=== PATIENT | male | born 1955 | race Caucasian/White ===

== ENCOUNTER 2019-05-31 09:05 | Emergency (ER) | payer SELFPAY ==
--- NOTE | 2019-05-31 09:12 | XR_ITS ---
WS: [id number] XR chest 1V portable [id number] REASON FOR EXAM: syncope FINDINGS: Decreased vascularity in both lung lopez consistent with centrilobular emphysema. There is arteriosclerotic changes in the arch of the aorta. The heart is small. There is degenerate changes of the thoracic spine. XR/XR chest 1V portable [id number] IMPRESSION: Chronic obstructive pulmonary disease.
[2019-05-31 09:15] VITALS: BP 154/86; PULSE 92; RESP 16; TEMP 36.6; O2SAT 97; BMI 22.0
[2019-05-31 09:44] LABS: Basophils % 0.5 %; Eosinophils # 0.1 10^3/uL (0.0-0.8); Eosinophils % 1.6 %; Hematocrit 40.5 % (42.0-52.0); Hemoglobin 15.2 g/dL (11.7-16.6); Lymphocytes # 0.9 10^3/uL (0.8-4.8); Mean Corpuscular HGB Conc 37.5 g/dL (30.0-36.0); Mean Corpuscular Hemoglobin 34.3 pg (28.0-34.0); Mean Corpuscular Volume 91.4 fL (80-94); Mean Platelet Volume 9.6 fL (7.4-10.4); Monocytes # 1.1 10^3/uL (0.2-0.9); Monocytes % 17.5 %; Neutrophils # 4.2 10^3/uL (1.8-7.7); Neutrophils % 65.8 %; Nucleated Red Blood Cells % 0 %; Platelet Count 234 10^3/cmm (130-400); Red Blood Count 4.43 10^6/uL (4.1-5.3); Red Cell Distribution Width 11.1 % (12.1-15.1); White Blood Count 6.4 10^3/uL (4.0-10.0)
--- NOTE | 2019-05-31 09:49 | W.ED.FALL ---
HPI - Fall General: Chief Complaint: Fall Stated Complaint: SYNCOPE Time Seen by Provider: 05/31/19 09:21 [facility] ED PFSH: Social History Smoking and tobacco status: current every day smoker Course Vital Signs: Vital signs: Vital Signs Temperature 97.8 F 05/31/19 09:15 Pulse Rate 92 05/31/19 09:15 Respiratory Rate 16 05/31/19 09:15 Blood Pressure 154/86 05/31/19 09:15 Pulse Oximetry 97 05/31/19 09:15 MDM - Fall Lab Data: Labs: Lab Results 05/31/19 Range/Units 09:37 WBC 6.4 (4.0-10.0) 10^3/ uL RBC 4.43 (4.1-5.3) 10^6/u L Hgb 15.2 (11.7-16.6) g/dL Hct 40.5 L (42.0-52.0) % MCV 91.4 (80-94) fL MCH 34.3 H (28.0-34.0) pg MCHC 37.5 H (30.0-36.0) g/dL RDW 11.1 L (12.1-15.1) % Plt Count 234 (130-400) 10^3/c mm MPV 9.6 (7.4-10.4) fL Neut % (Auto) 65.8 % Lymph % (Auto) 14.0 % [place] % (Auto) 17.5 % Eos % (Auto) 1.6 % Baso % (Auto) 0.5 % Neut # (Auto) 4.2 (1.8-7.7) 10^3/u L Lymph # (Auto) 0.9 (0.8-4.8) 10^3/u L [place] # (Auto) 1.1 H (0.2-0.9) 10^3/u L Eos # (Auto) 0.1 (0.0-0.8) 10^3/u L Baso # (Auto) 0.0 (0.0-0.1) 10^3/u L Nucleated RBC % (a uto) 0 % Nucleated RBCs # 0.0 /100WBC Coding Level of Care Code ED [employer] Source Operations Specialist for Sunshine Cardenas
[2019-05-31 10:07] LABS: Alanine Aminotransferase 49 U/L (0-41); Albumin Level 4.8 g/dL (3.5-5.2); Alkaline Phosphatase 93 IU/L (40-130); Anion Gap 15.3 (5-19); Aspartate Amino Transferase 46 U/L (0-40); Blood Urea Nitrogen 11 mg/dL (8-23); Calcium 10.1 mg/dL (8.5-10.5); Carbon Dioxide 28 mmol/L (22-29); Chloride 78 mmol/L (98-107); Glomerular Filtration Rate 136.5 mL/min (90-130); Glucose 92 mg/dL (65-115); Magnesium 1.4 mg/dL (1.7-2.3); Potassium 3.3 mmol/L (3.5-5.1); Total Bilirubin 0.8 mg/dL (0.15-1.2); Total Protein 7.8 g/dL (6.6-8.7)
[2019-05-31 10:08] LABS: Troponin(5th) Baseline 12 ng/mL (0-15)
[2019-05-31 10:12] LABS: Sodium 118 mmol/L (136-145)
== END 2019-05-31 11:34 | disposition left against medical advice (07) ==
PROVIDERS: Emergency Provider Nurse Practitioner Family; Family Provider Family Medicine; PCP Family Medicine
DX: S01.81XA Laceration without foreign body of other part of head, initial encounter (principal); R55 Syncope and collapse; R44.3 Hallucinations, unspecified; F17.200 Nicotine dependence, unspecified, uncomplicated; W19.XXXA Unspecified fall, initial encounter; Z53.21 Procedure and treatment not carried out due to patient leaving prior to being seen by health care provider
CPT/HCPCS: 36415; 71045; 80053; 83735; 84484; 85025; 99281; 99283

== ENCOUNTER 2021-10-30 09:08 | Outpatient (CLI) | payer OTHER, SELFPAY ==
--- NOTE | 2021-10-30 09:14 | FL_ITS ---
WS: [id number] FL barium enema [id number] REASON FOR EXAM: STRICTURE OF THE DESCENDING COLON FLUOROSCOPY TIME: 2min [id number] 8 spots # OF SPOT FILMS: 8 FINDINGS: Very redundant and voluminous colon. Significant overlapping of loops and extensive reflux into the s mall bowel made examination of the colon difficult. There was a short segment of the redundant sigmoid colon that demonstrated mild narrowing in a patter n consistent with the hypertrophic mural changes of diverticular disease. The mucosa was intact and t he configuration of this segment was changeable and not fixed. No intraluminal mass was identified. There are no findings of inflammatory change in the colonic mucosa. The refluxed terminal ileum was normal. FL/FL barium enema [id number] IMPRESSION: Short segment of diverticular hypertrophic change in a redundant sigmoid colon. No other significant colonic abnormality was identified.
== END 2021-10-30 09:09 | disposition home or self-care (01) ==
PROVIDERS: PCP Family Medicine; Visit Provider Internal Medicine
DX: K56.609 Unspecified intestinal obstruction, unspecified as to partial versus complete obstruction (principal)
CPT/HCPCS: 74270

== ENCOUNTER 2022-12-05 19:39 | Emergency (ER) | payer MEDICARE, SELFPAY ==
[2022-12-05 19:44] VITALS: BP 119/79; PULSE 108; RESP 18; TEMP 36.6; O2SAT 91; BMI 19.8
--- NOTE | 2022-12-05 20:34 | ECG_ITS ---
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 Measurements Intervals [place] Rate: 88 P: 74 VA: 177 QRS: 81 QRSD: 98 T: 79 QT: 347 QTc: 422 Interpretive Statements SINUS RHYTHM No previous ECG available for comparison Electronically Signed On 12-06-2022 14:42:15 CDT by Trip Courtney M.D. [id number]
--- NOTE | 2022-12-05 20:34 | XRR_ITS ---
PROCEDURE INFORMATION: Exam: XR Chest Exam date and time: 12/05/2022 8:43 PM Age: 67 years old Clinical indication: Other: Syncopal episode; Additional info: Syncope TECHNIQUE: Imaging protocol: Radiologic exam of the chest. Views: 1 view. COMPARISON: CR XR chest 1V portable [id number] 05/31/2019 9:27 AM FINDINGS: Lungs: Unremarkable. No consolidation. Pleural spaces: Unremarkable. No pleural effusion. No pneumothorax. Heart/Mediastinum: Unremarkable. No cardiomegaly. Bones/joints: Unremarkable. XR/XR chest 1V portable [id number] IMPRESSION: No acute findings.
--- NOTE | 2022-12-05 20:34 | CTR_ITS ---
PROCEDURE INFORMATION: Exam: CT Head Without Contrast Exam date and time: 12/05/2022 8:51 PM Age: 67 years old Clinical indication: Syncope and collapse; Patient HX: Syncopal episode with headstrike; Additional info: Fall syncope head trauma TECHNIQUE: Imaging protocol: Computed tomography of the head without contrast. Radiation optimization: All CT scans at this facility use at least one of these dose optimization techniques: automated exposure control; mA and/or kV adjustment per patient size (includes targeted exams where dose is matched to clinical indication); or iterative reconstruction. REPORTING DATA: Count of CT and Cardiac NM exams in prior 12 months: This patient has received 0 known CTs and 0 known cardiac nuclear medicine studies in the 12 months prior to the current study. COMPARISON: No relevant prior studies available. RADIATION DOSE METRICS: Total DLP (mGy-cm): 1032.88 FINDINGS: Brain: Normal. No hemorrhage. Unremarkable white matter. No mass effect. Cerebral ventricles: No ventriculomegaly. Paranasal sinuses: Mild mucosal thickening in the paranasal sinuses. No air-fluid level. Mastoid air cells: Visualized mastoid air cells are well aerated. Bones/joints: Unremarkable. No acute fracture. Soft tissues: Unremarkable. CT/CT head wo con* [id number] IMPRESSION: No acute intracranial abnormality.
--- NOTE | 2022-12-05 20:38 | W.ED.FALL ---
Documented by User: Timoteo Ramos DO 12/05/22 21:29 HPI - Fall General: Chief Complaint: Fall Stated Complaint: falling / not eating Time Seen by Provider: 12/05/22 20:14 History of Present Illness: Presents to the ER with complaints of chronic nausea and vomiting over the last month. Patient states he has not really eaten or drink anything mouth to anything because every time he eats or drinks it causes severe nausea vomiting. Patient also states he is fallen several times once hitting his head on a concrete floor. Patient does not remember falling usually. Son states that he felt even today. Patient denies any pain at this time other generic abdominal pain. Patient denies any fever or chills. On review of labs patient has a history of hyponatremia with sodium being 118 in the past Review of Systems General: Reports: 10 or more systems reviewed and unremarkable except in HPI and below PFSH ED PFSH: Social History Smoking and tobacco status: current every day smoker Physical Exam Const: COMMON NORMALS: no acute distress, average body habitus, patient oriented x3, no limitations, alert and well nourished HENMT: COMMON NORMALS: normocephalic, atraumatic, hearing grossly normal bilaterally, external ears normal, Normal external nose present and moist oral mucous membranes HEAD & SCALP: normocephalic and atraumatic NOSE: Normal external nose present EXTERNAL EAR: Yes external ears normal Eye: COMMON NORMALS: Equal, round and reactive pupils present, EOMs intact bilaterally, conjunctivae normal and no scleral icterus CONJUNCTIVA: Yes conjunctivae normal PUPIL: Yes Equal, round and reactive pupils present Neck/C-Spine: COMMON NORMALS: full ROM, no lymphadenopathy, supple, no meningeal signs, no JVD and Thyroid normal THYROID: Thyroid normal Chest: COMMONS NORMALS: normal inspection of the chest and normal palpation of entire chest wall Resp: COMMON NORMALS: normal respiratory effort, No retractions, No use of accessory muscles and clear to auscultation bilaterally AUSCULTATION: clear to auscultation bilaterally Cardio: COMMON NORMALS: no JVD, regular rate, regular rhythm, S1 normal heart sound present, S2 normal heart sound present, No gallops present (Cardio), No clicks present (Cardio), No murmurs present (Cardio) and No rub (Cardio) RATE: regular rate RHYTHM: regular rhythm HEART SOUNDS: S1 normal heart sound present and S2 normal heart sound present GI: COMMON NORMALS: Normal to inspection, nondistended, normoactive bowel sounds present, Soft to palpation and No hepatosplenomegaly present; negative for non-tender (Diffusely mildly tender) PALPATION: Yes Soft to palpation and Yes No hepatosplenomegaly present : COMMON NORMALS: Yes no CVA tenderness BLADDER/KIDNEY EXAM: Yes no CVA tenderness Back/Pelvis: COMMON NORMALS: no CVA tenderness Neuro: COMMON NORMALS: patient oriented x3 SENSORIUM/ORIENTATION: Yes alert MENINGEAL SIGNS: Yes no meningeal signs Course Vital Signs: Vital signs: Vital Signs Temperature 97.8 F 12/05/22 19:44 Pulse Rate 87 12/06/22 01:19 Respiratory Rate 18 12/06/22 01:19 Blood Pressure 150/83 12/06/22 01:19 Pulse Oximetry 94 12/06/22 01:19 Oxygen Delivery Me thod Nasal Cannula 12/05/22 23:52 Oxygen Flow Rate 4 12/05/22 23:52 MDM - Fall Differential Diagnosis Unlikely syncope, dislocation of shoulder region, fracture of wrist, compression fracture, concussion with loss of consciousness or concussion without loss of consciousness Medical Records I reviewed the patient's medical records. Lab Data I reviewed the patient's lab results. 12/05/22 20:48 12/05/22 20:48 Radiology Impressions Chest X-Ray 12/05/22 20:34 IMPRESSION: No acute findings. Head CT 12/05/22 20:34 IMPRESSION: No acute intracranial abnormality. Abdomen/Pelvis CT 12/05/22 21:40 IMPRESSION: 1. No acute findings. 2. Hepatomegaly with diffuse fatty infiltration. 3. Large left inguinal hernia containing a loop of nonobstructed sigmoid colon. Laboratory Results WBC 4.81 10^3/uL (3.29-11.43) 12/05/22 20:48 RBC 4.86 10^6/uL (3.85-5.65) 12/05/22 20:48 Hgb 16.20 g/dL (11.27-16.99) 12/05/22 20:48 Hct 45.2 % (37-53) 12/05/22 20:48 MCV 93.0 fl (82-101) 12/05/22 20:48 MCH 33.3 pg (27-33) H 12/05/22 20:48 MCHC 35.8 g/dL (30-55) 12/05/22 20:48 RDW 13.4 % (12.1-15.1) 12/05/22 20:48 Plt Count 91 10^3/cmm (157-399) L 12/05/22 20:48 MPV 10.4 fL (7.4-10.4) 12/05/22 20:48 Neut % (Auto) 66.9 % 12/05/22 20:48 Lymph % (Auto) 18.3 % 12/05/22 20:48 [place] % (Auto) 11.9 % 12/05/22 20:48 Eos % (Auto) 0.8 % 12/05/22 20:48 Baso % (Auto) 1.5 % 12/05/22 20:48 Neut # (Auto) 3.22 10^3/uL (1.8-7.7) 12/05/22 20:48 Lymph # (Auto) 0.9 10^3/uL (0.8-4.8) 12/05/22 20:48 [place] # (Auto) 0.6 10^3/uL (0.2-0.9) 12/05/22 20:48 Eos # (Auto) 0.0 10^3/uL (0.0-0.8) 12/05/22 20:48 Baso # (Auto) 0.1 10^3/uL (0.0-0.1) 12/05/22 20:48 Nucleated RBC % (auto) 0 % 12/05/22 20:48 Nucleated RBCs # 0.0 /100WBC 12/05/22 20:48 Sodium 130 mmol/L (136-145) L 12/05/22 20:48 Potassium 4.3 mmol/L (3.5-5.1) 12/05/22 20:48 Chloride 87 mmol/L (98-107) L 12/05/22 20:48 Carbon Dioxide 21 mmol/L (22-29) L 12/05/22 20:48 Anion Gap 26.3 (5-19) H 12/05/22 20:48 BUN 17 mg/dL (8-23) 12/05/22 20:48 Creatinine 0.6 mg/dL (0.7-1.2) L 12/05/22 20:48 GFR Calculation 135.2 mL/min (90-130) H 12/05/22 20:48 Glucose 75 mg/dL (65-115) 12/05/22 20:48 Calculated Osmolality 270 mOsm/kg (285-295) L 12/05/22 20:48 Lactic Acid 3.8 mmol/L (0.5-2.2) H 12/05/22 21:20 Lactic Acid (Sepsis) 3.8 mmol/L (0.5-2.2) H 12/06/22 00:20 Calcium 8.6 mg/dL (8.5-10.5) 12/05/22 20:48 Magnesium 1.6 mg/dL (1.7-2.3) L 12/05/22 20:48 Total Bilirubin 0.9 mg/dL (0.15-1.2) 12/05/22 20:48 AST 172 U/L (0-40) H 12/05/22 20:48 ALT 110 U/L (0-41) H 12/05/22 20:48 Alkaline Phosphatase 136 U/L (40-130) H 12/05/22 20:48 Creatine Kinase 251 U/L (39-308) 12/05/22 21:20 C-Reactive Protein 3.0 mg/L (0.0-4.9) 12/05/22 20:48 Total Protein 7.2 g/dL (6.6-8.7) 12/05/22 20:48 Albumin 4.3 g/dL (3.5-5.2) 12/05/22 20:48 Globulin 2.9 g/dL (1.3-4.6) 12/05/22 20:48 TSH 0.94 uIU/mL (0.27-4.20) 12/05/22 20:48 Urine Color Yellow (Yellow) 12/05/22 22:00 Urine Appearance Clear (CLEAR) 12/05/22 22:00 Urine pH 5 (5-7) 12/05/22 22:00 Ur Specific [place] 1.020 (1.005-1.030) 12/05/22 22:00 Urine Protein 3+ (Negative) H 12/05/22 22:00 Urine Glucose (UA) Norm (Normal) 12/05/22 22:00 Urine Ketones 2+ (Negative) H 12/05/22 22:00 Urine Blood 2+ (Negative) H 12/05/22 22:00 Urine Nitrate Negative (Negative) 12/05/22 22:00 Urine Bilirubin Neg (Negative) 12/05/22 22:00 Urine Urobilinogen 1 mg/dL (Negative) H 12/05/22 22:00 Ur Leukocyte Esterase Negative (Negative) 12/05/22 22:00 Urine RBC 0-4 /hpf (0-2) H 12/05/22 22:00 Urine WBC 0-4 /hpf (0-5) H 12/05/22 22:00 Ur Squamous Epith Cells 0-4 /hpf (0-5) H 12/05/22 22:00 Amorphous Sediment Not Reportable 12/05/22 22:00 Urine Bacteria Trace /hpf (NONE) 12/05/22 22:00 Urine Mucus 1+ /hpf 12/05/22 22:00 Salicylates < 0.3 mg/dL (3-10) L 12/05/22 21:20 Acetaminophen < 5.0 ug/mL (10-30) L 12/05/22 21:20 Ethyl Alcohol 416 mg/dL (0-10) H* 12/05/22 21:20 Serum Ketones Negative (Negative) 12/05/22 21:20 Hepatitis A IgM Ab Non-reactive (Nonreactive) 12/05/22 21:20 Hep Bs Antigen Non-reactive (Nonreactive) 12/05/22 21:20 Hep B Core IgM Ab Non-reactive (Nonreactive) 12/05/22 21:20 Hepatitis C Antibody Non-reactive (Nonreactive) 12/05/22 21:20 EKG Data EKG 1: I personally reviewed and interpreted this EKG as follows: EKG interpretation date: 12/05/22 EKG interpretation time: 21:16 Prior EKG tracings: not available for review Interpretation: EKG shows ventricular rate of 88 bpm, MA interval 177, QRS duration 98, QTc of 393, sinus rhythm, no ST-T wave changes Discharge Plan Discharge Patient Disposition: Home Clinical Impression: Alcohol intoxication, Thrombocytopenia, Inguinal hernia Condition: Stable Discharge Orders: Discharge ED (Routine); Ordered 12/06/22 Ordered By: Percy Freedman Referrals: Wagner Ivan MD [Physician] - 4-7 days Yao Mckeon MD [Primary Care Provider] - Patient Instructions: Inguinal Hernia (ED), Alcohol Intoxication (ED), Thrombocytopenia (ED) Activity Restrictions/Additional Instructions: Return for fever greater than 100, vomiting liquids or medications, significant blood in the stool, worsening abdominal pain, other concerning symptoms. Case management will make an appointment with the surgery clinic for you for follow-up. You should get a call from them at the beginning of the week. If not, you may call the number listed above. Coding Level of Care Code ED Shipper Receiver for Chg Fwd Documented by User: Percy Freedman DO 12/06/22 05:08 HPI - Fall General: Chief Complaint: Fall Stated Complaint: falling / not eating Time Seen by Provider: 12/05/22 20:14 PFSH ED PFSH: Social History Smoking and tobacco status: current every day smoker Course Vital Signs: Vital signs: Vital Signs Temperature 97.8 F 12/05/22 19:44 Pulse Rate 87 12/06/22 01:19 Respiratory Rate 18 12/06/22 01:19 Blood Pressure 150/83 12/06/22 01:19 Pulse Oximetry 94 12/06/22 01:19 Oxygen Delivery Me thod Nasal Cannula 12/05/22 23:52 Oxygen Flow Rate 4 12/05/22 23:52 MDM - Fall Medical Decision Making Patient received in checkout from Dr. Ramos pending CT findings. Vitals are stable. CBC shows platelet count of 91. Otherwise not remarkable. BMP shows a sodium of 130, likely pseudohyponatremia given his alcohol level of 416. He is a daily drinker. Chest x-ray is nonacute. Head CT is nonacute. Abdomen pelvis CT shows a large left inguinal hernia containing a loop of nonobstructed sigmoid colon. The patient has an elevated lactic acid level, again likely related to alcohol use. He was encouraged to stop using alcohol. We will get him an appointment with surgery as an outpatient for follow-up on his inguinal hernia that does not appear obstructed or incarcerated at this point. To return in the meantime for any worsening symptoms. Lab Data 12/05/22 20:48 12/05/22 20:48 Radiology Impressions Chest X-Ray 12/05/22 20:34 IMPRESSION: No acute findings. Head CT 12/05/22 20:34 IMPRESSION: No acute intracranial abnormality. Abdomen/Pelvis CT 12/05/22 21:40 IMPRESSION: 1. No acute findings. 2. Hepatomegaly with diffuse fatty infiltration. 3. Large left inguinal hernia containing a loop of nonobstructed sigmoid colon. Laboratory Results WBC 4.81 10^3/uL (3.29-11.43) 12/05/22 20:48 RBC 4.86 10^6/uL (3.85-5.65) 12/05/22 20:48 Hgb 16.20 g/dL (11.27-16.99) 12/05/22 20:48 Hct 45.2 % (37-53) 12/05/22 20:48 MCV 93.0 fl (82-101) 12/05/22 20:48 MCH 33.3 pg (27-33) H 12/05/22 20:48 MCHC 35.8 g/dL (30-55) 12/05/22 20:48 RDW 13.4 % (12.1-15.1) 12/05/22 20:48 Plt Count 91 10^3/cmm (157-399) L 12/05/22 20:48 MPV 10.4 fL (7.4-10.4) 12/05/22 20:48 Neut % (Auto) 66.9 % 12/05/22 20:48 Lymph % (Auto) 18.3 % 12/05/22 20:48 [place] % (Auto) 11.9 % 12/05/22 20:48 Eos % (Auto) 0.8 % 12/05/22 20:48 Baso % (Auto) 1.5 % 12/05/22 20:48 Neut # (Auto) 3.22 10^3/uL (1.8-7.7) 12/05/22 20:48 Lymph # (Auto) 0.9 10^3/uL (0.8-4.8) 12/05/22 20:48 [place] # (Auto) 0.6 10^3/uL (0.2-0.9) 12/05/22 20:48 Eos # (Auto) 0.0 10^3/uL (0.0-0.8) 12/05/22 20:48 Baso # (Auto) 0.1 10^3/uL (0.0-0.1) 12/05/22 20:48 Nucleated RBC % (auto) 0 % 12/05/22 20:48 Nucleated RBCs # 0.0 /100WBC 12/05/22 20:48 Sodium 130 mmol/L (136-145) L 12/05/22 20:48 Potassium 4.3 mmol/L (3.5-5.1) 12/05/22 20:48 Chloride 87 mmol/L (98-107) L 12/05/22 20:48 Carbon Dioxide 21 mmol/L (22-29) L 12/05/22 20:48 Anion Gap 26.3 (5-19) H 12/05/22 20:48 BUN 17 mg/dL (8-23) 12/05/22 20:48 Creatinine 0.6 mg/dL (0.7-1.2) L 12/05/22 20:48 GFR Calculation 135.2 mL/min (90-130) H 12/05/22 20:48 Glucose 75 mg/dL (65-115) 12/05/22 20:48 Calculated Osmolality 270 mOsm/kg (285-295) L 12/05/22 20:48 Lactic Acid 3.8 mmol/L (0.5-2.2) H 12/05/22 21:20 Lactic Acid (Sepsis) 3.8 mmol/L (0.5-2.2) H 12/06/22 00:20 Calcium 8.6 mg/dL (8.5-10.5) 12/05/22 20:48 Magnesium 1.6 mg/dL (1.7-2.3) L 12/05/22 20:48 Total Bilirubin 0.9 mg/dL (0.15-1.2) 12/05/22 20:48 AST 172 U/L (0-40) H 12/05/22 20:48 ALT 110 U/L (0-41) H 12/05/22 20:48 Alkaline Phosphatase 136 U/L (40-130) H 12/05/22 20:48 Creatine Kinase 251 U/L (39-308) 12/05/22 21:20 C-Reactive Protein 3.0 mg/L (0.0-4.9) 12/05/22 20:48 Total Protein 7.2 g/dL (6.6-8.7) 12/05/22 20:48 Albumin 4.3 g/dL (3.5-5.2) 12/05/22 20:48 Globulin 2.9 g/dL (1.3-4.6) 12/05/22 20:48 TSH 0.94 uIU/mL (0.27-4.20) 12/05/22 20:48 Urine Color Yellow (Yellow) 12/05/22 22:00 Urine Appearance Clear (CLEAR) 12/05/22 22:00 Urine pH 5 (5-7) 12/05/22 22:00 Ur Specific [place] 1.020 (1.005-1.030) 12/05/22 22:00 Urine Protein 3+ (Negative) H 12/05/22 22:00 Urine Glucose (UA) Norm (Normal) 12/05/22 22:00 Urine Ketones 2+ (Negative) H 12/05/22 22:00 Urine Blood 2+ (Negative) H 12/05/22 22:00 Urine Nitrate Negative (Negative) 12/05/22 22:00 Urine Bilirubin Neg (Negative) 12/05/22 22:00 Urine Urobilinogen 1 mg/dL (Negative) H 12/05/22 22:00 Ur Leukocyte Esterase Negative (Negative) 12/05/22 22:00 Urine RBC 0-4 /hpf (0-2) H 12/05/22 22:00 Urine WBC 0-4 /hpf (0-5) H 12/05/22 22:00 Ur Squamous Epith Cells 0-4 /hpf (0-5) H 12/05/22 22:00 Amorphous Sediment Not Reportable 12/05/22 22:00 Urine Bacteria Trace /hpf (NONE) 12/05/22 22:00 Urine Mucus 1+ /hpf 12/05/22 22:00 Salicylates < 0.3 mg/dL (3-10) L 12/05/22 21:20 Acetaminophen < 5.0 ug/mL (10-30) L 12/05/22 21:20 Ethyl Alcohol 416 mg/dL (0-10) H* 12/05/22 21:20 Serum Ketones Negative (Negative) 12/05/22 21:20 Hepatitis A IgM Ab Non-reactive (Nonreactive) 12/05/22 21:20 Hep Bs Antigen Non-reactive (Nonreactive) 12/05/22 21:20 Hep B Core IgM Ab Non-reactive (Nonreactive) 12/05/22 21:20 Hepatitis C Antibody Non-reactive (Nonreactive) 12/05/22 21:20 Discharge Plan Discharge Patient Disposition: Home Clinical Impression: Alcohol intoxication, Thrombocytopenia, Inguinal hernia Condition: Stable Discharge Orders: Discharge ED (Routine); Ordered 12/06/22 Ordered By: Percy Freedman Referrals: Wagner Ivan MD [Physician] - 4-7 days Yao Mckeon MD [Primary Care Provider] - Patient Instructions: Inguinal Hernia (ED), Alcohol Intoxication (ED), Thrombocytopenia (ED) Activity Restrictions/Additional Instructions: Return for fever greater than 100, vomiting liquids or medications, significant blood in the stool, worsening abdominal pain, other concerning symptoms. Case management will make an appointment with the surgery clinic for you for follow-up. You should get a call from them at the beginning of the week. If not, you may call the number listed above. Coding Level of Care Code ED Shipper Receiver for Sunshine Cardenas
[2022-12-05 21:03] VITALS: PULSE 92; RESP 15; O2SAT 97
[2022-12-05 21:03] LABS: Basophils # 0.1 10^3/uL (0.0-0.1); Basophils % 1.5 %; Eosinophils % 0.8 %; Hematocrit 45.2 % (37-53); Lymphocytes # 0.9 10^3/uL (0.8-4.8); Lymphocytes % 18.3 %; Mean Corpuscular HGB Conc 35.8 g/dL (30-55); Mean Corpuscular Hemoglobin 33.3 pg (27-33); Mean Platelet Volume 10.4 fL (7.4-10.4); Monocytes # 0.6 10^3/uL (0.2-0.9); Monocytes % 11.9 %; Neutrophils # 3.22 10^3/uL (1.8-7.7); Neutrophils % 66.9 %; Nucleated Red Blood Cells % 0 %; Platelet Count 91 10^3/cmm (157-399); Red Blood Count 4.86 10^6/uL (3.85-5.65); Red Cell Distribution Width 13.4 % (12.1-15.1); White Blood Count 4.81 10^3/uL (3.29-11.43)
[2022-12-05] MEDS: sodium chloride 0.9% 1,000 ML 999 ML IV ×2 (21:26→23:02)
[2022-12-05] MEDS: ondansetron 2 mg/ML SDV 2 mL 4 MG IVP (21:26)
[2022-12-05 21:32] LABS: Alanine Aminotransferase 110 U/L (0-41); Albumin Level 4.3 g/dL (3.5-5.2); Alkaline Phosphatase 136 U/L (40-130); Anion Gap 26.3 (5-19); Aspartate Amino Transferase 172 U/L (0-40); Blood Urea Nitrogen 17 mg/dL (8-23); Calcium 8.6 mg/dL (8.5-10.5); Carbon Dioxide 21 mmol/L (22-29); Chloride 87 mmol/L (98-107); Globulin 2.9 g/dL (1.3-4.6); Glomerular Filtration Rate 135.2 mL/min (90-130); Glucose 75 mg/dL (65-115); Magnesium 1.6 mg/dL (1.7-2.3); Osmolality Calculated 270 mOsm/kg (285-295); Potassium 4.3 mmol/L (3.5-5.1); Sodium 130 mmol/L (136-145); Total Bilirubin 0.9 mg/dL (0.15-1.2); Total Protein 7.2 g/dL (6.6-8.7)
[2022-12-05 21:34] LABS: Thyroid Stimulating Hormone 0.94 uIU/mL (0.27-4.20)
--- NOTE | 2022-12-05 21:40 | CTR_ITS ---
PROCEDURE INFORMATION: Exam: CT Abdomen And Pelvis With Contrast Exam date and time: 12/05/2022 10:42 PM Age: 67 years old Clinical indication: Nausea and vomiting; Abdominal pain; Generalized; Patient HX: Abd pain with n/v and elevated lfts; Additional info: Abd pain, n/v, elevated lfts, low plts TECHNIQUE: Imaging protocol: Computed tomography of the abdomen and pelvis with contrast. Radiation optimization: All CT scans at this facility use at least one of these dose optimization techniques: automated exposure control; mA and/or kV adjustment per patient size (includes targeted exams where dose is matched to clinical indication); or iterative reconstruction. Contrast material: OMNI 350; Contrast volume: 100 ml; Contrast route: INTRAVENOUS (IV); REPORTING DATA: Count of CT and Cardiac NM exams in prior 12 months: This patient has received 0 known CTs and 0 known cardiac nuclear medicine studies in the 12 months prior to the current study. COMPARISON: CR FL barium enema [id number] 10/30/2021 9:20 AM RADIATION DOSE METRICS: Total DLP (mGy-cm): 798.33 FINDINGS: Diaphragm: Hiatal hernia. Liver: Diffuse fatty infiltration of the liver. No suspicious nodule. 20.5 cm in length. Gallbladder and bile ducts: Normal. No calcified stones. No ductal dilation. Pancreas: Normal. No ductal dilation. Spleen: Normal. No splenomegaly. Adrenal glands: Normal. No mass. Kidneys and ureters: Normal. No hydronephrosis. Stomach and bowel: Large left inguinal hernia containing a long loop of proximal sigmoid colon. No obstruction or inflammation in the hernia. The stomach and small bowel are unremarkable. No wall thickening or obstruction. Appendix: The appendix is visualized and is normal. Intraperitoneal space: Unremarkable. No free air. No significant fluid collection. Vasculature: Arterial calcifications. No aneurysm. Lymph nodes: Unremarkable. No enlarged lymph nodes. Urinary bladder: Unremarkable as visualized. Reproductive: Unremarkable as visualized. Bones/joints: Mild curvature and degenerative changes of the spine. No acute fracture. Soft tissues: Tiny fat containing umbilical hernia. Small fat containing right inguinal hernia. Large left inguinal hernia as discussed above. Other findings: Emphysema. CT/CT abdomen pelvis w con* [id number] IMPRESSION: 1. No acute findings. 2. Hepatomegaly with diffuse fatty infiltration. 3. Large left inguinal hernia containing a loop of nonobstructed sigmoid colon.
[2022-12-05 21:50] VITALS: BP 142/84; PULSE 92; RESP 16; O2SAT 97
--- NOTE | 2022-12-05 21:58 | PC.NURSE ---
MAGNESIUM NOT VERIFIED BY PHARM, CALLED AND PHARMACY IS NOT AT COMPUTER, SHE IS RUNNING MEDS.
[2022-12-05 22:13] LABS: Ketone (Acetest) Serum Negative (Negative)
[2022-12-05 22:14] LABS: Add Urine Microscopic? YES; Bilirubin Urine Neg (Negative); Blood Urine 2+ (Negative); Glucose Urine UA Norm (Normal); Ketones Urine 2+ (Negative); Leukocyte Esterase Urine Negative (Negative); Nitrate Urine Negative (Negative); Protein Urine 3+ (Negative); Urine Appearance Clear (CLEAR); Urine Color Yellow (Yellow); Urobilinogen Urine 1 mg/dL (Negative); pH Urine 5 (5-7)
[2022-12-05 22:15] LABS: Add Urine Culture? No; Bacteria Urine TRACE /hpf; Mucus Urine 1+ /hpf; RBC Urine 0-4 /hpf (0-2); Squamous Epithelial Cell Urine 0-4 /hpf (0-5); WBC Urine 0-4 /hpf (0-5)
[2022-12-05 22:26] VITALS: BP 163/88; PULSE 87; RESP 18; O2SAT 90
[2022-12-05 22:38] LABS: Creatine Phosphokinase 251 U/L (39-308); Lactic Sepsis W/Reflex 3.8 mmol/L (0.5-2.2)
[2022-12-05 22:42] LABS: Acetaminophen < 5.0 ug/mL (10-30); Salicylate < 0.3 mg/dL (3-10)
[2022-12-05 22:43] LABS: Alcohol Level 416 mg/dL (0-10)
[2022-12-05] MEDS: iohexol 350 mg/mL 500 mL Btl (per mL) IV (22:43)
--- NOTE | 2022-12-05 22:44 | PC.NURSE ---
Dr Ramos notified of critical lab value, alcohol of 416. No new orders received at this time.
[2022-12-05 23:44] LABS: Reflex Lactate Order REFLEX LACTIC ORDERD
[2022-12-05 23:52] VITALS: BP 92/72; PULSE 84; RESP 20; O2SAT 96
[2022-12-06 00:13] LABS: Hepatitis A Antibody IgM Non-Reactive (Nonreactive); Hepatitis B Core IgM Non-Reactive (Nonreactive); Hepatitis B Surface Antigen Non-Reactive (Nonreactive); Hepatitis C Virus Antibody Non-Reactive (Nonreactive)
[2022-12-06 01:01] LABS: Lactic Acid level (Lactate) 3.8 mmol/L (0.5-2.2)
[2022-12-06 01:19] VITALS: BP 150/83; PULSE 87; RESP 18; O2SAT 94
--- NOTE | 2022-12-08 10:48 | DCPLANNER ---
Addendum entered by Dora Donaldson 12/19/22 09:54: enterprise architect manager received the following messages from the general surgery clinic regarding follow up appointment: LVM 12/12/22 On 12/09/22 @ 08:49 Sergio Vines Wrote To General Surgery Front Off talked with patients son, Mr. Vázquez is currently being put on an ambulance to go to the er. The son said he would call back to schedule an hernando with us at another time. On 12/08/22 @ 11:53 Sergio Vines Wrote To General Surgery Front Off Called pt left a 12/08/22. Original Note: enterprise architect manager had message to schedule a follow up appointment for patient for general surgery. enterprise architect manager sent patients information to the front office staff at general surgery. Patients information will be printed and reviewed. Clinic will call patient with appointment information.
== END 2022-12-06 01:36 | disposition home or self-care (01) ==
PROVIDERS: Emergency Medicine; Emergency Provider Emergency Medicine; PCP Family Medicine
DX: F10.129 Alcohol abuse with intoxication, unspecified (principal); Y90.8 Blood alcohol level of 240 mg/100 ml or more; D69.6 Thrombocytopenia, unspecified; K40.90 Unilateral inguinal hernia, without obstruction or gangrene, not specified as recurrent; F17.210 Nicotine dependence, cigarettes, uncomplicated
CPT/HCPCS: 36415; 70450; 71045; 74177; 80053; 80074; 80307; 81001; 82009; 82550; 83605; 83735; 84443; 85025; 86140; 93005; 96365; 96375; 99285; J2405; J3475; J7030; Q9967

== ENCOUNTER 2022-12-09 09:36 | Inpatient (IN) | payer MEDICARE, SELFPAY ==
[2022-12-09] VITALS (7 sets, daily range): BP systolic 105–129; BP diastolic 68–76; PULSE 76–113; RESP 14–16; TEMP 37.2–38.3; O2SAT 95–96; BMI 21.2
--- NOTE | 2022-12-09 10:06 | XR_ITS ---
WS: [id number] Exam: XR chest 1V portable [id number] Date/Time of Exam: 12/09/2022 10:09 AM Reason For Exam: ams, fever Comparison 12/05/2022. The lungs are clear. Normal cardiomediastinal silhouette. No pleural effusions. Regional bony element s are intact. IMPRESSION: 1. No acute cardiopulmonary process.
--- NOTE | 2022-12-09 10:06 | W.ED.AMS ---
HPI - Altered Mental Status General: Chief Complaint: Altered Mental Status Stated Complaint: Decreased responsiveness Time Seen by Provider: 12/09/22 09:44 History of Present Illness: Was brought in by EMS for altered mental status. Patient's son is at bedside and said yesterday he was perfectly fine in his self. But when he got up to go to work this morning about 330 his father was up and did not know where he was or how he got there or how long it been there. Patient stated he has been living with him for about the last month and has been retired for several years. The patient stated he thought he was needed to go to work. Patient fell a few weeks ago at his head patient had his head CT at his last visit here on 825. Which was unremarkable. Review of Systems General: Reports: 10 or more systems reviewed and unremarkable except in HPI and below PFSH ED PFSH: Medical History (Updated 12/09/22 @ 17:59 by Mati Talavera MD) History of alcoholism Hyponatremia Surgical History (Updated 12/09/22 @ 17:54 by Mati Talavera MD) History of chest tube placement Family History (Updated 12/09/22 @ 17:55 by Mati Talavera MD) Mother Lung cancer Social History (Updated 12/09/22 @ 17:58 by Mati Talavera MD) Smoking and tobacco status: current every day smoker Alcohol intake: current Alcohol intake frequency: 3 or more drinks per day Substance/Drug Use: never Physical Exam Const: COMMON NORMALS: alert; negative for patient oriented x3 (Knows the state he lives in, and the location he is currently in. ) OTHER: Does not know date month year or season. HENMT: COMMON NORMALS: normocephalic, atraumatic, hearing grossly normal bilaterally, external ears normal, Normal external nose present and moist oral mucous membranes HEAD & SCALP: normocephalic and atraumatic NOSE: Normal external nose present EXTERNAL EAR: Yes external ears normal Eye: COMMON NORMALS: Equal, round and reactive pupils present, EOMs intact bilaterally, conjunctivae normal and no scleral icterus CONJUNCTIVA: Yes conjunctivae normal PUPIL: Yes Equal, round and reactive pupils present Neck/C-Spine: COMMON NORMALS: full ROM, no lymphadenopathy, supple, no meningeal signs, no JVD and Thyroid normal THYROID: Thyroid normal Lymph: LYMPHATIC: no lymphadenopathy noted Chest: COMMONS NORMALS: normal inspection of the chest and normal palpation of entire chest wall Resp: COMMON NORMALS: normal respiratory effort, No retractions, No use of accessory muscles and clear to auscultation bilaterally AUSCULTATION: clear to auscultation bilaterally Cardio: COMMON NORMALS: no JVD, regular rate, regular rhythm, S1 normal heart sound present, S2 normal heart sound present, No gallops present (Cardio), No clicks present (Cardio), No murmurs present (Cardio) and No rub (Cardio) RATE: regular rate RHYTHM: regular rhythm HEART SOUNDS: S1 normal heart sound present and S2 normal heart sound present GI: COMMON NORMALS: Normal to inspection, nondistended, normoactive bowel sounds present, Soft to palpation, non-tender, No hepatosplenomegaly present and no masses PALPATION: Yes Soft to palpation and Yes No hepatosplenomegaly present : COMMON NORMALS: Yes no CVA tenderness BLADDER/KIDNEY EXAM: Yes no CVA tenderness Back/Pelvis: COMMON NORMALS: no CVA tenderness Neuro: COMMON NORMALS: negative for patient oriented x3 (Knows the state he lives in, and the location he is currently in. ) SENSORIUM/ORIENTATION: Yes alert MENINGEAL SIGNS: Yes no meningeal signs Course Vital Signs: Vital signs: Vital Signs Temperature 97.7 F 12/10/22 08:00 Pulse Rate 100 12/10/22 08:00 Respiratory Rate 20 H 12/10/22 08:00 Blood Pressure 139/80 12/10/22 08:00 Pulse Oximetry 96 12/10/22 08:00 Oxygen Delivery Me thod Nasal Cannula 12/10/22 08:00 MDM - Altered Mental Status Medical Decision Making Patient presents to the ER for altered mental status. Patient was seen about 3 days ago for the same thing and was found to be severely intoxicated. Since then patient has gotten better but he become worse. Lab work was obtained which shows the patient now has a low sodium of 124, urine negative for infection, urine drug screen negative, CT scan of the chest abdomen pelvis essentially negative for altered mental status causing findings. Patient was tachycardic at 113 bpm and did have a temperature of 100.9 ?F upon arrival. Blood cultures were obtained. Platelets were noted to be low. Magnesium 1.2 was noted patient was given 2 g of magnesium and 1 L of normal saline IV. Dr. Pretty was consulted who agreed to accept the patient for further evaluation and treatment. Differential Diagnosis Likely alcoholic intoxication and altered mental status; Unlikely delirium, dementia, hypoglycemia, hyponatremia, subarachnoid hemorrhage or sepsis Medical Records I reviewed the patient's medical records. Lab Data I reviewed the patient's lab results. 12/10/22 04:38 12/10/22 07:53 Radiology Impressions Chest/Abdomen/Pelvis CT 12/09/22 15:56 IMPRESSION: 1. Mild aneurysm of the ascending thoracic aorta (4.4 cm 2. Pulmonary emphysema. 3. Mild basilar atelectasis. IMPRESSION: 1. Fatty liver 2. Left inguinal hernia 3. No acute finding. Laboratory Results WBC 5.93 10^3/uL (3.29-11.43) 12/09/22 10:26 RBC 4.01 10^6/uL (3.85-5.65) 12/09/22 10:26 Hgb 13.50 g/dL (11.27-16.99) 12/09/22 10:26 Hct 37.6 % (37-53) 12/09/22 10:26 MCV 93.8 fl (82-101) 12/09/22 10:26 MCH 33.7 pg (27-33) H 12/09/22 10:26 MCHC 35.9 g/dL (30-55) 12/09/22 10:26 RDW 13.1 % (12.1-15.1) 12/09/22 10:26 Plt Count 56 10^3/cmm (157-399) L 12/09/22 10:26 MPV 12.3 fL (7.4-10.4) H 12/09/22 10:26 Neut % (Auto) 80.8 % 12/09/22 10:26 Lymph % (Auto) 7.4 % 12/09/22 10:26 Citrus % (Auto) 10.3 % 12/09/22 10:26 Eos % (Auto) 0.7 % 12/09/22 10:26 Baso % (Auto) 0.3 % 12/09/22 10:26 Neut # (Auto) 4.79 10^3/uL (1.8-7.7) 12/09/22 10:26 Lymph # (Auto) 0.4 10^3/uL (0.8-4.8) L 12/09/22 10:26 Citrus # (Auto) 0.6 10^3/uL (0.2-0.9) 12/09/22 10:26 Eos # (Auto) 0.0 10^3/uL (0.0-0.8) 12/09/22 10:26 Baso # (Auto) 0.0 10^3/uL (0.0-0.1) 12/09/22 10:26 Nucleated RBC % (auto) 0 % 12/09/22 10:26 Nucleated RBCs # 0.0 /100WBC 12/09/22 10:26 Peripher Smr Path Cons Sent for review 12/09/22 10:26 ESR 7 mm/hr (0-10) 12/09/22 10:26 Sodium 126 mmol/L (136-145) L 12/09/22 18:00 Potassium 4.0 mmol/L (3.5-5.1) 12/09/22 10:26 Chloride 84 mmol/L (98-107) L 12/09/22 10:26 Carbon Dioxide 31 mmol/L (22-29) H 12/09/22 10:26 Anion Gap 13.0 (5-19) 12/09/22 10:26 BUN 4 mg/dL (8-23) L 12/09/22 10:26 Creatinine 0.4 mg/dL (0.7-1.2) L 12/09/22 10:26 GFR Calculation 215.9 mL/min (90-130) H 12/09/22 10:26 Glucose 106 mg/dL (65-115) 12/09/22 10:26 Calculated Osmolality 255 mOsm/kg (285-295) L 12/09/22 10:26 Calcium 8.3 mg/dL (8.5-10.5) L 12/09/22 10:26 Magnesium 1.2 mg/dL (1.7-2.3) L 12/09/22 10:26 Total Bilirubin 1.0 mg/dL (0.15-1.2) 12/09/22 10:26 GGT 622 U/L (8-61) H 12/09/22 10:26 AST 158 U/L (0-40) H 12/09/22 10:26 ALT 111 U/L (0-41) H 12/09/22 10:26 Alkaline Phosphatase 122 U/L (40-130) 12/09/22 10:26 Ammonia 33 umol/L (16-60) 12/09/22 17:03 C-Reactive Protein 12.4 mg/L (0.0-4.9) H 12/09/22 10:26 Total Protein 6.6 g/dL (6.6-8.7) 12/09/22 10:26 Albumin 4.2 g/dL (3.5-5.2) 12/09/22 10: Globulin 2.4 g/dL (1.3-4.6) 12/09/22 10:26 Lipase 100 U/L (13-60) H 12/09/22 10: Procalcitonin 0.22 ng/mL (0-0.5) 12/09/22 10:26 Urine Color Yellow (Yellow) 12/09/22 12:40 Urine Appearance Sl hazy (CLEAR) A 12/09/22 12:40 Urine pH 9 (5-7) H 12/09/22 12:40 Ur Specific [place] 1.015 (1.005-1.030) 12/09/22 12:40 Urine Protein 1+ (Negative) H 12/09/22 12:40 Urine Glucose (UA) Norm (Normal) 12/09/22 12:40 Urine Ketones 2+ (Negative) H 12/09/22 12:40 Urine Blood Neg (Negative) 12/09/22 12:40 Urine Nitrate Negative (Negative) 12/09/22 12:40 Urine Bilirubin 1+ (Negative) H 12/09/22 12:40 Urine Urobilinogen 4+ mg/dL (Negative) H 12/09/22 12:40 Ur Leukocyte Esterase Negative (Negative) 12/09/22 12:40 Urine RBC 0-4 /hpf (0-2) H 12/09/22 12:40 Urine WBC 0-4 /hpf (0-5) H 12/09/22 12:40 Ur Squamous Epith Cells 0-4 /hpf (0-5) H 12/09/22 12:40 Amorphous Sediment Not Reportable 12/09/22 12:40 Urine Bacteria None /hpf (NONE) 12/09/22 12:40 Urine Mucus 3+ /hpf 12/09/22 12:40 Nasal Influ A H1 2009 PCR Not detected (NOT DETECT) 12/09/22 16:12 Urine Opiates Screen Negative ng/mL (Negative) 12/09/22 12:40 Ur Barbiturates Screen Negative ng/mL (Negative) 12/09/22 12:40 Ur Phencyclidine Scrn Negative ng/mL (Negative) 12/09/22 12:40 Ur Amphetamines Screen Negative ng/mL (Negative) 12/09/22 12:40 U Benzodiazepines Scrn Negative ng/mL (Negative) 12/09/22 12:40 Urine Cocaine Screen Negative ng/mL (Negative) 12/09/22 12:40 U Marijuana (THC) Screen Positive ng/mL (Negative) H 12/09/22 12:40 Ethyl Alcohol < 10 mg/dL (0-10) 12/09/22 10:26 Adenovirus (PCR) Not detected (NOT DETECT) 12/09/22 16:12 C. pneumoniae DNA (PCR) Not detected (NOT DETECT) 12/09/22 16:12 Coronavirus 229E (PCR) Not detected (NOT DETECT) 12/09/22 16:12 Human Metapneumovir PCR Not detected (NOT DETECT) 12/09/22 16:12 Influenza A (H1) PCR Not detected (NOT DETECT) 12/09/22 16:12 Influenza A (H3) PCR Not detected (NOT DETECT) 12/09/22 16:12 Influenza Type A Ag negative (Negative) 12/09/22 11:40 Influenza Type A (PCR) Not detected (NOT DETECT) 12/09/22 16:12 Influenza Type B Ag negative (Negative) 12/09/22 11:40 Influenza Type B (PCR) Not detected (NOT DETECT) 12/09/22 16:12 M. pneumoniae (PCR) Not detected (NOT DETECT) 12/09/22 16:12 Parainfluenza 1 (PCR) Not detected (NOT DETECT) 12/09/22 16:12 Parainfluenza 2 (PCR) Not detected (NOT DETECT) 12/09/22 16:12 Parainfluenza 3 (PCR) Not detected (NOT DETECT) 12/09/22 16:12 Parainfluenza 4 (PCR) Not detected (NOT DETECT) 12/09/22 16:12 RSV Type A (PCR) Not detected (NOT DETECT) 12/09/22 16:12 RSV Type B (PCR) Not detected (NOT DETECT) 12/09/22 16:12 Entero/Rhino (PCR) Not detected (NOT DETECT) 12/09/22 16:12 SARS-CoV-2 (PCR) Not detected (NOT DETECT) 12/09/22 16:12 SARS-CoV-2 Ag (Rapid) negative (Negative) 12/09/22 11:40 EKG Data EKG 1: I personally reviewed and interpreted this EKG as follows: EKG interpretation date: 12/09/22 EKG interpretation time: 10:10 Prior EKG tracings: not available for review Interpretation: EKG shows ventricular rate 103 bpm, [place] interval 164, QRS duration 98, QTc of 389, sinus tachycardia, possible left atrial lodgment, possible left ventricular hypertrophy, tall T waves suggestive of hyperkalemia. Discharge Plan Discharge Patient Disposition: Admitted As Inpatient Admit Provider: Mati Talavera Clinical Impression: Thrombocytopenia, Altered mental status, Hyponatremia Condition: Stable Coding Level of Care Code ED Deputy Sheriff K9 Handler for Sunshine Cardenas
--- NOTE | 2022-12-09 10:08 | ECG_ITS ---
[facility] Test Date: 2022-12-09 Pat Name: Anthony Vázquez Department: Room: Gender: Male Certified Adaptive Physical Educator: : 1955 Requested By: Timoteo Ramos Order Number: [id number] Ad MD: Xiomara Ashford M.D. Measurements Intervals [place] Rate: 103 P: 70 [place]: 164 QRS: 75 QRSD: 98 T: 72 QT: 329 QTc: 431 Interpretive Statements SINUS TACHYCARDIA POSSIBLE LEFT ATRIAL ENLARGEMENT [-0.1mV P-WAVE IN V1/V2] POSSIBLE LEFT VENTRICULAR HYPERTROPHY [VOLTAGE CRITERIA PLUS LAE OR QRS WIDENING] TALL T-WAVES, SUGGESTS HYPERKALEMIA Compared to ECG 12/05/2022 21:16:43 Sinus rhythm no longer present Electronically Signed On 12-09-2022 23:57:05 CDT by Xiomara Ashford M.D. [email or web address]
[2022-12-09 10:35] LABS: Basophils % 0.3 %; Eosinophils % 0.7 %; Hematocrit 37.6 % (37-53); Lymphocytes # 0.4 10^3/uL (0.8-4.8); Lymphocytes % 7.4 %; Mean Corpuscular HGB Conc 35.9 g/dL (30-55); Mean Corpuscular Hemoglobin 33.7 pg (27-33); Mean Corpuscular Volume 93.8 fl (82-101); Mean Platelet Volume 12.3 fL (7.4-10.4); Monocytes # 0.6 10^3/uL (0.2-0.9); Monocytes % 10.3 %; Neutrophils # 4.79 10^3/uL (1.8-7.7); Neutrophils % 80.8 %; Nucleated Red Blood Cells % 0 %; Platelet Count 56 10^3/cmm (157-399); Red Blood Count 4.01 10^6/uL (3.85-5.65); Red Cell Distribution Width 13.1 % (12.1-15.1); White Blood Count 5.93 10^3/uL (3.29-11.43)
[2022-12-09 10:50] LABS: Alanine Aminotransferase 111 U/L (0-41); Albumin Level 4.2 g/dL (3.5-5.2); Alkaline Phosphatase 122 U/L (40-130); Aspartate Amino Transferase 158 U/L (0-40); Blood Urea Nitrogen 4 mg/dL (8-23); Calcium 8.3 mg/dL (8.5-10.5); Carbon Dioxide 31 mmol/L (22-29); Chloride 84 mmol/L (98-107); Globulin 2.4 g/dL (1.3-4.6); Glomerular Filtration Rate 215.9 mL/min (90-130); Glucose 106 mg/dL (65-115); Magnesium 1.2 mg/dL (1.7-2.3); Osmolality Calculated 255 mOsm/kg (285-295); Sodium 124 mmol/L (136-145); Total Protein 6.6 g/dL (6.6-8.7)
[2022-12-09 10:51] LABS: Alcohol Level < 10 mg/dL (0-10)
[2022-12-09] MEDS: magnesium sulfate premix 2 GM/50 ML PIGGYBACK IV (11:46)
[2022-12-09 13:10] LABS: Amphetamines Screen Urine Negative (Negative); Barbiturates Screen Urine Negative (Negative); Benzodiazepines Screen Urine Negative (Negative); Cocaine Screen Urine Negative (Negative); Opiate Screen Urine Negative (Negative); PCP Screen Urine Negative (Negative); THC Screen Urine Positive (Negative)
[2022-12-09 13:12] LABS: Urine Color Yellow (Yellow)
[2022-12-09 13:13] LABS: Add Urine Microscopic? YES; Bilirubin Urine 1+ (Negative); Blood Urine Neg (Negative); Glucose Urine UA Norm (Normal); Ketones Urine 2+ (Negative); Leukocyte Esterase Urine Negative (Negative); Nitrate Urine Negative (Negative); Protein Urine 1+ (Negative); Specific Gravity, Urine 1.015 (1.005-1.030); Urine Appearance SL Hazy (CLEAR); Urobilinogen Urine 4+ mg/dL (Negative); pH Urine 9 (5-7)
[2022-12-09 13:14] LABS: Add Urine Culture? No; Mucus Urine 3+ /hpf; RBC Urine 0-4 /hpf (0-2); Squamous Epithelial Cell Urine 0-4 /hpf (0-5); WBC Urine 0-4 /hpf (0-5)
[2022-12-09 13:19] LABS: Influenza A by IFA negative (Negative); Influenza B by IFA negative (Negative); SARS Covid-2 Antigen negative (Negative)
--- NOTE | 2022-12-09 13:23 | CT_ITS ---
WS: [id number] CT HEAD NONCONTRAST HISTORY: ams TECHNIQUE: Contiguous axial imaging performed through the brain in 2.5 mm imaging. Bone and soft tiss ue windows. Sagittal and coronal reformats reviewed. All CT scans at [facility] use at least one of these dose optimization techniques: automated exposure control; mA and/or kV adjustment per pa tient size (includes targeted exams where dose is matched to clinical indication); or iterative recon struction. DLP: 1223.95 mGy.cm COMPARISON: 12/05/2022 No acute intracranial hemorrhage, midline shift or mass effect. Mild cerebral and cerebellar atrophy. No mass effect or hemorrhage. Very minimal small vessel ischemi c type changes. Ventricles: Normal size with no hydrocephalus. No inferior displacement of the cerebellar tonsils. Paranasal sinuses: As visualized are clear. Mastoid air cells: Well pneumatized. Calvarium and scalp: Skull is intact with no soft tissue edema or swelling. IMPRESSION: 1. No acute intracranial hemorrhage or edema. 2. Mild cerebral and cerebellar atrophy and mild small vessel ischemic changes. No interval change si nce 12/05/2022.
--- NOTE | 2022-12-09 15:56 | CTR_ITS ---
PROCEDURE INFORMATION: Exam: CT Chest Without Contrast; Diagnostic Exam date and time: 12/09/2022 4:14 PM Age: 67 years old Clinical indication: Fever, AMS TECHNIQUE: Imaging protocol: Diagnostic computed tomography of the chest without contrast. REPORTING DATA: Count of CT and Cardiac NM exams in prior 12 months: This patient has received 2 known CTs and 0 known cardiac nuclear medicine studies in the 12 months prior to the current study. COMPARISON: CR XR chest 1V portable [id number] 12/09/2022 10:15 AM RADIATION DOSE METRICS: Total DLP (mGy-cm): 500.06 FINDINGS: Lungs: There is moderate paraseptal and centrilobular emphysema with several emphysematous blebs in the apical regions, right larger than left. There is some subsegmental atelectasis at the lung bases. Pleural spaces: Unremarkable. No pneumothorax. No pleural effusion. Heart: Unremarkable. No cardiomegaly. No pericardial effusion. Coronary arteries: There is mild atherosclerotic calcification of the coronary arteries. Mediastinal space: There is no evidence of mediastinal fluid, masses, or gas. Lymph nodes: There is no evidence of lymphadenopathy. Vasculature: There is moderate ectasia of the ascending thoracic aorta with a diameter 4.4 cm. Diaphragm: There is a small hiatal hernia. Bones/joints: The thoracic spine demonstrates moderate degenerative changes at multiple levels. Soft tissues: Unremarkable. COMMENTS: In the absence of a history or active diagnosis of lung cancer, it is recommended that this patient with emphysema be evaluated for enrollment in a low dose CT lung cancer screening program. PROCEDURE INFORMATION: Exam: CT Abdomen And Pelvis Without Contrast Exam date and time: 12/09/2022 4:14 PM Age: 67 years old Clinical indication: Fever, AMS TECHNIQUE: Imaging protocol: Computed tomography of the abdomen and pelvis without contrast. REPORTING DATA: Count of CT and Cardiac NM exams in prior 12 months: This patient has received 2 known CTs and 0 known cardiac nuclear medicine studies in the 12 months prior to the current study. COMPARISON: CT abdomen pelvis w con* [id number] 12/05/2022 10:42 PM RADIATION DOSE METRICS: Total DLP (mGy-cm): 500.06 FINDINGS: Limitations: The absence of intravenous contrast lessens the sensitivity of this study for solid organ abnormalities. Study somewhat limited due to streak artifact created by the patient being scanned with the arms at the sides. Liver: Liver shows diffusely decreased density in keeping with fatty change. There is no focal abnormality within the liver. There is moderate enlargement of the liver. The liver is 23 cm in height. Gallbladder and bile ducts: The gallbladder is normal. Pancreas: The pancreas is normal. Spleen: The spleen is normal. Adrenal glands: The adrenal glands are normal. Kidneys and ureters: The kidneys are normal. There is no evidence of hydronephrosis. There is no evidence of renal or ureteral calcifications. Stomach and bowel: There is no evidence of intestinal obstruction. Appendix: Not identified Intraperitoneal space: There is no evidence of free intraperitoneal fluid. Vasculature: The aorta demonstrates moderate atherosclerotic calcification. There is no evidence of an abdominal aortic aneurysm. Lymph nodes: There is no evidence of lymphadenopathy. Urinary bladder: Unremarkable as visualized. Reproductive: Unremarkable as visualized. Bones/joints: The lumbar spine demonstrates moderate degenerative changes at multiple levels. Soft tissues: There is small right inguinal hernia containing only fat. There is moderate sized left inguinal hernia containing fat and a portion of the descending colon without evidence of incarceration or obstruction. CT/[place] [id number] IMPRESSION: 1. Mild aneurysm of the ascending thoracic aorta (4.4 cm 2. Pulmonary emphysema. 3. Mild basilar atelectasis. IMPRESSION: 1. Fatty liver 2. Left inguinal hernia 3. No acute finding.
[2022-12-09 16:35] LABS: Gamma Glutamyl Transferase 622 U/L (8-61)
[2022-12-09 16:36] LABS: C Reactive Protein 12.4 mg/L (0.0-4.9); Lipase 100 U/L (13-60)
[2022-12-09 16:43] LABS: Procalcitonin 0.22 ng/mL (0-0.5)
[2022-12-09 17:07] LABS: Erythrocyte Sedimentation Rate 7 mm/hr (0-10)
[2022-12-09 17:27] LABS: Ammonia 33 umol/L (16-60)
--- NOTE | 2022-12-09 17:54 | P.HP_ITS ---
Providers/Chief Complaint Primary Care Provider: Yao Mckeon MD Chief Complaint: Decreased responsiveness History of Present Illness Anthony Vázquez Jr is a 67 year old male with no significant past medical history, who is a smoker, history of alcoholism, who presents to [facility] due to altered mental status, nausea, vomiting. Patient tells me that he does not know why he is here in the hospital, his son brought him into the hospital because he was having nausea, vomiting, last meal was last night, in which he ate chicken dumplings, did not have breakfast this morning due to nausea vomiting. Denies any bloody or black stools, denies any hematemesis. His last drink was alcohol level was Thursday morning in which she had a couple shots of whiskey. Denies any IV drug use. Does report smoking. Denies sanna chely use. Denies any neck pain, no neck stiffness, no headache, blurry vision. He does r report appetite over the last 24 hours. No specific abdominal pain, no diarrhea, no sick contacts, no recent travel. Denies a cardiovascular history. No history of strokes. No history of diabetes. No history of liver issues. Patient was here in the emergency room on the but alcohol level was 416, he is currently alert to person, to place, not to time, he can follow commands, his mentation is a bit delayed, no facial droop no slurring of her words, no focal weakness Review of Systems Const: Denies: fever(s), chills, body aches, fatigue or malaise Eyes: Denies: change in vision ENMT: Denies: throat pain Card: Denies: chest pain Resp: Denies: dyspnea GI: Reports: abdominal pain, nausea and vomiting : Denies: flank pain or difficulty urinating Musc: Denies: neck pain or back pain Skin/Breast: Denies: rash Neuro: Denies: headache(s), numbness in extremities, weakness in extremities, sensory changes or dizziness Endo: Denies: polyuria or polydipsia Medications/Allergies Home Medications Medication Instructions Recorded Confirmed Last Taken Type No Known Home Medications 12/09/22 12/09/22 Unknown History Allergies Allergy/AdvReac Type Severity Reaction Status Date / Time No Known Drug Allergies Allergy Unresponsiv Verified 12/09/22 09:54 e PFSH Acute PFSH: Medical History (Updated 12/09/22 @ 17:59 by Mati Talavera MD) History of alcoholism Hyponatremia Surgical History (Updated 12/09/22 @ 17:54 by Mati Talavera MD) History of chest tube placement Family History (Updated 12/09/22 @ 17:55 by Mati Talavera MD) Mother Lung cancer Social History (Updated 12/09/22 @ 17:58 by Mati Talavera MD) Smoking and tobacco status: current every day smoker Alcohol intake: current Alcohol intake frequency: 3 or more drinks per day Substance/Drug Use: never Vitals/I&O/Wt Last Vital Signs Temp 99.6 F 12/09/22 13:37 Pulse 76 12/09/22 16:51 Resp 14 12/09/22 16:51 BP 105/69 12/09/22 16:51 Pulse Ox 95 12/09/22 16:51 O2 Del Method Room Air 12/09/22 12:44 12/09/22 12/09/22 12/09/22 06:59 14:59 22:59 Intake Total 50 / 50 Balance 50 / 50 Weight last 48 hrs Weight 63.503 kg Physical Exam Const: COMMON NORMALS: no acute distress EXAM LIMITATIONS: altered mental status GENERAL APPEARANCE: cooperative ORIENTATION/CONSCIOUSNESS: Yes awake, Yes oriented to person and Yes oriented to place; not oriented to time OTHER: Muscle wasting, has bilateral temporal muscle wasting, bilateral peripheral extremity shoulders, arms, bilateral thighs and calves muscle wasting HENMT: COMMON NORMALS: normocephalic and Normal external nose present HEAD & SCALP: normocephalic FACE & SINUS: normal facial exam NOSE: Normal external nose present Eye: COMMON NORMALS: Equal, round and reactive pupils present, EOMs intact bilaterally, conjunctivae normal and no scleral icterus CONJUNCTIVA: Yes conjunctivae normal PUPIL: Yes Equal, round and reactive pupils present Neck/C-Spine: COMMON NORMALS: full ROM, no lymphadenopathy, no meningeal signs, no JVD, Thyroid normal and No carotid bruits THYROID: Thyroid normal Lymph: LYMPHATIC: no lymphadenopathy noted Chest: COMMONS NORMALS: normal inspection of the chest Resp: COMMON NORMALS: normal respiratory effort, No retractions, No use of accessory muscles and clear to auscultation bilaterally AUSCULTATION: clear to auscultation bilaterally Cardio: COMMON NORMALS: regular rate, regular rhythm, S1 normal heart sound present, S2 normal heart sound present, No murmurs present (Cardio) and Peripheral pulses 2+ throughout RATE: regular rate RHYTHM: regular rhythm HEART SOUNDS: S1 normal heart sound present and S2 normal heart sound present PERIPHERAL PULSES: Peripheral pulses 2+ throughout GI: COMMON NORMALS: Normal to inspection, nondistended, normoactive bowel sounds present and Soft to palpation OTHER: Has diffuse abdominal tenderness Liver palpated : BLADDER/KIDNEY EXAM: Yes no CVA tenderness Back/Pelvis: COMMON NORMALS: no CVA tenderness Extremity: COMMON NORMALS: normal to inspection, full ROM, capillary refill normal, no calf tenderness and no pedal edema Neuro: COMMON NORMALS: CN's II-XII intact bilaterally, moves all extremities, no focal motor deficits and no sensory deficits noted MENINGEAL SIGNS: Yes no meningeal signs Psych: COMMON NORMALS: Normal thought process present, cooperative and speech normal SPEECH: Yes normal speech THOUGHT PROCESS: Normal thought process present Skin: COMMON NORMALS: turgor normal and no jaundice GENERAL SKIN EXAM: turgor normal Data 12/09/22 10:26 12/09/22 10:26 Micro: Microbiology 12/09/22 11:09 Blood Culture - Preliminary Blood SPECIMEN COLLECTED 12/09/22 11:06 Blood Culture - Preliminary Blood SPECIMEN COLLECTED A&P Assessment and plan (1) Alcohol withdrawal: (2) Wernickes encephalopathy: (3) Hyponatremia: (4) Physical deconditioning: (5) Protein calorie malnutrition: (6) Muscle wasting: (7) Hypomagnesemia: (8) Transaminitis: Plan Altered mental status -Etiology unclear -Could be from Warnicke's encephalopathy -Could be from meningitis -Could be from hyponatremia -Neurochecks, aspiration precautions -UA no significant evidence of UTI, chest x-ray no focal pneumonia, moraes CT chest abdomen pelvis no focal findings of infection -No significant ascites, seen on CT scan given his history of alcoholism, no significant evidence of SBP -Follow blood cultures, urine cultures, respiratory viral panel Warnicke's encephalopathy -History of alcoholism -Recent ER visit for alcoholism, -CIWA protocol, thiamine, B12, folic acid, IV fluids Hyponatremia -Has chronic hyponatremia -Likely beers Poto boaz -Symptomatic could be from dehydration poor appetite, nausea, vomiting, -IV fluids -Neurochecks -Low serum serum sodium every 4 hours Hypomagnesemia -We will replace in the emergency room Meningitis -Has had a fever, 100.9, confusion, Kernig sign negative, Brudzinski sign negative -We will empirically cover with vancomycin, Rocephin -Decadron -Lumbar puncture in the a.m. Transaminitis likely stated alcoholism thrombocytopenia likely sec to Alcoholism Physical deconditioning, protein calorie malnutrition, muscle wasting, speech therapy eval, dietary eval, PT OT Full code Scd DVT prophylaxis, Lovenox on hold and plan for lumbar puncture Attestations Medical Necessity Statement*: Patient requires hospitalization, for altered mental status, hypomagnesemia, hyponatremia, inpatient, greater than 2 minutes, possible meningitis, Warnicke's encephalopathy Diagnoses Alcohol withdrawal F10.939 Wernickes encephalopathy E51.2 Hyponatremia E87.1 Physical deconditioning R53.81 Protein calorie malnutrition E46 Muscle wasting M62.50 Hypomagnesemia E83.42 Transaminitis R74.01
[2022-12-09 18:06] LABS: Adenovirus Not Detected (NOT DETECT); Chlamydia Pneumoniae Not Detected (NOT DETECT); Coronavirus 229E,HKU1,NL63,OC4 Not Detected (NOT DETECT); Human Metapneumovirus Not Detected (NOT DETECT); Human Rhinovirus/Enterovirus Not Detected (NOT DETECT); Influenza A Not Detected (NOT DETECT); Influenza A H1 Not Detected (NOT DETECT); Influenza A H1-2009 Not Detected (NOT DETECT); Influenza A H3 Not Detected (NOT DETECT); Influenza B Not Detected (NOT DETECT); Mycoplasma Pneumoniae Not Detected (NOT DETECT); Parainfluenza Virus Type 1 Not Detected (NOT DETECT); Parainfluenza Virus Type 2 Not Detected (NOT DETECT); Parainfluenza Virus Type 3 Not Detected (NOT DETECT); Parainfluenza Virus Type 4 Not Detected (NOT DETECT); Respiratory Syncytial Virus A Not Detected (NOT DETECT); Respiratory Syncytial Virus B Not Detected (NOT DETECT); SARS-COV-2 Not Detected (NOT DETECT)
[2022-12-09 18:31] LABS: Sodium 126 mmol/L (136-145)
[2022-12-09 18:58] LABS: LAB Peripheral Smear Sent for Review
[2022-12-09 21:18] LABS: Chol HDL Ratio 1.67 mg/dL (1.0-5.00); Cholesterol 182 mg/dL (0-200); HDL Cholesterol 109 mg/dL (60-100); LDL Cholesterol Calculated 59 mg/dL (50-129); LDL HDL Ratio 0.54 RATIO (0.00-3.22); Triglycerides 68 mg/dL (0-150)
[2022-12-09] MEDS: cefTRIAXone 1,000 MG in sodium chloride 0.9% (plus) 50 ML 100 MG IV (21:27)
[2022-12-09] MEDS: dexamethasone 4 mg/mL INJ 9 MG IVP (21:28)
[2022-12-09] MEDS: pantoprazole 40 mg SDV IVP (21:28)
[2022-12-09] MEDS: sodium chloride 0.9% 1,000 ML 75 ML IV (21:28)
[2022-12-09 21:31] LABS: Estmated Average Glucose 105; Hemoglobin A1C 5.3 % (4.0-6.0)
[2022-12-09 21:37] LABS: Hepatitis A Antibody IgM Non-Reactive (Nonreactive); Hepatitis B Core IgM Non-Reactive (Nonreactive); Hepatitis B Surface Antigen Non-Reactive (Nonreactive); Hepatitis C Virus Antibody Non-Reactive (Nonreactive)
[2022-12-09 21:38] LABS: HIV 1 & 2 Antibody Non-Reactive (Non-Reactiv); HIV 1 & 2 Antigen Non-Reactive (Non-Reactiv)
--- NOTE | 2022-12-09 22:03 | PC.PHAR ---
Pharmacokinetic dosing service Date: 12/09/22 Time: 2202 Objective: Patient: Anthony Vázquez Floor: [address]2 Age: 67 yo Serum creatinine: 0.4 mg/dL Height: 68.0 Inches Weight (kg): 63.503 Diagnosis: Relevant medical/social history: Cultures and sensitivities: Other labs: Assessment: IBW (kg): 68.40 Dosing wt(kg): 63.503 Estimated Creatinine clearance (ml/min): 130 Clearance limited to 130 ml/min to reduce risk of overdosing. CRCL method: Cockcroft and Gault using ibw(default). Drug selected: Vancomycin Loading dose (mg): 0 Vd (liters): 57.2 (factor used: 0.9 L/kg) Kyrie (hr-1): 0.112 Half life (hrs): 6.19 Recommended dose: 1000 mg Interval: 8 hrs Infusion time (hrs): 1.5 Predicted peak (mcg/mL): 27.2 Predicted trough (mcg/mL): 13.13 Total body weight is being used for vancomycin dosing. Renal function is stable [ ] /unstable [ ] Recommendations: Give Vancomycin 1000 mg q 8 hrs with an expected Cpeak of 27.2 mcg/ml and an expected Ctrough of 13.13 mcg/ml Renal dosing of other antibiotics (review renal dosing of other medications and list guidelines here): Thank you for the consult, will continue to follow. Signature: Nery Hunt [facility]
[2022-12-09] MEDS: vancomycin 1,000 MG in sodium chloride 0.9% 250 ML 250 MG IV (22:57)
[2022-12-09 23:53] LABS: Vitamin B12 741 pg/mL (232-1245)
[2022-12-10] VITALS (7 sets, daily range): BP systolic 128–139; BP diastolic 70–84; PULSE 80–100; RESP 16–20; TEMP 35.9–37.1; O2SAT 95–96
[2022-12-10 00:01] LABS: Folate Level > 20.0 ng/mL (4.5-32.2)
[2022-12-10 01:10] LABS: Sodium 128 mmol/L (136-145)
[2022-12-10] MEDS: dexamethasone 4 mg/mL INJ 9 MG IVP ×4 (02:32→20:13)
[2022-12-10] MEDS: vancomycin 1,000 MG in sodium chloride 0.9% 250 ML 250 MG IV ×2 (05:19→14:54)
[2022-12-10 05:38] LABS: Basophils % 0.2 %; Hematocrit 36.3 % (37-53); Lymphocytes # 0.3 10^3/uL (0.8-4.8); Lymphocytes % 5.3 %; Mean Corpuscular Hemoglobin 33.9 pg (27-33); Mean Corpuscular Volume 96.8 fl (82-101); Mean Platelet Volume 12.3 fL (7.4-10.4); Monocytes # 0.3 10^3/uL (0.2-0.9); Monocytes % 6.3 %; Neutrophils # 4.16 10^3/uL (1.8-7.7); Neutrophils % 87.8 %; Nucleated Red Blood Cells % 0 %; Platelet Count 69 10^3/cmm (157-399); Red Blood Count 3.75 10^6/uL (3.85-5.65); Red Cell Distribution Width 13.2 % (12.1-15.1); White Blood Count 4.74 10^3/uL (3.29-11.43)
[2022-12-10 05:50] LABS: Alanine Aminotransferase 86 U/L (0-41); Albumin Level 3.6 g/dL (3.5-5.2); Alkaline Phosphatase 103 U/L (40-130); Anion Gap 22.3 (5-19); Aspartate Amino Transferase 109 U/L (0-40); Blood Urea Nitrogen 11 mg/dL (8-23); Calcium 8.1 mg/dL (8.5-10.5); Carbon Dioxide 22 mmol/L (22-29); Chloride 87 mmol/L (98-107); Globulin 2.3 g/dL (1.3-4.6); Glomerular Filtration Rate 113.2 mL/min (90-130); Glucose 108 mg/dL (65-115); Magnesium 1.3 mg/dL (1.7-2.3); Osmolality Calculated 266 mOsm/kg (285-295); Phosphorus 3.2 mg/dL (2.5-4.5); Potassium 3.3 mmol/L (3.5-5.1); Sodium 128 mmol/L (136-145); Total Bilirubin 0.9 mg/dL (0.15-1.2); Total Protein 5.9 g/dL (6.6-8.7)
[2022-12-10] MEDS: LORazepam 2 mg/mL INJ 1 mL IVP ×5 (05:59→23:28)
[2022-12-10 08:23] LABS: Sodium 130 mmol/L (136-145)
[2022-12-10] MEDS: magnesium sulfate premix 4 GM/100 ML PREMIX IV (08:48)
[2022-12-10] MEDS: sodium chloride 0.9% 1,000 ML 75 ML IV (10:56)
[2022-12-10] MEDS: cyanocobalamin 1,000 mcg Tablet 1000 MCG PO (10:58)
[2022-12-10] MEDS: folic acid 1 mg Tablet PO (10:59)
[2022-12-10] MEDS: multivitamin therapeutic Tablet 1 TAB PO (10:59)
[2022-12-10] MEDS: thiamine 100 mg Tablet PO (10:59)
[2022-12-10 12:57] LABS: Sodium 130 mmol/L (136-145)
--- NOTE | 2022-12-10 13:39 | PC.OT ---
PATIENT IS SCHEDULED FOR LUMBAR PUNCTURE TODAY; HOLD OT UNTIL TOMORROW.
--- NOTE | 2022-12-10 14:27 | PM.PN ---
Subjective Subjective: Patient was seen this morning, he had episodes of agitation throughout the night, has received Ativan, he does awaken to his name, but falls asleep, afebrile overnight, normotensive, patient's [id number] at bedside, I spoke to patient's son over the phone, discussed his altered mental status, my concern for underlying meningitis, awaiting lumbar puncture, but I think likely the underlying cause of his falls, deconditioning, his forgetfulness is likely Warnicke's encephalopathy, given his history of alcoholism Vitals/I&O/Wt Last Vital Signs Temp 96.6 F L 12/10/22 11:02 Pulse 83 12/10/22 11:02 Resp 18 12/10/22 11:02 BP 128/82 12/10/22 11:02 Pulse Ox 95 12/10/22 11:02 O2 Del Method Nasal Cannula 12/10/22 08:00 12/09/22 12/10/22 12/10/22 22:59 06:59 14:59 Intake Total 50 / 100 740 / 840 1340 / 1340 Balance 50 / 100 740 / 840 1340 / 1340 Weight last 48 hrs Weight 63.503 kg Physical Exam Const: COMMON NORMALS: no acute distress ORIENTATION/CONSCIOUSNESS: Yes awake, Yes oriented to person and Yes confused; not oriented to place and not oriented to time Eye: COMMON NORMALS: Equal, round and reactive pupils present and EOMs intact bilaterally PUPIL: Yes Equal, round and reactive pupils present Resp: COMMON NORMALS: normal respiratory effort, No retractions, No use of accessory muscles and clear to auscultation bilaterally AUSCULTATION: clear to auscultation bilaterally Cardio: COMMON NORMALS: regular rate, regular rhythm, S1 normal heart sound present and S2 normal heart sound present RATE: regular rate RHYTHM: regular rhythm HEART SOUNDS: S1 normal heart sound present and S2 normal heart sound present GI: COMMON NORMALS: Normal to inspection, nondistended, normoactive bowel sounds present and non-tender Extremity: COMMON NORMALS: no pedal edema Neuro: SENSORIUM/ORIENTATION: Yes oriented to person, No oriented to place and No oriented to time Data 12/10/22 04:38 12/10/22 12:07 Micro: Microbiology 12/09/22 11:06 Blood Culture - Preliminary Blood NEGATIVE TO DATE 12/09/22 11:09 Blood Culture - Preliminary Blood NEGATIVE TO DATE A&P Assessment and plan (1) Alcohol withdrawal: (2) Wernickes encephalopathy: (3) Hyponatremia: (4) Physical deconditioning: (5) Protein calorie malnutrition: (6) Muscle wasting: (7) Hypomagnesemia: (8) Transaminitis: Plan Altered mental status -Etiology likely multifactorial -likely has Warnicke's encephalopathy -Could be from meningitis -Could be from hyponatremia -Neurochecks, aspiration precautions -UA no significant evidence of UTI, chest x-ray no focal pneumonia, moraes CT chest abdomen pelvis no focal findings of infection -No significant ascites, seen on CT scan given his history of alcoholism, no significant evidence of SBP -Follow blood cultures, urine cultures, respiratory viral panel Warnicke's encephalopathy -History of alcoholism -Recent ER visit for alcoholism, -CIWA protocol, thiamine, B12, folic acid, IV fluids Hyponatremia, improving 130 -Has chronic hyponatremia -Likely beers Poto boaz -Symptomatic could be from dehydration poor appetite, nausea, vomiting, -Hold IV fluids -Neurochecks -Low serum serum sodium every 4 hours Hypomagnesemia -We will replace magnesium today Meningitis -Has had a fever, 100.9, confusion, Kernig sign negative, Brudzinski sign negative -We will empirically cover with vancomycin, Rocephin -Decadron -Lumbar puncture to be chlamydia sometime today Transaminitis likely stated alcoholism thrombocytopenia likely sec to Alcoholism Physical deconditioning, protein calorie malnutrition, muscle wasting, speech therapy eval, dietary eval, PT OT Full code Scd DVT prophylaxis, Lovenox on hold and plan for lumbar puncture Attestations Medical Necessity Statement*: Patient requires hospitalization for altered mental status, likely Warnicke's encephalopathy, concerns for meningitis, awaiting lumbar puncture, on IV antibiotic treatment, receiving treatment for Warnicke's encephalopathy Diagnoses Alcohol withdrawal F10.939 Wernickes encephalopathy E51.2 Hyponatremia E87.1 Physical deconditioning R53.81 Protein calorie malnutrition E46 Muscle wasting M62.50 Hypomagnesemia E83.42 Transaminitis R74.01
[2022-12-10] MEDS: LORazepam 2 mg/mL INJ 1 mL 1 MG IVP (15:42)
--- NOTE | 2022-12-10 15:44 | PC.SLP ---
Pt not alert enough/able to maintain alertness to participate with [employer]ER HARDBOARD at this time. GRINDER HARDBOARD will attempt at another time.
--- NOTE | 2022-12-10 17:48 | FL_ITS ---
WS: [id number] LUMBAR PUNCTURE CLINICAL INFORMATION: ams COMPARISON: None. TECHNIQUE: Informed consent: The procedure and its potential risk and complications were discussed with the christopher ent. Verbal and written consent was obtained. Timeout: A timeout was performed to confirm correct patient, procedure, and site. Consent obtained fr om patient's son prior to procedure. Patient was prepped and draped in the usual sterile fashion. Lidocaine 1% was used for local anesthes ia. Utilizing fluoroscopic guidance, a 3.5 inch 22-gauge spinal needle was advanced into the subarach noid space at L2-L3 via left oblique sublaminar approach. Free flow of clear CSF was obtained. 8-10 cc of clear CSF was collected and sent the lab for further analysis. FLUOROSCOPIC TIME: 2min [id number] # of spot films: 1 IMPRESSION: Fluoroscopically guided lumbar puncture with 8 to 10 cc of clear CSF collected. No immediate complica tions
[2022-12-10 18:33] LABS: Sodium 132 mmol/L (136-145)
[2022-12-10] MEDS: pantoprazole 40 mg SDV IVP (20:13)
[2022-12-10] MEDS: cefTRIAXone 1,000 MG in sodium chloride 0.9% (plus) 50 ML 100 MG IV (20:13)
[2022-12-10 20:29] LABS: Sodium 131 mmol/L (136-145)
[2022-12-10 22:15] LABS: Vancomycin Trough 19.7 ug/mL (10-15)
[2022-12-11] VITALS: BP 122/78; PULSE 80; RESP 18; TEMP 37.1; O2SAT 98
[2022-12-11] MEDS: vancomycin 1,250 MG/250 ML PIGGYBACK 250 MG IV (02:32)
[2022-12-11] MEDS: dexamethasone 4 mg/mL INJ 9 MG IVP (02:39)
[2022-12-11 04:46] VITALS: BP 145/77; PULSE 73; RESP 18; TEMP 37; O2SAT 98
[2022-12-11 05:10] LABS: Basophils % 0.1 %; Hematocrit 36.8 % (37-53); Lymphocytes # 0.5 10^3/uL (0.8-4.8); Lymphocytes % 6.4 %; Mean Corpuscular HGB Conc 35.1 g/dL (30-55); Mean Corpuscular Hemoglobin 33.6 pg (27-33); Mean Corpuscular Volume 95.8 fl (82-101); Mean Platelet Volume 11.3 fL (7.4-10.4); Monocytes # 0.9 10^3/uL (0.2-0.9); Neutrophils # 6.01 10^3/uL (1.8-7.7); Neutrophils % 80.6 %; Nucleated Red Blood Cells % 0 %; Platelet Count 111 10^3/cmm (157-399); Red Blood Count 3.84 10^6/uL (3.85-5.65); Red Cell Distribution Width 13.2 % (12.1-15.1); White Blood Count 7.47 10^3/uL (3.29-11.43)
[2022-12-11 05:35] LABS: Slide Review Slide Review Perform
[2022-12-11 05:36] LABS: Alanine Aminotransferase 66 U/L (0-41); Albumin Level 3.2 g/dL (3.5-5.2); Alkaline Phosphatase 94 U/L (40-130); Anion Gap 21.9 (5-19); Aspartate Amino Transferase 60 U/L (0-40); Blood Urea Nitrogen 19 mg/dL (8-23); Calcium 8.3 mg/dL (8.5-10.5); Carbon Dioxide 21 mmol/L (22-29); Chloride 95 mmol/L (98-107); Globulin 2.5 g/dL (1.3-4.6); Glucose 131 mg/dL (65-115); Osmolality Calculated 282 mOsm/kg (285-295); Phosphorus 3.6 mg/dL (2.5-4.5); Potassium 3.9 mmol/L (3.5-5.1); Sodium 134 mmol/L (136-145); Total Bilirubin 0.8 mg/dL (0.15-1.2); Total Protein 5.7 g/dL (6.6-8.7)
[2022-12-11 07:42] LABS: CSF Mononuclear # 0.001 10^3/uL (50-90); Mononuclear WBC CSF % 100 % (50-90); Polynuclear WBC CSF % 0 % (0-10); White Blood Cell CSF 1 /uL (0-5)
[2022-12-11 07:50] LABS: Appearance CSF CLEAR (CLEAR); Color CSF COLORLESS (COLORLESS)
[2022-12-11 07:52] LABS: Red Blood Cell CSF 0 10^3/uL (0-0)
[2022-12-11 07:53] LABS: Total Protein CSF 57 mg/dL (15-45)
[2022-12-11 08:00] VITALS: BP 160/89; PULSE 86; RESP 18; TEMP 36.6; O2SAT 97
[2022-12-11 08:04] LABS: Glucose CSF 94 mg/dL (40-70)
[2022-12-11] MEDS: thiamine 100 mg Tablet PO (09:31)
[2022-12-11] MEDS: folic acid 1 mg Tablet PO (09:31)
[2022-12-11] MEDS: cyanocobalamin 1,000 mcg Tablet 1000 MCG PO (09:31)
[2022-12-11] MEDS: multivitamin therapeutic Tablet 1 TAB PO (09:31)
[2022-12-11 12:00] VITALS: BP 155/89; PULSE 68; RESP 17; TEMP 36.8; O2SAT 92
[2022-12-11 13:40] LABS: Lyme AB Screen <0.90 index
[2022-12-11 16:00] VITALS: BP 145/89; PULSE 90; RESP 18; TEMP 36.6; O2SAT 98
--- NOTE | 2022-12-11 16:16 | PM.PN ---
Subjective Subjective: Patient was seen this morning, he is sitting up to the side of the bed, working with speech therapy, he is alert to person, to place, not to time, he does have a tremor, still going through slight alcohol withdrawals, denies any headache, blurry vision, no nausea, vomiting, no neck pain, no abdominal pain, Vitals/I&O/Wt Last Vital Signs Temp 98.2 F 12/11/22 12:00 Pulse 68 12/11/22 12:00 Resp 17 12/11/22 12:00 BP 155/89 12/11/22 12:00 Pulse Ox 92 12/11/22 12:00 O2 Del Method Room Air 12/10/22 16:00 12/11/22 12/11/22 12/11/22 06:59 14:59 22:59 Intake Total 250 / 2311.25 800 / 800 Balance 250 / 1861.25 800 / 800 Physical Exam Const: COMMON NORMALS: no acute distress Resp: COMMON NORMALS: normal respiratory effort, No retractions, No use of accessory muscles and clear to auscultation bilaterally AUSCULTATION: clear to auscultation bilaterally Cardio: COMMON NORMALS: regular rate, regular rhythm, S1 normal heart sound present and S2 normal heart sound present RATE: regular rate RHYTHM: regular rhythm HEART SOUNDS: S1 normal heart sound present and S2 normal heart sound present GI: COMMON NORMALS: Normal to inspection, nondistended, normoactive bowel sounds present and non-tender Extremity: COMMON NORMALS: no pedal edema Data 12/11/22 04:40 12/11/22 04:40 Micro: Microbiology 12/09/22 16:50 Gram Stain - Final Cerebrospinal Fluid A&P Assessment and plan (1) Alcohol withdrawal: (2) Wernickes encephalopathy: (3) Hyponatremia: (4) Physical deconditioning: (5) Protein calorie malnutrition: (6) Muscle wasting: (7) Hypomagnesemia: (8) Transaminitis: (9) Alcohol withdrawal: Plan Altered mental status -Etiology likely multifactorial -likely has Warnicke's encephalopathy -Unlikely meningitis -Could be from hyponatremia -Neurochecks, aspiration precautions -UA no significant evidence of UTI, chest x-ray no focal pneumonia, moraes CT chest abdomen pelvis no focal findings of infection -No significant ascites, seen on CT scan given his history of alcoholism, no significant evidence of SBP -Follow blood cultures, urine cultures, respiratory viral panel Warnicke's encephalopathy -History of alcoholism -Recent ER visit for alcoholism, -CIWA protocol, thiamine, B12, folic acid, IV fluids Hyponatremia, improving 134 -Has chronic hyponatremia -Likely beers Poto boaz -Symptomatic could be from dehydration poor appetite, nausea, vomiting, -Hold IV fluids -Neurochecks -Low serum serum sodium every 4 hours Hypomagnesemia -We will replace magnesium today Meningitis -Has had a fever, 100.9, confusion, Kernig sign negative, Brudzinski sign negative -We will empirically cover with vancomycin, Rocephin -Stop Decadron -Status post lumbar puncture ? CSF studies, clear, colorless, 1 WBCs, Gram stain no organisms, no WBCs, -We will await culture, if negative stop antibiotic therapy Currently going through alcohol withdrawal, CIWA protocol Transaminitis likely stated alcoholism thrombocytopenia likely sec to Alcoholism Physical deconditioning, protein calorie malnutrition, muscle wasting, speech therapy eval, dietary eval, PT OT Full code Scd DVT prophylaxis, start Lovenox tonight Attestations Medical Necessity Statement*: Patient requires hospitalization, for acute encephalopathy, likely Warnicke's encephalopathy, hyponatremia, hypomagnesemia, currently going through alcohol withdrawal, CIWA protocol, Diagnoses Alcohol withdrawal F10.939 Wernickes encephalopathy E51.2 Hyponatremia E87.1 Physical deconditioning R53.81 Protein calorie malnutrition E46 Muscle wasting M62.50 Hypomagnesemia E83.42 Transaminitis R74.01
[2022-12-11 20:00] VITALS: BP 153/85; PULSE 94; RESP 16; O2SAT 95
[2022-12-11] MEDS: enoxaparin 40 mg/0.4 mL Syringe SUBCUT (20:50)
[2022-12-11] MEDS: cefTRIAXone 1,000 MG in sodium chloride 0.9% (plus) 50 ML 100 MG IV (20:50)
[2022-12-11] MEDS: pantoprazole 40 mg SDV IVP (20:50)
[2022-12-12] VITALS: BP 148/83; PULSE 86; RESP 16; O2SAT 94
[2022-12-12] MEDS: vancomycin 1,250 MG/250 ML PIGGYBACK 250 MG IV (02:41)
[2022-12-12 03:30] VITALS: BP 169/84; PULSE 66; RESP 16; O2SAT 97
[2022-12-12 04:54] LABS: Basophils % 0.3 %; Eosinophils # 0.2 10^3/uL (0.0-0.8); Eosinophils % 2.5 %; Hematocrit 34.7 % (37-53); Lymphocytes % 16.4 %; Mean Corpuscular HGB Conc 35.7 g/dL (30-55); Mean Corpuscular Hemoglobin 33.3 pg (27-33); Mean Corpuscular Volume 93.3 fl (82-101); Mean Platelet Volume 10.4 fL (7.4-10.4); Monocytes % 16.4 %; Neutrophils # 3.77 10^3/uL (1.8-7.7); Neutrophils % 63.2 %; Nucleated Red Blood Cells % 0 %; Platelet Count 132 10^3/cmm (157-399); Red Blood Count 3.72 10^6/uL (3.85-5.65); Red Cell Distribution Width 12.7 % (12.1-15.1); White Blood Count 5.97 10^3/uL (3.29-11.43)
[2022-12-12 05:16] LABS: Alanine Aminotransferase 63 U/L (0-41); Albumin Level 3.4 g/dL (3.5-5.2); Alkaline Phosphatase 93 U/L (40-130); Anion Gap 12.3 (5-19); Aspartate Amino Transferase 58 U/L (0-40); Blood Urea Nitrogen 16 mg/dL (8-23); Calcium 8.7 mg/dL (8.5-10.5); Carbon Dioxide 28 mmol/L (22-29); Chloride 99 mmol/L (98-107); Globulin 2.3 g/dL (1.3-4.6); Glucose 113 mg/dL (65-115); Magnesium 1.6 mg/dL (1.7-2.3); Osmolality Calculated 284 mOsm/kg (285-295); Phosphorus 2.5 mg/dL (2.5-4.5); Potassium 3.3 mmol/L (3.5-5.1); Sodium 136 mmol/L (136-145); Total Bilirubin 0.8 mg/dL (0.15-1.2); Total Protein 5.7 g/dL (6.6-8.7)
[2022-12-12 07:40] VITALS: BP 176/93; PULSE 78; RESP 17; O2SAT 97
[2022-12-12] MEDS: thiamine 100 mg Tablet PO (08:26)
[2022-12-12] MEDS: cyanocobalamin 1,000 mcg Tablet 1000 MCG PO (08:26)
[2022-12-12] MEDS: multivitamin therapeutic Tablet 1 TAB PO (08:26)
[2022-12-12] MEDS: folic acid 1 mg Tablet PO (08:26)
--- NOTE | 2022-12-12 10:28 | PC.SOCIAL ---
IMM update IMM updated with patient. Verbalized an understanding. Copy PG 2 provided. Initialled, dated, timed, and placed in chart.
--- NOTE | 2022-12-12 11:32 | PM.DCS ---
Discharge Providers Date of Admission: 12/09/22 18:32 Date of Discharge: December 12, 2022 Attending Provider at Admission: Mati Talavera MD Attending Provider at Discharge: Mati Talavera MD Primary Care Provider: Yao Mckeon MD Diagnoses at Discharge Discharge Diagnosis (1) Alcohol withdrawal: Status: Acute (2) Wernickes encephalopathy: Status: Acute (3) Hyponatremia: Status: Acute (4) Physical deconditioning: Status: Acute (5) Protein calorie malnutrition: Status: Acute (6) Muscle wasting: Status: Acute (7) Hypomagnesemia: Status: Acute (8) Transaminitis: Status: Acute Reason for Visit Reason for Visit: Decreased responsiveness Hospital Course Hospital Course Anthony Vázquez Jr is a 67 year old male with no significant past medical history, who is a smoker, history of alcoholism, who presents to [facility] due to altered mental status, nausea, vomiting.? Patient tells me that he does not know why he is here in the hospital, his son brought him into the hospital because he was having nausea, vomiting, last meal was last night, in which he ate chicken dumplings, did not have breakfast this morning due to nausea vomiting.? Denies any bloody or black stools, denies any hematemesis.? His last drink was alcohol level was Thursday morning in which she had a couple shots of whiskey.? Denies any IV drug use.? Does report smoking.? Denies marijuana use.? Denies any neck pain, no neck stiffness, no headache, blurry vision.? He does r report appetite over the last 24 hours.? No specific abdominal pain, no diarrhea, no sick contacts, no recent travel.? Denies a cardiovascular history.? No history of strokes.? No history of diabetes.? No history of liver issues.? Patient was here in the emergency room on the but alcohol level was 416, he is currently alert to person, to place, not to time, he can follow commands, his mentation is a bit delayed, no facial droop no slurring of her words, no focal weakness Patient was admitted to [facility] for altered mental status, likely multifactorial from Warnicke's encephalopathy, hyponatremia, received IV fluids, serum sodiums monitor, B12, folate, thiamine, overall patient's mentation improved, ambulating without any significant symptomatology, alert to person, to place, not to time, can follow commands, answers most questions appropriately, to some degree has some degree of confabulation so potentially he has some 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 Will be discharged on B12, folate, thiamine, advised to abstain from alcohol Patient did have alcohol withdrawal during his hospitalization, has a history of alcoholism, overall clinically improved, no significant withdrawal symptoms on discharge Hyponatremia likely a combination of beers [place], dehydration, improved with IV hydration Hypomagnesemia, improved with replacement Transaminitis related to alcoholism, monitor as outpatient Thrombocytopenia related to alcoholism On admission there was concerns for possible meningitis as an etiology behind his altered mental status, with low-grade fever, managed with IV antibiotics, steroids, Kernig sign negative, urgency sign negative, CSF studies were unremarkable clear, colorless, 1 WBC, Gram stain no WBCs, no organisms, CSF cultures so far have been negative 24 hours. Thus it is his very unlikely patient has meningitis, but nonetheless will need to follow cultures For his physical deconditioning, protein ranjana malnutrition, muscle wasting, consulted PT OT, dietary, discharged to residential facility Physical Exam Const: COMMON NORMALS: no acute distress ORIENTATION/CONSCIOUSNESS: Yes awake, Yes oriented to person and Yes oriented to place; not oriented to time Resp: COMMON NORMALS: normal respiratory effort, No retractions, No use of accessory muscles and clear to auscultation bilaterally AUSCULTATION: clear to auscultation bilaterally Cardio: COMMON NORMALS: regular rate, regular rhythm, S1 normal heart sound present and S2 normal heart sound present RATE: regular rate RHYTHM: regular rhythm HEART SOUNDS: S1 normal heart sound present and S2 normal heart sound present GI: COMMON NORMALS: Normal to inspection, nondistended, normoactive bowel sounds present and non-tender Extremity: COMMON NORMALS: no pedal edema Neuro: SENSORIUM/ORIENTATION: Yes oriented to person, Yes oriented to place and No oriented to time Psych: COMMON NORMALS: mental status grossly normal Discharge Data Studies Completed and Pending Completed Studies During Hospitalization Category Date Time Status CT chest abdomen pelvis [[place] [id number] Cat Scan 12/09/22 15:56 Completed ] Stat CT head wo con* [id number] Stat Cat Scan 12/09/22 13:23 Completed FL guided lumbarpunc dx* [id number] Stat Exams 12/10/22 17:48 Completed XR chest 1V portable [id number] Stat Exams 12/09/22 10:06 Completed Pending at discharge Category Date Time Status Blood Culture Stat Lab 12/09/22 11:09 Results CSF Culture & Gram Stain Stat Lab 12/09/22 16:50 Results Folate RBC Routine Lab 12/09/22 20:45 Received Lymes Disease Antibodies CSF Stat Lab 12/09/22 16:50 Received Sputum Culture and Gram Stain Stat Lab 12/12/22 08:40 Received [place] Enceph.Virus IFA CSF Stat Lab 12/09/22 16:50 Received Tick Panel Stat Lab 12/09/22 18:00 Results Radiology Impressions Chest/Abdomen/Pelvis CT 12/09/22 15:56 IMPRESSION: 1. Mild aneurysm of the ascending thoracic aorta (4.4 cm 2. Pulmonary emphysema. 3. Mild basilar atelectasis. IMPRESSION: 1. Fatty liver 2. Left inguinal hernia 3. No acute finding. Laboratory Results WBC 5.97 10^3/uL (3.29-11.43) 12/12/22 04:26 RBC 3.72 10^6/uL (3.85-5.65) L 12/12/22 04:26 Hgb 12.40 g/dL (11.27-16.99) 12/12/22 04:26 Hct 34.7 % (37-53) L 12/12/22 04:26 MCV 93.3 fl (82-101) 12/12/22 04:26 MCH 33.3 pg (27-33) H 12/12/22 04:26 MCHC 35.7 g/dL (30-55) 12/12/22 04:26 RDW 12.7 % (12.1-15.1) 12/12/22 04:26 Plt Count 132 10^3/cmm (157-399) L 12/12/22 04:26 MPV 10.4 fL (7.4-10.4) 12/12/22 04:26 Neut % (Auto) 63.2 % 12/12/22 04:26 Lymph % (Auto) 16.4 % 12/12/22 04:26 [place] % (Auto) 16.4 % 12/12/22 04:26 Eos % (Auto) 2.5 % 12/12/22 04:26 Baso % (Auto) 0.3 % 12/12/22 04:26 Neut # (Auto) 3.77 10^3/uL (1.8-7.7) 12/12/22 04:26 Lymph # (Auto) 1.0 10^3/uL (0.8-4.8) 12/12/22 04:26 [place] # (Auto) 1.0 10^3/uL (0.2-0.9) H 12/12/22 04:26 Eos # (Auto) 0.2 10^3/uL (0.0-0.8) 12/12/22 04:26 Baso # (Auto) 0.0 10^3/uL (0.0-0.1) 12/12/22 04:26 Nucleated RBC % (auto) 0 % 12/12/22 04:26 Nucleated RBCs # 0.0 /100WBC 12/12/22 04:26 Peripher Smr Path Cons Sent for review 12/09/22 10:26 ESR 7 mm/hr (0-10) 12/09/22 10:26 Sodium 136 mmol/L (136-145) 12/12/22 04:26 Potassium 3.3 mmol/L (3.5-5.1) L 12/12/22 04:26 Chloride 99 mmol/L (98-107) 12/12/22 04:26 Carbon Dioxide 28 mmol/L (22-29) 12/12/22 04:26 Anion Gap 12.3 (5-19) 12/12/22 04:26 BUN 16 mg/dL (8-23) 12/12/22 04:26 Creatinine 0.8 mg/dL (0.7-1.2) 12/12/22 04:26 GFR Calculation 97.0 mL/min (90-130) 12/12/22 04:26 Glucose 113 mg/dL (65-115) 12/12/22 04:26 Estimat Average Glucose 105 12/09/22 20:45 Hemoglobin A1c 5.3 % (4.0-6.0) 12/09/22 20:45 Calculated Osmolality 284 mOsm/kg (285-295) L 12/12/22 04:26 Calcium 8.7 mg/dL (8.5-10.5) 12/12/22 04:26 Phosphorus 2.5 mg/dL (2.5-4.5) 12/12/22 04:26 Magnesium 1.6 mg/dL (1.7-2.3) L 12/12/22 04:26 Total Bilirubin 0.8 mg/dL (0.15-1.2) 12/12/22 04:26 GGT 622 U/L (8-61) H 12/09/22 10:26 AST 58 U/L (0-40) H 12/12/22 04:26 ALT 63 U/L (0-41) H 12/12/22 04:26 Alkaline Phosphatase 93 U/L (40-130) 12/12/22 04:26 Ammonia 33 umol/L (16-60) 12/09/22 17:03 C-Reactive Protein 12.4 mg/L (0.0-4.9) H 12/09/22 10:26 Total Protein 5.7 g/dL (6.6-8.7) L 12/12/22 04:26 Albumin 3.4 g/dL (3.5-5.2) L 12/12/22 04:26 Globulin 2.3 g/dL (1.3-4.6) 12/12/22 04:26 Triglycerides 68 mg/dL (0-150) 12/09/22 20:45 Cholesterol 182 mg/dL (0-200) 12/09/22 20:45 LDL Cholesterol, Calc 59 mg/dL (50-129) 12/09/22 20:45 HDL Cholesterol 109 mg/dL (60-100) H 12/09/22 20:45 LDL/HDL Ratio 0.54 RATIO (0.00-3.22) 12/09/22 20:45 Cholesterol/HDL Ratio 1.67 mg/dL (1.0-5.00) 12/09/22 20:45 Lipase 100 U/L (13-60) H 12/09/22 10:26 Vitamin B12 741 pg/mL (232-1245) 12/09/22 20:45 Folate > 20.0 ng/mL (4.5-32.2) 12/09/22 20:45 Procalcitonin 0.22 ng/mL (0-0.5) 12/09/22 10:26 Urine Color Yellow (Yellow) 12/09/22 12:40 Urine Appearance Sl hazy (CLEAR) A 12/09/22 12:40 Urine pH 9 (5-7) H 12/09/22 12:40 Ur Specific [place] 1.015 (1.005-1.030) 12/09/22 12:40 Urine Protein 1+ (Negative) H 12/09/22 12:40 Urine Glucose (UA) Norm (Normal) 12/09/22 12:40 Urine Ketones 2+ (Negative) H 12/09/22 12:40 Urine Blood Neg (Negative) 12/09/22 12:40 Urine Nitrate Negative (Negative) 12/09/22 12:40 Urine Bilirubin 1+ (Negative) H 12/09/22 12:40 Urine Urobilinogen 4+ mg/dL (Negative) H 12/09/22 12:40 Ur Leukocyte Esterase Negative (Negative) 12/09/22 12:40 Urine RBC 0-4 /hpf (0-2) H 12/09/22 12:40 Urine WBC 0-4 /hpf (0-5) H 12/09/22 12:40 Ur Squamous Epith Cells 0-4 /hpf (0-5) H 12/09/22 12:40 Amorphous Sediment Not Reportable 12/09/22 12:40 Urine Bacteria None /hpf (NONE) 12/09/22 12:40 Urine Mucus 3+ /hpf 12/09/22 12:40 CSF Appearance Clear (CLEAR) 12/09/22 16:50 CSF Color Colorless (COLORLESS) 12/09/22 16:50 CSF WBC 1 /uL (0-5) 12/09/22 16:50 CSF RBC 0 10^3/uL (0-0) 12/09/22 16:50 CSF Mononuclear # Auto 0.001 10^3/uL (50-90) L 12/09/22 16:50 CSF Mononuclear WBCs % 100 % (50-90) H 12/09/22 16:50 CSF Polynuclear WBCs # 0.000 10^3/uL (0-10) 12/09/22 16:50 CSF Polynuclear WBCs % 0 % (0-10) 12/09/22 16:50 CSF Glucose 94 mg/dL (40-70) H 12/09/22 16:50 CSF Total Protein 57 mg/dL (15-45) H 12/09/22 16:50 Nasal Influ A H1 2009 PCR Not detected (NOT DETECT) 12/09/22 16:12 Vancomycin Trough 19.7 ug/mL (10-15) H 12/10/22 21:23 Urine Opiates Screen Negative ng/mL (Negative) 12/09/22 12:40 Ur Barbiturates Screen Negative ng/mL (Negative) 12/09/22 12:40 Ur Phencyclidine Scrn Negative ng/mL (Negative) 12/09/22 12:40 Ur Amphetamines Screen Negative ng/mL (Negative) 12/09/22 12:40 U Benzodiazepines Scrn Negative ng/mL (Negative) 12/09/22 12:40 Urine Cocaine Screen Negative ng/mL (Negative) 12/09/22 12:40 U Marijuana (THC) Screen Positive ng/mL (Negative) H 12/09/22 12:40 Ethyl Alcohol < 10 mg/dL (0-10) 12/09/22 10:26 Adenovirus (PCR) Not detected (NOT DETECT) 12/09/22 16:12 Lyme Ab (Western Blot) <0.90 index 12/09/22 18:00 C. pneumoniae DNA (PCR) Not detected (NOT DETECT) 12/09/22 16:12 Coronavirus 229E (PCR) Not detected (NOT DETECT) 12/09/22 16:12 Hepatitis A IgM Ab Non-reactive (Nonreactive) 12/09/22 20:45 Hep Bs Antigen Non-reactive (Nonreactive) 12/09/22 20:45 Hep B Core IgM Ab Non-reactive (Nonreactive) 12/09/22 20:45 Hepatitis C Antibody Non-reactive (Nonreactive) 12/09/22 20:45 HIV 1&2 Ab & HIV 1 Ag Non-reactive (Non-Reactiv) 12/09/22 20:45 HIV 1&2 Antibody Non-reactive (Non-Reactiv) 12/09/22 20:45 Human Metapneumovir PCR Not detected (NOT DETECT) 12/09/22 16:12 Influenza A (H1) PCR Not detected (NOT DETECT) 12/09/22 16:12 Influenza A (H3) PCR Not detected (NOT DETECT) 12/09/22 16:12 Influenza Type A Ag negative (Negative) 12/09/22 11:40 Influenza Type A (PCR) Not detected (NOT DETECT) 12/09/22 16:12 Influenza Type B Ag negative (Negative) 12/09/22 11:40 Influenza Type B (PCR) Not detected (NOT DETECT) 12/09/22 16:12 M. pneumoniae (PCR) Not detected (NOT DETECT) 12/09/22 16:12 Parainfluenza 1 (PCR) Not detected (NOT DETECT) 12/09/22 16:12 Parainfluenza 2 (PCR) Not detected (NOT DETECT) 12/09/22 16:12 Parainfluenza 3 (PCR) Not detected (NOT DETECT) 12/09/22 16:12 Parainfluenza 4 (PCR) Not detected (NOT DETECT) 12/09/22 16:12 RSV Type A (PCR) Not detected (NOT DETECT) 12/09/22 16:12 RSV Type B (PCR) Not detected (NOT DETECT) 12/09/22 16:12 Entero/Rhino (PCR) Not detected (NOT DETECT) 12/09/22 16:12 SARS-CoV-2 (PCR) Not detected (NOT DETECT) 12/09/22 16:12 SARS-CoV-2 Ag (Rapid) negative (Negative) 12/09/22 11:40 Vitals Last Vital Signs Temp 97.9 F 12/11/22 16:00 Pulse 78 12/12/22 07:40 Resp 17 12/12/22 07:40 BP 176/93 12/12/22 07:40 Pulse Ox 97 12/12/22 07:40 O2 Del Method Nasal Cannula 12/12/22 03:30 O2 Flow Rate 2 12/12/22 03:30 Discharge Plan Discharge Patient Disposition: Xfer SNF Condition: Stable Prescriptions: New cyanocobalamin (vitamin B-12) [Vitamin B-12] 1,000 mcg Tablet 1,000 mcg PO DAILY 30 Days Qty: 30 0RF multivitamin with folic acid [Thera] 400 mcg Tablet 1 tab PO DAILY 30 Days Qty: 30 0RF folic acid 1 mg Tablet 1 mg PO DAILY 30 Days Qty: 30 0RF thiamine mononitrate (vit B1) [Vitamin B-1 (mononitrate)] 100 mg Tablet 100 mg PO DAILY 30 Days Qty: 30 0RF amlodipine [Norvasc] 5 mg tablet 5 mg PO DAILY 30 Days Qty: 30 0RF No Action No Known Home Medications Discharge Orders: Discharge Order (Routine); Ordered 12/12/22 Ordered By: Mati Talavera Referrals: [facility] [Outside] Yao Mckeon MD [Primary Care Provider] - Discharge Diet: Regular Discharge Activity: Resume usual activity Patient Instructions: How to Stop Smoking (DC), Hyponatremia (ED), Dementia (ED), Alcohol Intoxication (ED), Opioid Safety Activity Restrictions/Additional Instructions: - Please stop drinking alcohol -Please stop smoking -Please have your primary care provider recheck your sodium levels, and your liver function in 1 week Discharge Attestations Time Spent in Discharge Care*: greater than 30 min Time Spent in Smoking Cessation: 3 to 10 minutes Quality Metrics Clinical Quality Measures [ No reported AMI, CVA or VTE this stay] Coding Level of Care Code 60419 Total time (in minutes) for Discharge: 45 Diagnoses Alcohol withdrawal F10.939 Wernickes encephalopathy E51.2 Hyponatremia E87.1 Physical deconditioning R53.81 Protein calorie malnutrition E46 Muscle wasting M62.50 Hypomagnesemia E83.42 Transaminitis R74.01
[2022-12-12] MEDS: amlodipine 5 mg Tablet PO (12:26)
[2022-12-12] MEDS: potassium chloride ER 20 mEq Tablet 40 MEQ PO (12:26)
[2022-12-12] MEDS: magnesium lactate 84 mg Tablet PO (12:27)
[2022-12-12 14:45] VITALS: BP 176/93; PULSE 78; RESP 17; O2SAT 97
[2022-12-16 17:21] LABS: E. Chaffeensis AB IGG <1:64; E. Chaffeensis AB IGM <1:20
[2022-12-17 20:25] LABS: Lyme Disease AB (IGG),IBL NO BANDS DETECTED; Lyme Disease AB (IGM), IBL NO BANDS DETECTED
[2022-12-18 16:49] LABS: St. Louis Enceph.Virus IGG CSF <1:1; St. Louis Enceph.Virus IGM CSF <1:1
[2022-12-18 16:49] LABS: RMSF IGG NOT DETECTED; RMSF IGM NOT DETECTED
== END 2022-12-12 14:35 | disposition skilled nursing facility (03) | DRG 897 ==
LOC: ER 15:22 → MEDSURG 18:33
PROVIDERS: Admitting Provider Family Medicine; Emergency Provider Emergency Medicine; PCP Family Medicine; Visit Provider Family Medicine
DX: F10.239 Alcohol dependence with withdrawal, unspecified (principal); E51.2 Wernicke's encephalopathy; E87.1 Hypo-osmolality and hyponatremia; E46 Unspecified protein-calorie malnutrition; F17.200 Nicotine dependence, unspecified, uncomplicated; F10.288 Alcohol dependence with other alcohol-induced disorder; E86.0 Dehydration; E83.42 Hypomagnesemia; D69.59 Other secondary thrombocytopenia; Z68.21 Body mass index [BMI] 21.0-21.9, adult
CPT/HCPCS: 36415; 62328; 70450; 71045; 71250; 74176; 80053; 80061; 80074; 80202; 80306; 80307; 80503; 81001; 82140; 82607; 82746; 82747; 82945; 82977; 83036; 83605; 83690; 83735; 84100; 84145; 84157; 84295; 85025; 85651; 86140; 86617; 86618; 86653; 86666; 86757; 87040; 87070; 87075; 87205; 87426; 87486; 87581; 87633; 87804; 87806; 89050; 92523; 92610; 93005; 94664; 96365; 96372; 97110; 97116; 97161; 97165; 99285; C9113; J0696; J1100; J1650; J2060; J3370; J3411; J3475; J7030; J7050

== ENCOUNTER → 2022-12-30 08:59 | Outpatient (BNVA) | payer MEDICARE, SELFPAY | PROVIDERS: PCP Family Medicine; Referring Provider Emergency Medicine; Visit Provider Surgery | DX: K40.90 Unilateral inguinal hernia, without obstruction or gangrene, not specified as recurrent (principal) | CPT/HCPCS: 99204 ==

== ENCOUNTER → 2023-01-27 13:52 | Outpatient (BNVA) | payer MEDICARE, SELFPAY | PROVIDERS: PCP Family Medicine; Visit Provider Student in an Organized Health Care Education/Training Program | DX: S46.001A Unspecified injury of muscle(s) and tendon(s) of the rotator cuff of right shoulder, initial encounter; X58.XXXA Exposure to other specified factors, initial encounter; M75.21 Bicipital tendinitis, right shoulder | CPT/HCPCS: 73030; 99203 ==

== ENCOUNTER → 2023-02-02 11:45 | Outpatient (BNVA) | payer MEDICARE, SELFPAY | PROVIDERS: PCP Family Medicine; Visit Provider Family Medicine | DX: Z01.818 Encounter for other preprocedural examination (principal); E46 Unspecified protein-calorie malnutrition | CPT/HCPCS: 80053; 82977; 83735; 85025 ==

== ENCOUNTER 2023-02-18 06:18 | Day surgery (SDC) | payer MEDICARE, SELFPAY ==
[2023-02-18] VITALS (11 sets, daily range): BP systolic 143–158; BP diastolic 66–95; PULSE 88–118; RESP 14–20; TEMP 36.6–37.1; O2SAT 96–100
--- OUTSIDE RECORDS SUMMARY | 2023-02-18 06:21 | XMS_ITS | Patient Health Record ---
Author Name Unknown Organization [facility] Address [address] [place] [address] Care Team Providers Care Insurance And Financial Services Agent Name Role Phone Montrell [facility]ry Primary Care Provider [phone] REASON FOR REFERRAL No Information SOCIAL HISTORY Sex Assigned At : Social History Observation Description Sex Assigned At Unknown PROBLEMS Problem Type ICD Code Onset Dates Problem Status W/U Status Risk SNOMED Code Notes Problem Wernicke's encephalopathy (E51.2) Active confirmed 08569849 Problem Muscle wasting and atrophy, not elsewhere classified, unspecified site (M62.50) Active confirmed 17820024 Problem Protein-calorie malnutrition, unspecified severity (E46) Active confirmed 382803022 Encounters Encounter Location Date Provider Diagnosis [facility] [address] [place] [address] [facility] [address] [place] [address] 12/12/2022 Montrell Murry Wernicke's encephalopathy E51.2 ; Alcohol use, unspecified with withdrawal, unspecified F10.939 ; Hypo-osmolality and hyponatremia E87.1 ; Other malaise R53.81 ; Protein-calorie malnutrition, unspecified severity E46 and Muscle wasting and atrophy, not elsewhere classified, unspecified site M62.50 [facility] [address] [place] [address] 12/29/2022 Montrell Murry Wernicke's encephalopathy E51.2 ; Alcohol use, unspecified with withdrawal, unspecified F10.939 ; Hypo-osmolality and hyponatremia E87.1 ; Other malaise R53.81 ; Protein-calorie malnutrition, unspecified severity E46 and Muscle wasting and atrophy, not elsewhere classified, unspecified site M62.50 ASSESSMENTS Encounter Date Diagnosis Assessment Notes Treatment Notes Treatment Clinical Notes 12/12/2022 Wernicke's encephalopathy (ICD-10 - E51.2) 12/12/2022 Alcohol use, unspecified with withdrawal, unspecified (ICD-10 - F10.939) 12/29/2022 Wernicke's encephalopathy (ICD-10 - E51.2) 12/12/2022 Hypo-osmolality and hyponatremia (ICD-10 - E87.1) 12/29/2022 Alcohol use, unspecified with withdrawal, unspecified (ICD-10 - F10.939) 12/12/2022 Other malaise (ICD-1 0 - R53.81) 12/29/2022 Hypo-osmolality and hyponatremia (ICD-10 - E87.1) 12/12/2022 Protein-calorie malnutrition, unspecified severity (ICD-10 - E46) 12/29/2022 Other malaise (ICD-1 0 - R53.81) 12/29/2022 Protein-calorie malnutrition, unspecified severity (ICD-10 - E46) 12/12/2022 Muscle wasting and atrophy, not elsewhere classified, unspecified site (ICD-10 - M62.50) 12/29/2022 Muscle wasting and atrophy, not elsewhere classified, unspecified site (ICD-10 - M62.50) 12/12/2022 Other Medications reviewed, orders signed and documented with nursing staff. Vitals taken and recorded at [facility]. 12/29/2022 Other Medications reviewed, orders signed and documented with nursing staff. Vitals taken and recorded at [facility]. Pt approved for discharge. PLAN OF TREATMENT No Information Insurance Providers Payer Name Payer Address Payer Phone Subscriber Number Group Number Insured Name Patient Relationship to Insured Coverage Start Date Coverage End Date [place] Medicare [address] [place] [phone] [id number] CHRISTOPHE SAMEER Self - patient is the insured [place] Medicaid [address] [place] [address] [id number] SAMEER SAEED Self - patient is the insured
--- NOTE | 2023-02-18 06:35 | W.PM.OPSFHP ---
Same Day Surgery H&P Indication for Procedure/HPI DATE OF PROCEDURE: February 18, 2023 CHIEF COMPLAINT/INDICATIONFOR SURGICAL PROCEDURE: left inguinal hernia PREOP DIAGNOSIS: left inguinal hernia PLANNED PROCEDURE: Operation Date: 02/18/23 08:15 Pro[place] Procedures p [id number] Lap possible open left inguinal hernia with mesh K40.90(Left) - Wagner Ivan MD Medications/Allergies* Home Medications Medication Instructions Recorded Confirmed Type acetaminophen 500 mg tablet 500 mg PO Q6H PRN Pain 01/27/23 02/17/23 History (Tylenol Extra Strength) Allergies/Adverse Reactions Allergy/AdvReac Type Severity Reaction Status Date / Time No Known Allergies Allergy Verified 02/17/23 09:57 Pertinent History/Comorbid Conditions* Medical History (Updated 02/09/23 @ 21:13 by Phil Arriaga DO) History of alcoholism Hyponatremia Surgical History (Updated 12/09/22 @ 17:54 by Mati Talavera MD) History of chest tube placement Family History (Updated 12/09/22 @ 17:55 by Mati Talavera MD) Lung cancer Mother Social History Smoking and tobacco/nicotine status: current every day tobacco/nicotine user Alcohol intake: current Alcohol intake frequency: 3 or more drinks per day Substance/Drug Use: never Pertinent Exam Findings alert, oriented x 3, clear to auscultation bilaterally, regular rate & rhythm and operative site marked Recommendations Surgery/Procedure today Coding Level of Care Code Acute Code for Chg Fwd Diagnoses
[2023-02-18] MEDS: sodium chloride 0.9% 1,000 ML 30 ML IV (06:52)
--- NOTE | 2023-02-18 08:01 | ANES.PREANE2 ---
Pre-Anesthetic Assessment Height/Weight: Height 1.73 m Weight 63.503 kg Temp Pulse Resp BP Pulse Ox O2 Del Method 98.2 F 118 H 20 H 150/82 98 Room Air 02/18/23 06:31 02/18/23 06:31 02/18/23 06:31 02/18/23 06:31 02/18/23 06:31 02/18/23 06:45 Preop Diagnosis: left inguinal hernia Operation Date: 02/18/23 08:15 [place]posed Procedures p [id number] Lap possible open left inguinal hernia with mesh K40.90(Left) - Wagner Ivan MD Familial anesthetic complications: none Was Beta Andrews taken within 24 hours: N/A Was Clonidine taken within 24 hours: N/A Last intake: Intake Last Liquid Date 02/17/23 Last Liquid Time 16:00 Last Solid Date 02/17/23 Last Solid Time 10:00 Social Alcohol and Tobacco Exam alert, oriented x 3 and regular rate & rhythm Airway Submandibular: within normal limits Cervical ROM: within normal limits Mallampati: Class II Dentition: chipped Comments: Comments: Very poor dentition, missing most Pulmonary Chronic Obstructive Pulmonary Disease (Heavy smoker) Anesthetic Plan ASA status: 3 Anesthesia: General Medications/Allergies Home Medications Medication Instructions Recorded Confirmed Last Taken Type acetaminophen 500 mg tablet 500 mg PO Q6H PRN Pain 01/27/23 02/18/23 02/17/23 History (Tylenol Extra Strength) Allergies Allergy/AdvReac Type Severity Reaction Status Date / Time No Known Allergies Allergy Verified 02/18/23 06:39 Current Medications Generic Name Dose Route Start Last Admin Trade Name Freq PRN Reason Stop Dose Admin Sodium Chloride 1,000 mls @ 30 mls/hr 02/18/23 06:45 02/18/23 06:52 Sodium Chloride 0.9% IV 02/19/23 06:44 30 mls/hr .Q24H JERMAINE Administration PFSH Anesthesia Medical History History of alcoholism Hyponatremia Surgical History History of chest tube placement Family History Mother Lung cancer Social History Smoking and tobacco/nicotine status: current every day tobacco/nicotine user Alcohol intake: current Alcohol intake frequency: 3 or more drinks per day Substance/Drug Use: never Data Anesthesia Cardiac Studies: No Data to Display
[2023-02-18] MEDS: ceFAZolin 2,000 MG in sodium chloride 0.9% (plus) 50 ML 100 MG IV (08:42)
[2023-02-18] MEDS: lidocaine-epi 1% PF 1:200,000 30 mL SDV 10 ML INJECTION (09:31)
[2023-02-18] MEDS: BUPivacaine 0.25% INJ 10 mL INJECTION (09:32)
--- NOTE | 2023-02-18 10:03 | PM.OP ---
Operative Report Date of procedure: February 18, 2023 Pre-op diagnosis: Left inguinal hernia Post-op diagnosis: Indirect left inguinal hernia Procedure done: Laparoscopic left inguinal hernia repair with mesh Implants: Large left 3D max mesh Surgeon: Wagner Ivan MD Gantry Rigger: LISA OR Staff Complications: None Findings: Large left indirect inguinal hernia, reducible. Brief History: Is a 67-year-old male who presented to my clinic with a left inguinal hernia, after discussion of risk and benefits as documented in my preop note we decided to proceed with laparoscopic hernia pair with mesh. Procedure: Patient was brought into the OR, he was placed in a supine position, general esthesia was given. The abdomen was prepped and draped in the usual sterile fashion. Timeout was done. A 1.5 cm infraumbilical incision was made, the incision was deepened to the level of the anterior rectus sheath. The right anterior rectus sheath was then incised the muscle was identified and retracted laterally accessing the retrorectus space. A Spacemaker was then advanced through this space up to the level of the pubic bone. Under direct visualization the balloon was inflated, creating the preperitoneal space, I then removed the Spacemaker and replaced with a 10 mm balloon trocar. Additional 5 mm trocars were placed in the suprapubic and infraumbilical location. Blunt dissection was done to excise this case of rectus on the space of Borgess. Dissection was started medially at the level of pubic tubercle anterior Elio's ligament was visualized. I then proceeded with lateral dissection creating a lateral space. But this point it was apparent that the patient had a large indirect inguinal hernia. I then proceeded with careful dissection of the hernia of from the cord structures, I was able to dissect the hernia sac from the vas deferens and the spermatic vessels and subsequently the hernia sac was completely reduced, about 6 cm from the internal ring. Once dissection was completed, hemostasis was verified. At this point I proceeded to place a large left 3D max mesh on the preperitoneal space. The mesh was placed covering the direct, indirect and femoral spaces and tacked to the pubic bone medially with an absorbable tacker. The abdomen was deflated under direct visualization ensuring that the mesh lay flat. After deflation all trocars were removed. The anterior rectus sheath was then closed with a #0 Vicryl. The wounds were then closed with #4-0 Monocryl and Dermabond was applied. At the end of the procedure all counts were correct, the patient tolerated well the procedure was extubated and transferred to the PACU in stable condition.
[2023-02-18] MEDS: oxyCODONE-APAP 5-325 mg Tablet 1 TAB PO (10:53)
--- NOTE | 2023-02-18 17:40 | ANE.PACU2 ---
Inpatient post-anesthesia follow up: Airway intact: Yes Vital signs: Temperature 97.8 F Pulse Rate 88 Respiratory Rate 18 Blood Pressure 158/74 Pulse Oximetry 98 Oxygen Delivery Me thod Room Air Oxygen Flow Rate 6 Fraction of Inspir ed Oxygen Hydration adequate: Yes Nausea and vomiting: No Pain level: 3 Mental status: Baseline
== END 2023-02-18 11:40 | disposition home or self-care (01) ==
PROVIDERS: PCP Family Medicine; Visit Provider Surgery
PROC: (CPT 49650; principal; 2023-02-18 08:15)
DX: K40.90 Unilateral inguinal hernia, without obstruction or gangrene, not specified as recurrent (principal); J44.9 Chronic obstructive pulmonary disease, unspecified; F17.210 Nicotine dependence, cigarettes, uncomplicated
CPT/HCPCS: 49650; 51702; C1781; J0690; J1100; J1170; J2250; J2405; J2704; J3010; J3490; J7030

== ENCOUNTER 2024-11-22 14:14 | Inpatient (IN) | payer MEDICARE, SELFPAY ==
[2024-11-22] VITALS (51 sets, daily range): BP systolic 61–148; BP diastolic 42–118; PULSE 75–140; RESP 14–22; TEMP 37.4; O2SAT 87–100
--- NOTE | 2024-11-22 14:21 | XRR_ITS ---
PROCEDURE INFORMATION: Exam: XR Chest Exam date and time: 11/22/2024 2:36 PM Age: 69 years old Clinical indication: Other: AMS; Additional info: AMS ett ng tube TECHNIQUE: Imaging protocol: Radiologic exam of the chest. Views: 1 view. COMPARISON: CT chest abdpel [id number] 12/09/2022 4:14 PM FINDINGS: Tubes, catheters and devices: Endotracheal tube terminates above the merritt by 3.0 cm on the 2nd image. Esophagogastric tube is present with the tip in the stomach on the 2nd image. Lungs: Unremarkable. No consolidation. Pleural spaces: Unremarkable. No pleural effusion. No pneumothorax. Heart/Mediastinum: Unremarkable. No cardiomegaly. Bones/joints: Unremarkable. XR/XR chest 1V portable [id number] IMPRESSION: 1. Endotracheal tube terminates above the merritt by 3.0 cm on the 2nd image. 2. Esophagogastric tube is present with the tip in the stomach on the 2nd image. 3. No acute cardiopulmonary process.
--- NOTE | 2024-11-22 14:21 | CT_ITS ---
WS: [id number] CTA HEAD AND NECK TECHNIQUE: Contrast enhanced CTA of the head and neck with coronal and sagittal reformatted images and maximum intensity projection (MIP) images. NASCET criteria utilized. CLINICAL INFORMATION: ams COMPARISON: None. DLP: 401.[address] scans at [facility] use at least one of these dose optimization techniques: automated exposure control; mA and/or kV adjustment per patient size (includes targeted exams where dose is matched to clinical indication); or iterative reconstruction. FINDINGS: RIGHT: No significant ICA stenosis. Mild carotid bulb calcification LEFT: No significant ICA stenosis. Mild carotid bulb calcification INTRACRANIAL CTA: Both vertebral arteries are patent. RIGHT dominant vertebral artery. Basilar artery is patent. Normal vascularity to the B[employer]ING [employer]ILL [employer] territory bilaterally. Both ICAs are patent at the skull base. Normal vascularity to the MORGAN and MCA territories bilaterally. No proximal flow- limiting stenosis. 40% stenosis LEFT subclavian artery proximally. RIGHT subclavian artery is patent. Advanced emphysematous changes in the lung apices. Aortic arch calcification. Moderate spondylitic changes cervical spine. CT/CT angio headneck* [id number] IMPRESSION: 1. No significant cervical ICA stenosis. 2. No flow-limiting intracranial stenosis. 3. Approximately 40% chronic stenosis proximal LEFT subclavian artery. RIGHT s ubclavian artery is patent.
--- NOTE | 2024-11-22 14:22 | CT_ITS ---
WS: [id number] CT HEAD TECHNIQUE: Noncontrast CT of the head obtained from the skullbase to the vertex. CLINICAL INFORMATION: Symptoms of acute stroke COMPARISON: 2022 DLP: All CT scans at [facility] use at least one of these dose optimization techniques: automated exposure control; mA and/or kV adjustment per patient size (includes targeted exams where dose is matched to clinical indication); or iterative reconstruction. FINDINGS: No evidence of intracranial hemorrhage or mass effect. Ventricular system and basal cisterns are patent. Mild small vessel changes with mild parenchymal volume loss. No extra-axial fluid collections. No evidence of mass or mass effect. Normal soto-white differentiation. Paranasal sinuses and mastoid air cells are well aerated. .Normal visualized soft tissues. CT/CT head thrombolytic [id number] IMPRESSION: 1. No evidence of intracranial hemorrhage or mass effect. 2. No acute intracranial findings. Notified Tomasa Herron MD at 11/22/2024 2:39 PM.
--- NOTE | 2024-11-22 14:29 | ED_ITS ---
HPI - Altered Mental Status 2 General: Chief Complaint: Altered Mental Status Stated Complaint: ams Time Seen by Provider: 11/22/24 14:15 Source: EMS Mode of arrival: EMS Limitations: altered mental status History of Present Illness: 69-year-old male presents here from home with altered mental status. Patient does have a history of alcohol abuse along with Warnicke's encephalopathy per EMS they believe family last saw him around 1030 when he came back he was very altered with EMS patient was altered and combative biting kicking not following any commands I did give him Haldol and ketamine patient still is very combative here not following any commands unable to answer any questions. Family is here now giving further history states that he has history of alcoholism has had withdrawals in the past states he had not had a drink in 4 days and had been saying he was not feeling well. Related Data Home Medications ?Medication ?Instructions ?Recorded ?Confirmed acetaminophen 500 mg tablet 500 mg PO Q6H PRN Pain 11/22/24 (Tylenol Extra Strength) Allergies Allergy/AdvReac Type Severity Reaction Status Date / Time No Known Allergies Allergy Verified 02/18/23 06:39 Review of Systems 2 General: Reports: ROS unobtainable due to mental status PFSH ED 2 PFSH: Medical History History of alcoholism Hyponatremia Surgical History History of chest tube placement Family History Mother Lung cancer Social History Smoking and tobacco/nicotine status: current every day tobacco/nicotine user Alcohol intake: current Alcohol intake frequency: 3 or more drinks per day Substance/Drug Use: never Physical Exam 2 Const: COMMON NORMALS: negative for patient oriented x3 EXAM LIMITATIONS: a ltered mental status GENERAL APPEARANCE: disheveled HENMT: COMMON NORMALS: normocephalic and atraumatic HEAD & SCALP: n ormocephalic and atraumatic Eye: COMMON NORMALS: Equal, round and reactive pupils present and EOMs intact bilaterally PUPIL: Yes Equal, round and reactive pupils present Neck/C-Spine: COMMON NORMALS: full ROM and supple Chest: COMMONS NORMALS: normal inspection of the chest Resp: COMMON NORMALS: normal respiratory effort, No retractions, No use of accessory muscles and clear to auscultation bilaterally AUSCULTATION: clear to auscultation bilaterally Cardio: COMMON NORMALS: regular rhythm and No murmurs present (Cardio) R ATE: tachycardic RHYTHM: regular rhythm GI: COMMON NORMALS: Normal to inspection, nondistended, normoactive bowel sounds present, Soft to palpation, non-tender and no masses PALPATION: Yes Soft to palpation Extremity: COMMON NORMALS: normal to inspection and full ROM Neuro: COMMON NORMALS: negative for patient oriented x3 OTHER: Patient is moving all extremities but not following any commands at this time Psych: COMMON NORMALS: negative for mental status grossly normal, negative for Normal thought process present and negative for cooperative THOUGHT PROCESS: abnormal Skin: COMMON NORMALS: no rashes or lesions noted and no wounds GENERAL SKIN EXAM: no rashes or lesions noted Procedures Intubation Time out performed: Yes sedative: Etomidate Mg Given: 20 paralytic: Vecuronium Mg Given: 8 Laryngoscope: Sandrita ET Tube Size: 8 ET Tube Uncuffed: No Tube Secured Depth (cm): 25 Tube Secured Location: teeth Tube Placement Confirmation: visualized tube passing through cords, equal breath sounds bilaterally, no breath sounds over epigastrium and confirmation by capnometry Patient Tolerated Procedure: well Intubation Complications: none Course 2 Vital Signs: Vital signs: Vital Signs Pulse Rate 106 H 11/22/24 15:38 Respiratory Rate 22 H 11/22/24 15:38 Blood Pressure 118/86 11/22/24 15:38 Pulse Oximetry 100 11/22/24 15:38 Oxygen Delivery Me thod Mechanical Ventil ation 11/22/24 14:48 Fraction of Inspir ed Oxygen 100 11/22/24 15:08 MDM - Altered Mental Status Medical Decision Making Patient presents here with altered mental status he is quite combative here head and ingrid him due to his combativeness. Per speaking to family he likely had a withdrawal seizure causing this. Second EKG did show some ST elevations likely early repull he had material yard clerk Dr. Thomson look at the EKG as well and he agreed we will trend troponins. Patient's heart rate and blood pressure here have improved. Medical Records I reviewed the patient's medical records. Lab Data I reviewed the patient's lab results. 11/22/24 15:23 11/22/24 15:23 Radiology Impressions Head/Neck CTA 11/22/24 14:21 IMPRESSION: 1. No significant cervical ICA stenosis. 2. No flow-limiting intracranial stenosis. 3. Approximately 40% chronic stenosis proximal LEFT subclavian artery. RIGHT subclavian artery is patent. Head CT 11/22/24 14:22 IMPRESSION: 1. No evidence of intracranial hemorrhage or mass effect. 2. No acute intracranial findings. Notified Tomasa Herron MD at 11/22/2024 2:39 PM. Chest X-Ray 11/22/24 15:13 IMPRESSION: 1. Endotracheal tube terminates above the merritt by 4.0 cm. 2. No acute cardiopulmonary process. Laboratory Results WBC 7.00 10^3/uL (3.29-11.43) 11/22/24 15:23 RBC 4.00 10^6/uL (3.85-5.65) 11/22/24 15:23 Hgb 14.10 g/dL (11.27-16.99) 11/22/24 15:23 Hct 39.4 % (37-53) 11/22/24 15:23 MCV 98.5 fl (82-101) 11/22/24 15:23 MCH 35.3 pg (27-33) H 11/22/24 15:23 MCHC 35.8 g/dL (30-55) 11/22/24 15:23 RDW 14.4 % (12.1-15.1) 11/22/24 15:23 Plt Count 36 10^3/cmm (157-399) L 11/22/24 15:23 MPV 11.5 fL (7.4-10.4) H 11/22/24 15:23 Neut % (Auto) 78.2 % 11/22/24 15:23 Lymph % (Auto) 9.9 % 11/22/24 15:23 Gove % (Auto) 7.7 % 11/22/24 15:23 Eos % (Auto) 2.6 % 11/22/24 15:23 Baso % (Auto) 0.6 % 11/22/24 15:23 Neut # (Auto) 5.48 10^3/uL (1.8-7.7) 11/22/24 15: Lymph # (Auto) 0.7 10^3/uL (0.8-4.8) L 11/22/24 15: Gove # (Auto) 0.5 10^3/uL (0.2-0.9) 11/22/24 15: Eos # (Auto) 0.2 10^3/uL (0.0-0.8) 11/22/24 15: Baso # (Auto) 0.0 10^3/uL (0.0-0.1) 11/22/24: Nucleated RBC % (auto) 0 % 11/22/24: Nucleated RBCs # 0.0 /100WBC 11/22/24 15: PT 12.30 SECONDS (12.1-14.9) 11/22/24: INR 0.86 (0.8-1.2) 11/22/24: APTT 25.2 SECONDS (23.9-36.7) 11/22/24: Specimen Type Arterial 11/22/24 16:00 Sample Site Brachial, right 11/22/24 16:00 ABG pH 7.44 (7.35-7.45) 11/22/24 16:00 ABG pCO2 39.0 mmHg (35-45) 11/22/24 16:00 ABG pO2 475.0 mmHg (80.0-100.0) H 11/22/24 16:00 ABG PO2/FiO2 Ratio 475 11/22/24 16:00 ABG HCO3 26.2 mmol/L (22-26) H 11/22/24 16:00 ABG O2 Saturation > 99.1 11/22/24 16:00 ABG Base Excess 1.9 mmol/L (-2.0-2.0) 11/22/24 16:00 Aaron Test N/a 11/22/24 16:00 A-a O2 Gradient 22.9 mmHg (5-10) H 11/22/24 16:00 Hematocrit 41.9 % (42-52) L 11/22/24 16:00 Hgb O2 Saturation 97.6 % (95-100) 11/22/24 16:00 Carboxyhemoglobin 2.7 %THgb (0.4-20.1) 11/22/24 16:00 Methemoglobin 0.2 % (0.4-1.5) L 11/22/24 16:00 Total Hemoglobin 13.7 g/dL (14-18) L 11/22/24 16:00 Sodium 132.0 mmol/L (131-143) 11/22/24 16:00 Potassium 3.2 mmol/L (3.5-5.0) L 11/22/24 16:00 Glucose 181.0 mg/dL (70-115) H 11/22/24 16:00 Ionized Calcium 1.1 mmol/L (1.1-1.4) 11/22/24 16:00 O2 Delivery Device Vent 11/22/24 16:00 FiO2 100.0 % 11/22/24 16:00 Tidal Volume 0.45 11/22/24 16:00 PEEP 8.0 cmH20 11/22/24 16:00 Global Marketing Specialist ID Gd 11/22/24 16:00 Sodium 127 mmol/L (136-145) L 11/22/24 15:23 Potassium 3.9 mmol/L (3.5-5.1) 11/22/24 15:23 Chloride 91 mmol/L (98-107) L 11/22/24 15:23 Carbon Dioxide 27 mmol/L (22-29) 11/22/24 15:23 Anion Gap 12.9 (5-19) 11/22/24 15:23 BUN 18 mg/dL (8-23) 11/22/24 15:23 Creatinine 0.6 mg/dL (0.7-1.2) L 11/22/24 15:23 GFR Calculation 134.4 mL/min (90-130) H 11/22/24 15:23 Glucose 163 mg/dL (65-115) H 11/22/24 15:23 Calculated Osmolality 269 mOsm/kg (285-295) L 11/22/24 15:23 Calcium 8.8 mg/dL (8.5-10.5) 11/22/24 15:23 Magnesium 1.2 mg/dL (1.7-2.3) L 11/22/24 15:23 Total Bilirubin 1.0 mg/dL (0.15-1.2) 11/22/24 15:23 AST 165 U/L (0-40) H 11/22/24 15:23 ALT 115 U/L (0-41) H 11/22/24 15:23 Alkaline Phosphatase 118 U/L (40-130) 11/22/24 15:23 Ammonia 51 umol/L (16-60) 11/22/24 15:23 Troponin T Baseline 30 ng/L (0-15) H 11/22/24 15:23 Total Protein 6.1 g/dL (6.6-8.7) L 11/22/24 15:23 Albumin 4.0 g/dL (3.5-5.2) 11/22/24 15:23 Globulin 2.1 g/dL (1.3-4.6) 11/22/24 15:23 Urine Color Yellow (Yellow) 11/22/24 14:50 Urine Appearance Clear (CLEAR) 11/22/24 14:50 Urine pH 7.5 (5-7) 11/22/24 14:50 Ur Specific Edwards 1.044 (1.005-1.030) H 11/22/24 14:50 Urine Protein 1+ (Negative) A 11/22/24 14:50 Urine Glucose (UA) Negative (Normal) 11/22/24 14:50 Urine Ketones Negative (Negative) 11/22/24 14:50 Urine Blood Negative (Negative) 11/22/24 14:50 Urine Nitrate Negative (Negative) 11/22/24 14:50 Urine Bilirubin Negative (Negative) 11/22/24 14:50 Urine Urobilinogen 1.0 mg/dL (Negative) 11/22/24 14:50 Ur Leukocyte Esterase Negative (Negative) 11/22/24 14:50 Urine RBC 0-2 /hpf (0-2) 11/22/24 14:50 Urine WBC 0-5 /hpf (0-5) 11/22/24 14:50 Ur Squamous Epith Cells 0-5 /hpf (0-5) 11/22/24 14:50 Amorphous Sediment Not Reportable 11/22/24 14:50 Urine Bacteria None seen /hpf (NONE) 11/22/24 14:50 Hyaline Casts 3.71 /lpf 11/22/24 14:50 Urine Opiates Screen Negative ng/mL (Negative) 11/22/24 14:50 Ur Barbiturates Screen Negative ng/mL (Negative) 11/22/24 14:50 Ur Phencyclidine Scrn Negative ng/mL (Negative) 11/22/24 14:50 Ur Amphetamines Screen Negative ng/mL (Negative) 11/22/24 14:50 U Benzodiazepines Scrn Negative ng/mL (Negative) 11/22/24 14:50 Urine Cocaine Screen Negative ng/mL (Negative) 11/22/24 14:50 U Marijuana (THC) Screen Positive ng/mL (Negative) H 11/22/24 14:50 Ethyl Alcohol < 10 mg/dL (0-10) 11/22/24 15:23 All radiology interpretation(s) finalized by discharge Critical Care Time 2 Critical Care Time: Critical Care Time: Yes Total Critical Care Time: 50 Attestation: The high probability of a clinically significant, sudden or life threatening deterioration of the patient's neuro system(s) required my full and direct attention, intervention and personal management. The critical care time is as shown. This time is in addition to time spent performing any reported procedures but includes the following: [x] Data and vital sign review and interpretation [x] Patient assessment, examination and intervention [x] Documentation [x] Medication orders and management Discharge Plan Discharge Patient Disposition: Admitted As Inpatient Clinical Impression: Altered mental status Condition: Stable Coding Level of Care Code ED Women'S Lacrosse Coach for Sunshine Cardenas
[2024-11-22] MEDS: ketamine 100 mg/mL Inj 5 mL IVP (14:30)
[2024-11-22] MEDS: iohexol 350 mg/mL 500 mL Btl (per mL) IV (14:34)
[2024-11-22] MEDS: etomidate 2 mg/mL INJ SDV 10 mL 20 MG IVP (14:42)
[2024-11-22] MEDS: vecuronium 10 mg SDV 8 MG IVP (14:42)
[2024-11-22] MEDS: propofol 1,000 MG/100 ML INJ 5 MG IV (14:47)
--- NOTE | 2024-11-22 15:09 | ECG_ITS ---
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 Measurements Intervals [place] Rate: 146 P: 67 NV: 122 QRS: 87 QRSD: 94 T: 73 QT: 280 QTc: 437 Interpretive Statements SINUS TACHYCARDIA NV Depression ST ELEVATION, EARLY REPOLARIZATION VERSUS PERICARDITIS [ST ELEVATION WITH NORMALLY INFLECTED T-WAVE] ABNORMAL ECG Compared to ECG 12/09/2022 10:10:21 NV DEPRESSION IS NEW AND PEAKED T WAVES NO LONGER PRESENT Electronically Signed On 11-23-2024 21:37:03 CDT by Javier Solares M.D. [id number]
--- NOTE | 2024-11-22 15:13 | XRR_ITS ---
PROCEDURE INFORMATION: Exam: XR Chest Exam date and time: 11/22/2024 3:15 PM Age: 69 years old Clinical indication: Device placement; Ett placement (vent status) TECHNIQUE: Imaging protocol: Radiologic exam of the chest. Views: 1 view. COMPARISON: CR XR chest 1V portable [id number] 11/22/2024 2:36 PM FINDINGS: Tubes, catheters and devices: Endotracheal tube terminates above the merritt by 4.0 cm. Enteric tube has been placed with the tip below the diaphragm. Lungs: Probable emphysematous bleb at the right apex. Pleural spaces: Unremarkable. No pleural effusion. No pneumothorax. Heart/Mediastinum: Unremarkable. No cardiomegaly. Bones/joints: Unremarkable. XR/XR chest 1V portable [id number] IMPRESSION: 1. Endotracheal tube terminates above the merritt by 4.0 cm. 2. No acute cardiopulmonary process.
--- NOTE | 2024-11-22 15:13 | PC.PHAR ---
Called [facility] they stated they didn't have any medications since 2022 and didn't see anything at any other [facility] .
[2024-11-22 15:33] LABS: Hematocrit 39.4 % (37-53); Hemoglobin 14.10 g/dL (11.27-16.99); Mean Corpuscular HGB Conc 35.8 g/dL (30-55); Mean Corpuscular Hemoglobin 35.3 pg (27-33); Mean Corpuscular Volume 98.5 fl (82-101); Nucleated Red Blood Cells % 0 %; Platelet Count 36 10^3/cmm (157-399); Red Blood Count 4.00 10^6/uL (3.85-5.65); White Blood Count 7.00 10^3/uL (3.29-11.43)
[2024-11-22] MEDS: labetalol 5 mg/mL SDV 20mL 10 MG IVP (15:36)
[2024-11-22] MEDS: thiamine 100 mg/mL 2mL SDV IVP (15:36)
[2024-11-22 15:41] LABS: Glucose Urine UA Negative (Normal); Nitrate Urine Negative (Negative)
[2024-11-22 15:46] LABS: INR 0.86 (0.8-1.2); Partial Thromboplastin Time 25.2 SECONDS (23.9-36.7); Prothrombin Time 12.30 SECONDS (12.1-14.9)
[2024-11-22 15:47] LABS: Add Urine Microscopic? YES
[2024-11-22 15:48] LABS: Troponin(5th) Baseline 30 ng/L (0-15)
[2024-11-22 15:50] LABS: Alanine Aminotransferase 115 U/L (0-41); Albumin Level 4.0 g/dL (3.5-5.2); Alkaline Phosphatase 118 U/L (40-130); Aspartate Amino Transferase 165 U/L (0-40); Blood Urea Nitrogen 18 mg/dL (8-23); Calcium 8.8 mg/dL (8.5-10.5); Carbon Dioxide 27 mmol/L (22-29); Chloride 91 mmol/L (98-107); Creatinine Clr Calc Pharmacy 88.8040; Globulin 2.1 g/dL (1.3-4.6); Glucose 163 mg/dL (65-115); Magnesium 1.2 mg/dL (1.7-2.3); Osmolality Calculated 269 mOsm/kg (285-295); Sodium 127 mmol/L (136-145); Total Protein 6.1 g/dL (6.6-8.7)
[2024-11-22 15:51] LABS: Alcohol Level < 10 mg/dL (0-10)
[2024-11-22 15:52] LABS: Anion Gap 12.9 (5-19); Potassium 3.9 mmol/L (3.5-5.1)
--- NOTE | 2024-11-22 15:55 | ECG_ITS ---
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 Measurements Intervals [place] Rate: 92 P: 82 MI: 167 QRS: 88 QRSD: 117 T: 88 QT: 360 QTc: 447 Interpretive Statements SINUS RHYTHM MODERATE INTRAVENTRICULAR CONDUCTION DELAY [110+ ms QRS DURATION] ST ELEVATION, CONSIDER INJURY VERSUS EARLY REPOLARIZATION [MARKED ST ELEVATION W/O NORMALLY INFLECTED T-WAVE IN I/aVL/V5/V6] Compared to ECG 12/09/2022 10:10:21 Sinus tachycardia no longer present Electronically Signed On 11-23-2024 21:29:25 CDT by Javier Solares M.D. [id number]
[2024-11-22 15:59] LABS: PCP Screen Urine Negative (Negative)
[2024-11-22 16:01] LABS: Specific Gravity, Urine 1.044 (1.005-1.030); UA Slide Review UA Slide Review Perf
[2024-11-22 16:06] LABS: Ammonia 51 umol/L (16-60)
[2024-11-22 16:15] LABS: ABG PCO2 39.0 mmHg (35-45); ABG PH Result 7.44 (7.35-7.45); Alveolar-Arterial Oxygen Gradi 22.9 mmHg (5-10); Arterial Blood Gas Hematocrit 41.9 % (42-52); Blood Gas Operator Identificat GD; Blood Gas Sample Site Brachial, right; Blood Gas Sample Type Arterial; Blood Gas Tidal Volume 0.45; Carboxyhemoglobin 2.7 %THgb (0.4-20.1); Glucose Level-ABG 181.0 mg/dL (70-115); HCO3 ABG 26.2 mmol/L (22-26); Ionized Calcium Level - ABG 1.1 mmol/L (1.1-1.4); Methemoglobin 0.2 % (0.4-1.5); Oxygen Saturation ABG > 99.1; PEEP 8.0 cmH20; PO2 ABG 475.0 mmHg (80.0-100.0); PO2 FiO2 Ratio Arterial Blood 475; Potassium Level - ABG 3.2 mmol/L (3.5-5.0); Sodium Level - ABG 132.0 mmol/L (131-143)
[2024-11-22] MEDS: magnesium sulfate premix 2 GM/50 ML PIGGYBACK IV (16:27)
[2024-11-22] MEDS: fentaNYL 1,000 MCG/100 ML BAG 2.5 MCG IV (16:28)
[2024-11-22] MEDS: midazolam 1 mg/mL INJ 2 mL 2 MG IVP (16:39)
[2024-11-22 16:48] LABS: Lactic Sepsis W/Reflex 1.1 mmol/L (0.5-2.2)
[2024-11-22 16:49] LABS: Lipase 144 U/L (13-60)
[2024-11-22 17:04] LABS: Procalcitonin 0.19 ng/mL (0-0.5); Vitamin B12 1069 pg/mL (232-1245)
[2024-11-22 17:28] LABS: LAB Peripheral Smear Sent for Review
--- NOTE | 2024-11-22 17:31 | ECG_ITS ---
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 Measurements Intervals [place] Rate: 80 P: 75 PA: 173 QRS: 78 QRSD: 92 T: 75 QT: 381 QTc: 442 Interpretive Statements SINUS RHYTHM SEPTAL MYOCARDIAL INFARCTION , OF INDETERMINATE AGE [40+ ms Q WAVE IN V1/V2] ST ELEVATION CONSIDER EARLY REPOLARIZATION VERSUS INJURY Compared to ECG 11/22/2024 15:55:52 NO SIGNIFICANT CHANGE Electronically Signed On 11-23-2024 21:52:09 CDT by Javier Solares M.D. [email or web address] [id number]
--- NOTE | 2024-11-22 17:48 | PC.NURSE ---
arrived from ed, intubated, mar adjusted to rate on pumps, transferred with lift sheet
--- NOTE | 2024-11-22 17:59 | P.HP_ITS ---
Providers/Chief Complaint 2 Admitting Physician: Mati Talavera MD Primary Care Provider: Yao Mckeon MD Chief Complaint: ams History of Present Illness Anthony Vázquez Jr is a 69 year old male is a 69-year-old male with a past medical history of alcoholism, Warnicke's encephalopathy, history of hyponatremia, hypomagnesemia, transaminitis, history of thrombocytopenia, history of alcohol associated protein calorie malnutrition, who presents [facility] due to altered mental status. Currently patient is intubated, sedated on mechanical ventilation, on propofol and fentanyl for sedation, on 40% FiO2 MAP is around 65, normal sinus rhythm. According to ER provider, family last saw him at 10:30 PM last night, family saw him this morning he was confused and EMS on arrival noted that he is quite altered, combative, he received Haldol, ketamine, still combative in the emergency room, combative in the emergency room intubated by ER provider. According to family he has not had a drink of alcohol in 4 days there is concerns for alcohol withdrawal seizure sometime at home? Review of Systems 2 General: Reports: ROS unobtainable due to endotracheal tube Medications/Allergies Home Medications ?Medication ?Instructions ?Recorded ?Confirmed ?Last Taken ?Type acetaminophen 500 mg tablet 500 mg PO Q6H PRN Pain 11/22/24 02/17/23 History (Tylenol Extra Strength) Allergies Allergy/AdvReac Type Severity Reaction Status Date / Time No Known Allergies Allergy Verified 02/18/23 06:39 PFSH Acute 2 PFSH: Medical History History of alcoholism Hyponatremia Surgical History History of chest tube placement Family History Mother Lung cancer Social History Smoking and tobacco/nicotine status: current every day tobacco/nicotine user Alcohol intake: current Alcohol intake frequency: 3 or more drinks per day Substance/Drug Use: never Vitals/I&O/Wt Last Vital Signs Pulse 106 H 11/22/24 15:38 Resp 14 11/22/24 17:51 BP 118/86 11/22/24 15:38 Pulse Ox 98 11/22/24 17:51 O2 Del Method Mechanical Ventilation 11/22/24 17:42 FiO2 40 11/22/24 17:51 11/22/24 11/22/24 11/22/24 06:59 14:59 22:59 Intake Total 1061.250 / 1061.250 Balance 1061.250 / 1061.250 Weight last 48 hrs Weight 72.575 kg Physical Exam 2 Const: COMMON NORMALS: no acute distress HENMT: COMMON NORMALS: normocephalic HEAD & SCALP: normocephalic Eye: COMMON NORMALS: Equal, round and reactive pupils present Neck/C-Spine: COMMON NORMALS: no JVD Lymph: LYMPHATIC: no lymphadenopathy noted Resp: COMMON NORMALS: normal respiratory effort, No retractions, No use of accessory muscles and clear to auscultation bilaterally AUSCULTATION: clear to auscultation bilaterally Cardio: COMMON NORMALS: regular rate, regular rhythm, S1 normal heart sound present and S2 normal heart sound present RATE: regular rate RHYTHM: r egular rhythm HEART SOUNDS: S1 normal heart sound present and S2 normal heart sound present GI: COMMON NORMALS: Normal to inspection, nondistended, normoactive bowel sounds present, Soft to palpation and non-tender Extremity: COMMON NORMALS: no pedal edema Neuro: OTHER: Intubated, on sedation, on mechanical ventilation, does move bilateral upper extremities, does move head [id number], falls back asleep Data 11/22/24 15:23 11/22/24 15:23 Micro: Microbiology 11/22/24 15:00 Gram Stain - Final Sputum - Endotracheal Tube Aspirate A&P Assessment and plan 1. Protein calorie malnutrition: 2. Thrombocytopenia: 3. Transaminitis: 4. Altered mental status: 5. Wernickes encephalopathy: 6. Alcohol withdrawal delirium: 7. Airway intubation performed without difficulty: 8. On mechanically assisted ventilation: 9. High Agitation Sedation Scale (RASS) score minus 4, deep sedation: 10. Alcohol withdrawal seizure: 11. Acute hypoxic respiratory failure: Plan: Acute hypoxic respiratory failure - Currently intubated, sedated on mechanical ventilation - Propofol, fentanyl for sedation -Will keep sedated, due to concerns for alcohol withdrawal -Spontaneous breathing trial once appropriate - DuoNeb - Budesonide Altered mental status -With combative behavior ketamine, in the emergency room -Status post - CT head within normal limits - CTA head and neck CT/CT angio headneck* [id number] IMPRESSION: 1. No significant cervical ICA stenosis. 2. No flow-limiting intracranial stenosis. 3. Approximately 40% chronic stenosis proximal LEFT subclavian artery. RIGHT subclavian artery is patent. - Ammonia levels within normal limits - Likely from alcohol withdrawal, alcohol withdrawal seizure - Concern for possible Warnicke's encephalopathy? Will start patient on high- dose thiamine 200 mg 3 times daily for 5 days Alcohol withdrawal, delirium tremens, alcohol withdrawal seizure - Currently intubated, sedated on mechanical ventilation - Currently on propofol - Currently on fentanyl drip -Versed pushes, consider Versed - History of Warnicke's encephalopathy, IV thiamine - Banana bag - Folic acid - Neurochecks, NIH stroke scale, seizure precautions Thrombocytopenia - LDH, haptoglobin, peripheral smear Hyponatremia Transaminitis Hypomagnesemia, will place IV Sepsis? - Does have hypotension, altered mental status - With hypotension could be could be from sedation, alcohol withdrawal -Nonetheless - Blood cultures ordered - CT chest abdomen pelvis -Inflammatory markers, CRP, Pro-Aman - Vancomycin, Zosyn - Monitor closely NSTEMI - Serial EKGs, short troponins, telemetry monitoring - Cardiac echo Full code SCDs for DVT prophylaxis Lovenox prophy contraindicated given thrombocytopenia PDMP PDMP Reviewed: Not Reviewed Attestations 2 Medical Necessity Statement*: Patient requires hospitalization, inpatient, greater than 2 midnights, for acute hypoxic respiratory failure, alcohol withdrawal delirium, also withdrawal seizures, delirium tremens, thrombocytopenia Coding Level of Care Code Critical Care >/= 30 minutes Critical care time (in minutes): 50 The high probability of a clinically significant, sudden or life threatening deterioration, as referenced in this documentation, required my full and direct attention, intervention and personal management. The critical care time shown is in addition to time spent performing any reported separately billable procedures and includes the following: [x] Data and vital sign review and interpretation [x ] Patient assessment, examination and intervention [x] Medication orders and management [x] Patient/Family updates as able [x] Care Coordination and Documentation. Diagnoses Protein calorie malnutrition E46 Thrombocytopenia D69.6 Transaminitis R74.01 Altered mental status R41.82 Wernickes encephalopathy E51.2 Alcohol withdrawal delirium F10.931 Airway intubation performed without difficulty Z78.9 On mechanically assisted ventilation Z99.11 High Agitation Sedation Scale (RASS) score minus 4, deep sedation Z78.9 Alcohol withdrawal seizure F10.939; R56.9 Acute hypoxic respiratory failure J96.01 Sepsis Event Note ED Sepsis Screening 2 Sepsis Screen No Definite Risk Today, 17:15 Quick SOFA Score 1 Today, 17:15 If qSOFA score 2 or greater, continue SOFA Score: 2 ABG PO2/FiO2 Ratio 475 Today, 16:00 [place] Coma Scale Score 10 Today, 17:42 Blood Pressure Mean 75 mmHg Today, 17:15 Total Bilirubin, (0.15-1.2) 1.0 mg/dL Today, 15:23 Platelet Count, (157-399) 36 10^3/cmm L Today, 15:23 Creatinine, (0.7-1.2) 0.6 mg/dL L Today, 15:23 PaO2/FiO2 Ratio (mmHg): 475 [place] coma scale: 10 Blood Pressure Mean: 75 Bilirubin (mg/dl): 1.0 Platelets (x10?/ml): 36 Creatinine (mg/dl): 0.6 SOFA Score: 5 Evaluation Current stage of sepsis: sepsis Sepsis stage criteria used: [facility] Sep-1 and Sepsis-3 Crystalloid fluids: less than 30 mL/kg crystalloid fluids ordered Blood cultures ordered: Yes Possible source: unknown Focused Exam Vital signs: Pulse Resp BP Pulse Ox O2 Del Method FiO2 11/22/24 17:51 14 98 40 11/22/24 17:42 Mechanical Ventilation 11/22/24 17:15 97 14 90/68 93 11/22/24 17:00 84 14 78/54 100 11/22/24 16:45 91 14 82/60 99 11/22/24 16:30 103 H 19 H 109/80 99 11/22/24 16:29 50 11/22/24 16:15 105 H 17 108/76 99 11/22/24 16:00 101 H 19 H 92/69 97 11/22/24 15:38 106 H 22 H 118/86 100 11/22/24 15:08 14 100 11/22/24 14:48 127 H 100 Mechanical Ventilation 11/22/24 14:27 140 H 22 H 148/118 Respiratory exam: CTA bilaterally Cardiovascular Exam: regular rate Capillary refill: > 3 Seconds Peripheral pulse strength: 2+ Slightly Diminished Peripheral pulse location: Radial and Pedal Skin exam: turgor normal Date exam was performed: 11/22/24 Time exam was performed: 18:20 Problem List 1. Protein calorie malnutrition: 2. Thrombocytopenia: 3. Transaminitis: 4. Altered mental status: 5. Wernickes encephalopathy: 6. Alcohol withdrawal delirium: 7. Airway intubation performed without difficulty: 8. On mechanically assisted ventilation: 9. High Agitation Sedation Scale (RASS) score minus 4, deep sedation: 10. Alcohol withdrawal seizure: 11. Acute hypoxic respiratory failure:
[2024-11-22] MEDS: norepinephrine 4 MG/250 ML BAG 15 MG IV (18:10)
--- NOTE | 2024-11-22 18:17 | USCV_ITS ---
Anthony Vázquez Age: 69 Gender: M : 1955 Exam Date: 11/22/2024 19:41 Ordering Phys: Mati Talavera MD Technologist: LANDEN [place] [facility] [place]: nstemi, ETOH abuse, AMS, combative in ER, now on vent in ICU-8 BP: 87 / 61 HR: 82 Rhythm: Sinus Technical Quality: Adequate MEASUREMENTS (Male / Female) Normal Values 2D ECHO LV Diastolic Diameter PLAX 4.3 cm 4.2 - 5.9 / 3.9 - 5.3 cm IVS Diastolic Thickness 1.4 cm 0.6 - 1.0 / 0.6 - 0.9 cm IVS Systolic Thickness 1.5 cm LVPW Diastolic Thickness 1.4 cm 0.6 - 1.0 / 0.6 - 0.9 cm LVPW Systolic Thickness 2.0 cm LVOT Diameter 1.8 cm LV Ejection Fraction 2D Teich 61.9 % LV Ejection Fraction MOD 4C 31.3 % LV Ejection Fraction MOD 2C 25.9 % LV Ejection Fraction 2C AL 26.9 % LA Diameter 3.5 cm Aorta at Sinotubular Diameter 3.3 cm IVC Diameter 2.7 cm M-MODE LA Ao Ratio MM 0.9 AV Cusp Separation MM 2.0 cm DOPPLER AV Peak Velocity 106.0 cm/s LVOT Peak Velocity 84.0 cm/s AV Area Cont Eq vti 2.4 cm squared AV Area Cont Eq pk 2.0 cm squared MV Peak Velocity 95.0 cm/s MV Area PHT 4.1 cm squared Mitral E to A Ratio 0.8 TV Peak Velocity 221.5 cm/s TR Peak Velocity 236.0 cm/s TR Peak Gradient 22.3 mmHg TV Peak E Velocity 31.0 cm/s PV Peak Velocity 69.0 cm/s FINDINGS Left Ventricle Normal left ventricular cavity size. Severely decreased left ventricular systolic function. Regional wall motion abnormalities with akinesis of all apical and mid segements with hyperdynamic basal segments consistent with Takotsubo's stress cardiomyopathy versus ischemic cardiomyopathy. EF 27%. Mild left ventricular hypertrophy. Normal diastolic function. Right Ventricle Normal right ventricular size. Mildly decreased right ventricular systolic function. Right Atrium Normal right atrial size. Left Atrium Normal left atrial size. Mitral Valve Structurally normal mitral valve. Mild mitral valve regurgitation. Aortic Valve No aortic valve stenosis. No aortic valve regurgitation. Tricuspid Valve Structurally normal tricuspid valve. Mild tricuspid valve regurgitation. Normal pulmonary pressure. Pulmonic Valve Structurally normal pulmonic valve. No pulmonary valve stenosis. No pulmonic regurgitation. Pericardium No pericardial effusion. Aorta Normal size aortic root and proximal ascending aorta. IVC Dilated IVC with normal inspiratory collapse consistent with RA pressure of 8 mmHg. CONCLUSIONS 1. Severely reduced left ventricular systolic function with EF of 27%. Pattern of regional wall motion abnormality consistent with either stress cardiomyopathy or ischemic cardiomyopathy. 2. Mild RV hypokinesis 3. Mild mitral valve regurgitation 4. Mild concentric left ventricular hypertrophy Javier Solares MD, FACC (Electronically Signed) Final Date: 23 November 2024 13:57 S
--- NOTE | 2024-11-22 18:21 | PC.NURSE ---
BP low, Sadaf Pisano approved switching to versed
[2024-11-22] MEDS: albumin 50 G/200 ML BAG 60 G IV (18:22)
[2024-11-22] MEDS: pantoprazole 40 mg SDV IVP (18:23)
[2024-11-22] MEDS: thiamine 100 mg/mL 2mL SDV IM (18:57)
[2024-11-22 18:58] LABS: Troponin 5 2HR 288.3 ng/L (0-15)
[2024-11-22 18:59] LABS: Troponin 5 2HR Delta 258.3 ABS# (0-10)
[2024-11-22] MEDS: midazolam hcl 100 MG/100 ML BAG IV (19:00)
[2024-11-22 19:04] LABS: Cholesterol 144 mg/dL (0-200); HDL Cholesterol 59 mg/dL (60-100); Thyroid Stimulating Hormone 3.64 uIU/mL (0.27-4.20); Triglycerides 96 mg/dL (0-150)
--- NOTE | 2024-11-22 19:28 | PC.NURSE ---
Versed gtt running at 2 mg/hr at 1900 shift change, bag was not scanned, scanned and corrected in MAR to reflect current rate. Fentanyl gtt running at 100 mcg/hr at 1900 shift change, updated in MAR to reflect current rate. Levophed gtt running at 10 mcg/min at 1900 shift change, updated in MAR to reflect current rate.
--- NOTE | 2024-11-22 19:32 | PC.NURSE ---
Propofol: Propofol gtt paused at 1900 shift change due to switching to versed for sedation. Updated in MAR to reflect current rate.
[2024-11-22 19:59] LABS: Estmated Average Glucose 103; Hemoglobin A1C 5.2 % (4.0-6.0)
[2024-11-22] MEDS: piperacillin-tazobactam 3.375 GM in sodium chloride 0.9% (plus) 50 ML IV (20:44)
--- NOTE | 2024-11-22 21:13 | PHA.VACGOAL ---
Vancomycin Goal - Goal Vancomycin Goal:: 15-20 mg/L Vancomycin Indication:: Other (SEPSIS) - Therapy Current therapy:: Pip/Tazo Day of therpy:: Day [1]of [] . Actual body weight (kg): 71 kg - Data Labs: WBC 7.00 10^3/uL (3.29-11.43) 11/22/24 15:23 RBC 4.00 10^6/uL (3.85-5.65) 11/22/24 15:23 Hgb 14.10 g/dL (11.27-16.99) 11/22/24 15:23 Hct 39.4 % (37-53) 11/22/24 15:23 MCV 98.5 fl (82-101) 11/22/24 15:23 MCH 35.3 pg (27-33) H 11/22/24 15:23 MCHC 35.8 g/dL (30-55) 11/22/24 15:23 RDW 14.4 % (12.1-15.1) 11/22/24 15:23 Sodium 127 mmol/L (136-145) L 11/22/24 15:23 Potassium 3.9 mmol/L (3.5-5.1) 11/22/24 15:23 Chloride 91 mmol/L (98-107) L 11/22/24 15:23 Carbon Dioxide 27 mmol/L (22-29) 11/22/24 15:23 Anion Gap 12.9 (5-19) 11/22/24 15:23 BUN 18 mg/dL (8-23) 11/22/24 15:23 Creatinine 0.6 mg/dL (0.7-1.2) L 11/22/24 15:23 GFR Calculation 134.4 mL/min (90-130) H 11/22/24 15:23 Treatment plan:: new consult Regimen:: New start vancomycin for sepsis. Load dose of 1500 mg ordered. Started on maintenance dose of 1000 mg q8h for goal trough of 15-20 mg/L for sepsis.
--- NOTE | 2024-11-22 21:31 | ECG_ITS ---
[facility]: 2024-[facility]22 Pat Name: Anthony Vázquez Department: Room: [facility] Gender: Male Fern Gatherer: : 1955 Requested By: Tomasa Herron Order Number: [id number] Ad MD: Javier Solares M.D. Measurements Intervals [place] Rate: 84 P: 81 ND: 172 QRS: 78 QRSD: 95 T: 79 QT: 362 QTc: 429 Interpretive Statements SINUS RHYTHM SEPTAL MYOCARDIAL INFARCTION , OF INDETERMINATE AGE [40+ ms Q WAVE IN V1/V2] Compared to ECG 11/22/2024 17:59:18 No significant changes Electronically Signed On 11-23-2024 21:47:09 CDT by Javier Solares M.D. [email or web address]
[2024-11-22 22:03] LABS: PCP Screen Urine Negative (Negative)
[2024-11-22 22:37] LABS: Troponin 5 6HR 301.4 ng/L (0-15); Troponin 5 6HR Delta 271.4 ng/L (0-12)
[2024-11-22] MEDS: fentaNYL 1,000 MCG/100 ML BAG 10 MCG IV (23:41)
[2024-11-23] VITALS (106 sets, daily range): BP systolic 86–151; BP diastolic 49–76; PULSE 68–103; RESP 12–19; TEMP 37.3–38.1; O2SAT 88–100
--- NOTE | 2024-11-23 00:01 | CT_ITS ---
WS: [id number] CT CHEST, ABDOMEN, AND PELVIS TECHNIQUE: Noncontrast CT of the chest, abdomen, and pelvis with coronal and sagittal reformatted images. CLINICAL INFORMATION: ams COMPARISON: None. DLP: 506.[address] scans at [facility] use at least one of these dose optimization techniques: automated exposure control; mA and/or kV adjustment per patient size (includes targeted exams where dose is matched to clinical indication); or iterative reconstruction. CT CHEST: Endotracheal tube. Enteric tube. Aortic calcification. Coronary calcification. Chronic emphysematous changes. Tiny bilateral pleural effusions with patchy infiltrates in the RIGHT greater than LEFT lower lobes. Recommend correlation for pneumonia. Mild thoracic kyphosis. Aneurysmal ascending thoracic aorta measuring 4.[address] ABDOMEN AND PELVIS: Fatty liver. Hepatomegaly. Vicarious excretion of contrast in the gallbladder. Enteric tube with tip in the stomach. Adrenal glands are normal. No hydronephrosis. Fatty atrophy of the pancreas. Hernadez catheter. Sigmoid diverticulosis. No evidence of acute diverticulitis. Colon abuts a shallow RIGHT inguinal hernia although no evidence of entrapment. Vascular calcification. Disc narrowing worse at L4-L5 and L5-S1. CT/[place] [id number] IMPRESSION: 1. Small bilateral pleural effusions with infiltrates in the RIGHT greater [place] n LEFT lower lobe suspicious for pneumonia. 2. Chronic emphysematous changes. 3. No acute findings in the abdomen or pelvis.
[2024-11-23] MEDS: norepinephrine 4 MG/250 ML BAG 22.5 MG IV (03:02)
[2024-11-23 03:33] LABS: Hematocrit 31.8 % (37-53); Hemoglobin 11.00 g/dL (11.27-16.99); Mean Corpuscular HGB Conc 34.6 g/dL (30-55); Mean Corpuscular Hemoglobin 34.3 pg (27-33); Mean Corpuscular Volume 99.1 fl (82-101); Nucleated Red Blood Cells % 0 %; Platelet Count 57 10^3/cmm (157-399); Red Blood Count 3.21 10^6/uL (3.85-5.65); White Blood Count 6.36 10^3/uL (3.29-11.43)
[2024-11-23 03:44] LABS: INR 0.91 (0.8-1.2); Prothrombin Time 12.90 SECONDS (12.1-14.9)
[2024-11-23 03:48] LABS: Ammonia 29 umol/L (16-60); Lactate (Lactic Acid level) 0.9 mmol/L (0.5-2.2)
[2024-11-23 03:57] LABS: Alanine Aminotransferase 72 U/L (0-41); Albumin Level 3.6 g/dL (3.5-5.2); Alkaline Phosphatase 72 U/L (40-130); Anion Gap 13.1 (5-19); Aspartate Amino Transferase 104 U/L (0-40); Blood Urea Nitrogen 11 mg/dL (8-23); Calcium 8.0 mg/dL (8.5-10.5); Carbon Dioxide 25 mmol/L (22-29); Chloride 102 mmol/L (98-107); Creatinine Clr Calc Pharmacy 88.0056; Globulin 1.6 g/dL (1.3-4.6); Glucose 91 mg/dL (65-115); Magnesium 1.4 mg/dL (1.7-2.3); Osmolality Calculated 283 mOsm/kg (285-295); Potassium 3.1 mmol/L (3.5-5.1); Sodium 137 mmol/L (136-145); Total Protein 5.2 g/dL (6.6-8.7)
[2024-11-23 04:01] LABS: NT Pro B Type Natriuretic Pept 1458 pg/mL (0-125); Procalcitonin 0.17 ng/mL (0-0.5)
[2024-11-23] MEDS: albumin 25 G/100 ML BAG 60 G IV ×3 (04:29→19:17)
[2024-11-23] MEDS: piperacillin-tazobactam 3.375 GM in sodium chloride 0.9% (plus) 50 ML IV ×3 (04:34→19:17)
[2024-11-23] MEDS: thiamine 100 mg/mL 2mL SDV 200 MG IVP ×3 (04:34→19:17)
[2024-11-23 05:08] LABS: ABG PCO2 41.8 mmHg (35-45); ABG PH Result 7.41 (7.35-7.45); Arterial Blood Gas Hematocrit 33.3 % (42-52); Blood Gas Allen Test Pos; Blood Gas Operator Identificat gerca; Blood Gas Sample Site Brachial, right; Blood Gas Sample Type Arterial; HCO3 ABG 26.5 mmol/L (22-26); PEEP 5.0 cmH20; PO2 ABG 57.3 mmHg (80.0-100.0); PO2 FiO2 Ratio Arterial Blood 191
[2024-11-23] MEDS: potassium phosphate (mMol PO4) 30 MMOL in sodium chloride 0.9% (100 ml) 100 ML 25 MMOL IV (07:03)
--- NOTE | 2024-11-23 08:24 | XR_ITS ---
WS: [id number] Portable AP semiupright chest, 11/23/2024 Clinical Data: post PICC insertion Comparison: Portable chest, 11/22/2024 Findings: The right PICC line ends in the superior vena cava. No pneumothorax is seen. There are now bilateral patchy lower lobe opacities. The endotracheal tube and nasogastric tube remain in the same position. XR/XR chest 1V portable [id number] Impression: Satisfactory placement of right PICC line.
[2024-11-23] MEDS: fentaNYL 1,000 MCG/100 ML BAG 10 MCG IV ×2 (08:34→19:15)
[2024-11-23] MEDS: multivitamin therapeutic Tablet 1 TAB PO (08:34)
--- NOTE | 2024-11-23 09:15 | PICC.NOTE ---
Triple lumen PICC placed to right basilic vein. Referred to vascular access nurse for PICC placement due to need for vasopressors. Risks and benefits discussed and informed consent obtained via phone from pt son, Spencer. Right arm assessed with right basilic vein measuring 5.5 mm, straight, and apparent best choice for placement. Using sterile technique and MST, right basilic vein accessed x 1 stick. Mid-arm circumference measured 10 cm from right AC 26 cm. Trimmed cath 40 cm with 0 cm external length noted. CXR shows tip in SVC, in good position for use per radiologist. Line secured with stat-lock. Insertion site covered with Biopatch and TSM. Report given to bedside nurse, MAYNOR Tao.
--- NOTE | 2024-11-23 10:29 | P.CONIM_ITS ---
<Statement entered by Kaycee Mckinnon MD - 11/25/24 16:24> Patient was evaluated and cared for in conjunction with an advanced practice practitioner. I personally examined the patient and reviewed the chart and all pertinent data including imaging, telemetry, and laboratory results. I discussed the patient in detail with the advanced practice practitioner. Please see their note for complete H&P testing result and agreed upon plan of care for the patient. 69-year-old male with past medical history significant for continues tobacco abuse alcohol abuse presented with what appeared to be seizure he was intubated, no arrhythmia noted, he was started on pressors because of hypotension and shock. GENERAL: Intubated on vent HEART: Regular S1 and S2. No murmur, rub or gallop. LUNGS: Decreased breath sound bilaterally. CENTRAL NERVOUS SYSTEM: Grossly nonfocal. EXTREMITIES: Lower extremities with out edema bilaterally. Assessment and plan Shock Non-ST ovation CT Possible cardiomyopathy Alcohol abuse Patient presentation is consistent with neurocardiogenic etiology, he is intubated for airway protection and shock X-ray chest is more consistent with pneumonia possible aspirated Troponin elevation in the absence of EKG changes could be secondary to sepsis or from neurocardiogenic etiology due to hyperadrenergic state Continue antibiotic Obtain echocardiogram to assess LV function wall motion abnormality and pulmonary pressures or pericardial effusion Continue to monitor on the monitor in ICU Continue pressors Continue anticoagulation Will continue to monitor patient further plan will be as as per progress the patient. Patient prognosis is guarded Documented by User: DYAN Koehler 11/23/24 10:48 Providers/Reason For Consult 2 Consulting Physician/Specialty*: Dr Iker Mckinnon, interventional cardiology Reason for Consult*: elevated troponin Requesting Physician: Mati Talavera MD Attending Physician: Mati Talavera MD Primary Care Provider: Yao Mckeon MD History of Present Illness History of Present Illness Anthony Vázquez Jr is a 69 year old male with past medical history of alcoholism, Wernicke encephalopathy, thrombocytopenia, transaminitis, possible history of hypertension, is a smoker, no history of diabetes. He had a witnessed seizure, family noted loss of bowel bladder function at the time as well as altered mental status believing he was having a stroke. He had been staying at his family's home and had not had any alcohol since Thursday per the family. He was combative to EMS and emergency room staff, was intubated and sedated. Troponin series: 30->288-> 301. EKG showed early repolarization, sinus tachycardia initially 140 then improved to sinus rhythm in the 80s. Blood pressures have been soft ranging 96-117 systolic. Current ventilator settings AC rate of 14, FiO2 30%, PEEP of 8 Review of Systems 2 Narrative: Unable to obtain ROS patient is intubated and sedated Medications/Allergies Home Medications ?Medication ?Instructions ?Recorded ?Confirmed ?Last Taken ?Type acetaminophen 500 mg tablet 500 mg PO Q6H PRN Pain 11/22/24 02/17/23 History (Tylenol Extra Strength) Allergies Allergy/AdvReac Type Severity Reaction Status Date / Time No Known Allergies Allergy Verified 02/18/23 06:39 Current Medications Generic Name Dose Route Start Last Admin Trade Name Freq PRN Reason Stop Dose Admin Albuterol/Ipratropium 3 ml 11/23/24 07:47 11/23/24 07:56 Ipratropium-Albuterol 3 Ml Neb INHALATION 3 ml Q6H PRN Administration SHORTNESS OF BREATH Enoxaparin Sodium 70 mg 11/22/24 21:30 11/23/24 09:36 Enoxaparin 80 Mg/0.8 Ml Syringe SUBCUT 70 mg Q12H JERMAINE Administration Folic Acid 1 mg 11/23/24 09:00 11/23/24 08:33 Folic Acid 1 Mg Tablet PO 1 mg DAILY JERMAINE Administration Propofol 1,000 mg in 100 mls @ 0 mls/hr 11/22/24 14:30 11/22/24 19:00 Diprivan IV 0 mcg/kg/min .Q0M JERMAINE 0 mls/hr Protocol Titration Per Protocol Fentanyl 1,000 mcg in 100 mls @ 0 mls/hr 11/22/24 16:15 11/23/24 08:34 Sublimaze IV 100 mcg/hr .Q0M JERMAINE 10 mls/hr Protocol Administration Per Protocol Norepinephrine Bitartrate 4 mg in 250 mls @ 0 mls/hr 11/22/24 17:00 11/23/24 06:32 Levophed IV 6 mcg/min .Q0M JERMAINE 22.5 mls/hr Protocol Titration Per Protocol Midazolam HCl 100 mg in 100 mls @ 0 mls/hr 11/22/24 18:30 11/23/24 07:13 Versed IV 5 mg/hr .Q0M JERMAINE 5 mls/hr Protocol Titration Per Protocol Albumin Human 25 g in 100 mls @ 60 mls/hr 11/23/24 04:00 11/23/24 06:32 Albumin IV Infused Q8H JERMAINE Infusion Piperacillin Sod/Tazobactam 50 mls @ 12.5 mls/hr 11/22/24 20:00 11/23/24 09:37 Sod 3.375 gm/ Sodium Chloride IV Infused Q8H JERMAINE Infusion Vancomycin HCl 1,000 mg/ 250 mls @ 250 mls/hr 11/23/24 03:00 11/23/24 04:32 Sodium Chloride IV Infused Q8H JERMAINE Infusion Potassium Phosphate 30 mmol/ 110 mls @ 25 mls/hr 11/23/24 07:00 11/23/24 07:03 Sodium Chloride IV 11/23/24 11:23 25 mls/hr ONCE ONE Administration Multivitamins Therapeutic 1 tab 11/23/24 09:00 11/23/24 08:34 Multivitamin Therapeutic Tablet PO 1 tab DAILY JERMAINE Administration Pantoprazole Sodium 40 mg 11/22/24 17:39 11/22/24 18:23 Pantoprazole 40 Mg Sdv IVP 40 mg Q24H JERMAINE Administration Thiamine HCl 200 mg 11/23/24 04:00 11/23/24 04:34 Thiamine 100 Mg/Ml 2ml Sdv IVP 200 mg Q8H JERMAINE Administration PFSH Acute 2 PFSH: Medical History (Updated 11/25/24 @ 14:25 by Mati Talavera MD) History of alcoholism Hyponatremia Surgical History History of chest tube placement Family History Mother Lung cancer Social History Smoking and tobacco/nicotine status: current every day tobacco/nicotine user Alcohol intake: current Alcohol intake frequency: 3 or more drinks per day Substance/Drug Use: never Vitals/I&O/Wt Last Vital Signs Temp 99.6 F 11/23/24 08:00 Pulse 85 11/23/24 08:15 Resp 15 11/23/24 09:24 BP 92/56 11/23/24 08:15 Pulse Ox 96 11/23/24 09:24 O2 Del Method Mechanical Ventilation 11/23/24 08:00 FiO2 30 11/23/24 09:24 11/22/24 11/23/24 11/23/24 22:59 06:59 14:59 Intake Total 4627.783 / 5507.642 879.859 / 5507.642 1035.9 / 1035.9 Output Total 1200 / 1200 Balance 4627.783 / 4307.642 -320.141 / 4307.642 1035.9 / 1035.9 Weight last 48 hrs Weight 137 lb 12.623 oz Weight 156 lb 8.451 oz Weight 160 lb Physical Exam 2 Narrative: Intubated sedated Const: COMMON NORMALS: no acute distress Chest: COMMONS NORMALS: normal inspection of the chest and normal palpation of entire chest wall CHEST: Yes Symmetrical chest wall rise Resp: COMMON NORMALS: normal respiratory effort, No retractions, No use of accessory muscles and clear to auscultation bilaterally EFFORT & INSPECTION: Yes symmetric chest movement AUSCULTATION: clear to auscultation bilaterally Cardio: COMMON NORMALS: regular rate, regular rhythm, S1 normal heart sound present, S2 normal heart sound present, No gallops present (Cardio), No clicks present (Cardio), No murmurs present (Cardio) and No rub (Cardio) RATE: r egular rate RHYTHM: regular rhythm HEART SOUNDS: S1 normal heart sound present and S2 normal heart sound present PERIPHERAL PULSES: radial pulses present Extremity: COMMON NORMALS: no pedal edema Urinary Catheter Management: Hernadez: Cath Placed During This Visit: yes Reason for Continuing Indwelling Catheter: Accurate Measurement of Urinary Output in Critically Ill Patients Urinary Catheter Date of Insertion: 11/22/24 Urinary Catheter Time of Insertion: 19:00 Data 11/25/24 03:15 11/25/24 03:15 Micro: Microbiology 11/22/24 15:23 Blood Culture - Preliminary Blood SPECIMEN COLLECTED 11/22/24 15:23 Blood Culture - Preliminary Blood SPECIMEN COLLECTED 11/22/24 15:00 Gram Stain - Final Sputum - Endotracheal Tube Aspirate A&P Assessment and plan 1. Altered mental status: 2. Alcohol withdrawal seizure: 3. Transaminitis: 4. Thrombocytopenia: Plan: It is possible the seizure-like event from possible alcohol withdrawal caused elevation in troponin. Will plan on multiple stress test or coronary angiogram depending on results of echocardiogram which is pending read. Currently requiring Levophed for blood pressure support, will avoid beta-brett for now. Will monitor LFTs, platelets and INR (currently normal). PDMP PDMP Reviewed: Not Reviewed Coding Level of Care Code Acute Code for Chg Fwd Diagnoses Altered mental status R41.82 Alcohol withdrawal seizure F10.939; R56.9 Transaminitis R74.01 Thrombocytopenia D69.6 Documented by User: Kaycee Mckinnon MD 11/25/24 16:17 Medications/Allergies Home Medications ?Medication ?Instructions ?Recorded ?Confirmed ?Last Taken ?Type acetaminophen 500 mg tablet 500 mg PO Q6H PRN Pain 11/22/24 02/17/23 History (Tylenol Extra Strength) Allergies Allergy/AdvReac Type Severity Reaction Status Date / Time No Known Allergies Allergy Verified 02/18/23 06:39 PFSH Acute 2 PFSH: Medical History (Updated 11/25/24 @ 14:25 by Mati Talavera MD) History of alcoholism Hyponatremia Surgical History History of chest tube placement Family History Mother Lung cancer Social History Smoking and tobacco/nicotine status: current every day tobacco/nicotine user Alcohol intake: current Alcohol intake frequency: 3 or more drinks per day Substance/Drug Use: never Physical Exam 2 Urinary Catheter Management: Hernadez: Cath Placed During This Visit: yes Data 11/25/24 03:15 11/25/24 03:15 A&P Assessment and plan 1. Altered mental status: 2. Alcohol withdrawal seizure: 3. Transaminitis: 4. Thrombocytopenia: Plan: It is possible the seizure-like event from possible alcohol withdrawal caused elevation in troponin. Will plan on stress test or coronary angiogram depending on results of echocardiogram which is pending read. Currently requiring Levophed for blood pressure support, will avoid beta-brett for now. Will monitor LFTs, platelets and INR (currently normal). PDMP PDMP Reviewed: Not Reviewed Coding Level of Care Code Acute Code for Chg Fwd Diagnoses Altered mental status R41.82 Alcohol withdrawal seizure F10.939; R56.9 Transaminitis R74.01 Thrombocytopenia D69.6
[2024-11-23] MEDS: midazolam hcl 100 MG/100 ML BAG IV (13:13)
--- NOTE | 2024-11-23 15:42 | PM.PN ---
Subjective Subjective: - Overnight events noted - Patient was seen this morning, currently intubated, sedated on mechanical ventilation - Currently in shock on 6 of Levophed - On 40% FiO2 -MAP is 65 -Low-grade temperature overnight - Patient's delta troponin was positive, troponin of 301, with thrombocytopenia platelet count 30,000, after weighing risks and benefits, was started on anticoagulant therapy - This morning his platelet count is 57,000 - No evidence of bleeding on therapeutic Lovenox - Reviewed case with patient's family, discussed evidence of alcohol withdrawal, alcohol withdrawal seizures, plan on continued to patient, NSTEMI, cardiology consultation, concern for ischemic versus alcoholic cardiomyopathy, discussed possible infectious source, he is on broad-spectrum antibiotic therapy, CT chest abdomen pelvis pending, evidence of septic shock as he is on 6 of Levophed with sepsis, will continue to monitor closely - CT chest showing right greater than left lower lobe infiltrate suspicious for pneumonia - Seen this evening, he is on 2 Levophed, good urine output, 30% FiO2 Vitals/I&O/Wt Last Vital Signs Temp 99.9 F H 11/23/24 12:00 Pulse 79 11/23/24 14:15 Resp 14 11/23/24 13:15 BP 111/73 11/23/24 14:15 Pulse Ox 94 11/23/24 14:15 O2 Del Method Mechanical Ventilation 11/23/24 14:00 FiO2 40 11/23/24 14:00 11/23/24 11/23/24 11/23/24 06:59 14:59 22:59 Intake Total 879.859 / 5507.642 1577.087 / 1577.087 121.083 / 1698.170 Output Total 1200 / 1200 Balance -320.141 / 4307.642 1577.087 / 1577.087 121.083 / 1698.170 Weight last 48 hrs Weight 62.5 kg Weight 71 kg Weight 72.575 kg Physical Exam Const: COMMON NORMALS: no acute distress OTHER: Currently intubated, sedated on mechanical ventilation Eye: COMMON NORMALS: Equal, round and reactive pupils present PUPIL: Yes Equal, round and reactive pupils present Resp: COMMON NORMALS: normal respiratory effort, No retractions and No use of accessory muscles AUSCULTATION: wheezes Cardio: COMMON NORMALS: regular rate, regular rhythm, S1 normal heart sound present and S2 normal heart sound present RATE: regular rate RHYTHM: regular rhythm HEART SOUNDS: S1 normal heart sound present and S2 normal heart sound present GI: COMMON NORMALS: Normal to inspection, nondistended, normoactive bowel sounds present and non-tender Extremity: COMMON NORMALS: no pedal edema Neuro: OTHER: Currently intubated, sedated on mechanical ventilation Urinary Catheter Management: Hernadez: Cath Placed During This Visit: yes Reason for Continuing Indwelling Catheter: Accurate Measurement of Urinary Output in Critically Ill Patients Urinary Catheter Date of Insertion: 11/22/24 Urinary Catheter Time of Insertion: 19:00 Quick SOFA Score: Respiratory Rate: 14 Blood Pressure: 109/63 [place] Coma Scale: 10 qSOFA Score: 1 If qSOFA score 2 or greater, continue: PaO2/FiO2 Ratio (mmHg): 191 Blood Pressure Mean: 78 Bilirubin (mg/dl): 1.2 Platelets (x10?/ml): 57 Creatinine (mg/dl): 0.6 SOFA Score: 8 Evaluation: Current stage of sepsis: septic shock Sepsis stage criteria used: [facility] Sep-1 and Sepsis-3 Focused Exam: Vital signs: Temp Pulse Resp BP Pulse Ox O2 Del Method FiO2 11/23/24 14:15 79 111/73 94 11/23/24 14:00 81 136/60 94 Mechanical Ventila tion 40 11/23/24 14:00 79 11/23/24 13:45 78 136/60 94 11/23/24 13:30 79 130/62 95 11/23/24 13:18 90 11/23/24 13:15 74 135/60 95 11/23/24 13:15 14 95 30 11/23/24 13:12 94 15 94 Mechanical Ventila tion 30 11/23/24 13:00 69 135/60 94 11/23/24 12:45 70 143/57 94 11/23/24 12:30 73 130/62 95 11/23/24 12:15 69 133/56 95 11/23/24 12:00 99.9 F H 71 14 130/65 95 Mechanical Ventila tion 40 11/23/24 11:45 75 136/65 95 11/23/24 11:30 72 137/49 95 11/23/24 11:28 14 95 30 11/23/24 11:15 74 137/49 95 11/23/24 11:00 73 137/49 95 11/23/24 10:45 74 137/49 95 11/23/24 10:00 80 14 137/49 97 Mechanical Ventila tion 40 11/23/24 09:45 79 115/76 96 11/23/24 09:30 81 150/55 96 11/23/24 09:24 15 96 30 11/23/24 09:15 83 133/64 96 11/23/24 09:00 81 133/64 95 11/23/24 08:45 92 125/64 92 11/23/24 08:30 86 96/59 100 11/23/24 08:15 85 92/56 94 11/23/24 08:00 99.6 F 90 14 95/59 100 Mechanical Ventila tion 30 11/23/24 08:00 30 11/23/24 07:59 100 16 94 Mechanical Ventila tion 30 11/23/24 07:48 12 92 30 11/23/24 07:45 79 97/63 92 11/23/24 07:30 80 103/60 93 11/23/24 07:15 79 106/57 91 11/23/24 07:00 76 98/60 95 11/23/24 06:45 78 96/59 96 11/23/24 06:30 80 14 86/60 95 Mechanical Ventila tion 30 11/23/24 06:15 77 14 93/58 96 Mechanical Ventila tion 30 11/23/24 06:00 77 14 102/61 96 Mechanical Ventila tion 30 11/23/24 05:45 77 14 97/62 96 Mechanical Ventila tion 30 11/23/24 05:30 78 14 93/57 96 Mechanical Ventila tion 30 11/23/24 05:30 80 11/23/24 05:15 82 14 99/62 96 Mechanical Ventila tion 30 11/23/24 05:00 82 14 91/60 96 Mechanical Ventila tion 30 11/23/24 04:45 80 14 96/59 96 Mechanical Ventila tion 30 11/23/24 04:30 81 14 94/57 96 Mechanical Ventila tion 30 11/23/24 04:15 82 14 100/64 95 Mechanical Ventila tion 30 11/23/24 04:00 99.1 F 86 14 97/63 93 Mechanical Ventila tion 30 Respiratory exam: positive wheezes Cardiovascular exam: regular rate, regular rhythm, S1 normal heart sound and S2 normal heart sound Date exam was performed: 11/23/24 Time exam was performed: 17:35 Sepsis Screen No Definite Risk 11/22/24, 17:15 Respiratory Rate, (12 - 18) 14 breaths/min Today, 16:00 Blood Pressure 109/63 mmHg Today, 16:30 [place] Coma Scale Score 10 Today, 16:00 Quick SOFA Score 1 Today, 15:57 SOFA Score: ABG PO2/FiO2 Ratio 191 Today, 04:56 [place] Coma Scale Score 10 Today, 16:00 Blood Pressure Mean 78 mmHg Today, 16:30 Total Bilirubin, (0.15-1.2) 1.2 mg/dL Today, 03:15 Platelet Count, (157-399) 57 10^3/cmm L Δ Today, 03:15 Creatinine, (0.7-1.2) 0.6 mg/dL L Today, 03:15 SOFA Score 9 Today, 15:57 Data 11/23/24 03:15 11/23/24 03:15 Micro: Microbiology 11/22/24 15:00 Gram Stain - Final Sputum - Endotracheal Tube Aspirate Sputum Culture - Preliminary 11/22/24 15:23 Blood Culture - Preliminary Blood SPECIMEN COLLECTED 11/22/24 15:23 Blood Culture - Preliminary Blood SPECIMEN COLLECTED A&P Assessment and plan 1. Protein calorie malnutrition: 2. Thrombocytopenia: 3. Transaminitis: 4. Altered mental status: 5. Wernickes encephalopathy: 6. Alcohol withdrawal delirium: 7. Airway intubation performed without difficulty: 8. On mechanically assisted ventilation: 9. High Agitation Sedation Scale (RASS) score minus 4, deep sedation: 10. Alcohol withdrawal seizure: 11. Acute hypoxic respiratory failure: 12. Sepsis: 13. Septic shock: Plan: Acute hypoxic respiratory failure -Related to alcohol withdrawal -Bilateral pneumonia -CT chest [place] [id number] IMPRESSION: 1. Small bilateral pleural effusions with infiltrates in the RIGHT greater than LEFT lower lobe suspicious for pneumonia. 2. Chronic emphysematous changes. 3. No acute findings in the abdomen or pelvis. Plan - Currently intubated, sedated on mechanical ventilation - Versed, fentanyl for sedation -Will keep sedated, due to concerns for alcohol withdrawal -Spontaneous breathing trial once appropriate -Vancomycin -Zosyn - DuoNeb - Budesonide Sepsis, septic shock - Secondary to bilateral pneumonia - Blood culture - Sputum culture - Maintain MAP greater than 65 - Continue Levophed Altered mental status -With combative behavior ketamine, in the emergency room -Status post intubation - CT head within normal limits - CTA head and neck CT/CT angio headneck* [id number] IMPRESSION: 1. No significant cervical ICA stenosis. 2. No flow-limiting intracranial stenosis. 3. Approximately 40% chronic stenosis proximal LEFT subclavian artery. RIGHT subclavian artery is patent. - Ammonia levels within normal limits - Likely from alcohol withdrawal, alcohol withdrawal seizure - Concern for possible Warnicke's encephalopathy? Will start patient on high-dose thiamine 200 mg 3 times daily for 5 days - Component related to pneumonia, sepsis Alcohol withdrawal, delirium tremens, alcohol withdrawal seizure - Currently intubated, sedated on mechanical ventilation - Currently on Versed drip - Currently on fentanyl drip - History of Warnicke's encephalopathy, IV thiamine - Banana bag - Folic acid -IV thiamine - Neurochecks, NIH stroke scale, seizure precautions Thrombocytopenia -Likely component of alcoholism - LDH 278, haptoglobin 18(low likely secondary to liver disease), peripheral smear pending - No evidence of hemolysis or bleeding Hyponatremia - Likely beers [place]ia Transaminitis - Likely secondary to alcoholism Hypomagnesemia, monitor NSTEMI - Serial EKGs, short troponins, telemetry monitoring - Cardiac echo CONCLUSIONS 1. Severely reduced left ventricular systolic function with EF of 27%. Pattern of regional wall motion abnormality consistent with either stress cardiomyopathy or ischemic cardiomyopathy. 2. Mild RV hypokinesis 3. Mild mitral valve regurgitation 4. 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 Plan - Aspirin, statin - Therapeutic Lovenox, increased risk of bleeding, monitor closely, - Cardiology consulted Full code SCDs for DVT prophylaxis Lovenox PDMP PDMP Reviewed: Not Reviewed Attestations Medical Necessity Statement*: Patient requires hospitalization, inpatient, greater than 2 midnights for septic shock, sepsis, pneumonia, alcohol withdrawal, NSTEMI, alcoholic versus stress-induced versus ischemic cardiomyopathy,, thrombocytopenia, NSTEMI Coding Level of Care Code Critical Care >/= 30 minutes Critical care time (in minutes): 45 The high probability of a clinically significant, sudden or life threatening deterioration, as referenced in this documentation, required my full and direct attention, intervention and personal management. The critical care time shown is in addition to time spent performing any reported separately billable procedures and includes the following: [x] Data and vital sign review and interpretation [x] Patient assessment, examination and intervention [x] Medication orders and management [x] Patient/Family updates as able [x] Care Coordination and Documentation. Diagnoses Altered mental status R41.82 Alcohol withdrawal seizure F10.939; R56.9 Transaminitis R74.01 Thrombocytopenia D69.6 Protein calorie malnutrition E46 Wernickes encephalopathy E51.2 Alcohol withdrawal delirium F10.931 Airway intubation performed without difficulty Z78.9 On mechanically assisted ventilation Z99.11 High Agitation Sedation Scale (RASS) score minus 4, deep sedation Z78.9 Acute hypoxic respiratory failure J96.01 Sepsis A41.9 Septic shock A41.9; R65.21
[2024-11-23] MEDS: norepinephrine 4 MG/250 ML BAG 7.5 MG IV (16:08)
[2024-11-23] MEDS: lidocaine 1% 5 ML in potassium chloride premix 100 ML 50 ML IV (16:23)
[2024-11-23] MEDS: FUROsemide 10 mg/mL SDV 4mL 40 MG IVP (16:28)
--- OUTSIDE RECORDS SUMMARY | 2024-11-23 17:13 | XMS_ITS | Patient Health Record ---
Author Organization [facility] Address [address] [address] Care Team Providers Care Conductor/Brakeman Name Role Phone Montrell Murry Primary Care Provider Reason For Referral No Information Problems Problem Type SNOMED Code ICD Code Onset Dates Problem Status W/U Status Risk Notes Problem Wernicke's encephalopathy (E51.2) Active confirmed Problem Muscle atrophy (40986946) Muscle wasting and atrophy, not elsewhere classified, unspecified site (M62.50) Active confirmed Problem Deficiency of macronutrients (disorder) (244144119) Protein-calorie malnutrition, unspecified severity (E46) Active confirmed Plan Of Treatment No Information Insurance Providers Payer Name Payer Address Payer Phone Subscriber Number Group Number Insured Name Patient Relationship to Insured Coverage Start Date Coverage End Date [place] [address] [place] [phone] [id number] SAMEER SAEED Self - patient is the insured [place] Medicaid [address] [place] [phone] [id number] SAMEER SAEED Self - patient is the insured
[2024-11-23] MEDS: pantoprazole 40 mg SDV IVP (17:29)
[2024-11-23] MEDS: propofol 1,000 MG/100 ML INJ 2.18 MG IV (21:13)
--- NOTE | 2024-11-23 21:36 | PC.NURSE ---
Addendum entered by KEEGAN Fernandez 11/23/24 21:40: Witnessed waste of propofol. Original Note: Propofol Waste Approximately 75 mls propofol wasted with MAYNOR Sesay.
[2024-11-24] VITALS (75 sets, daily range): BP systolic 84–166; BP diastolic 41–91; PULSE 59–108; RESP 12–29; TEMP 37.1–37.8; O2SAT 91–100
[2024-11-24 02:27] LABS: Hematocrit 29.6 % (37-53); Hemoglobin 9.90 g/dL (11.27-16.99); Mean Corpuscular HGB Conc 33.4 g/dL (30-55); Mean Corpuscular Hemoglobin 34.6 pg (27-33); Mean Corpuscular Volume 103.5 fl (82-101); Nucleated Red Blood Cells % 0 %; Platelet Count 85 10^3/cmm (157-399); Red Blood Count 2.86 10^6/uL (3.85-5.65); White Blood Count 5.68 10^3/uL (3.29-11.43)
[2024-11-24 02:39] LABS: INR 0.98 (0.8-1.2); Prothrombin Time 13.60 SECONDS (12.1-14.9)
[2024-11-24 02:46] LABS: Lactate (Lactic Acid level) 0.7 mmol/L (0.5-2.2)
[2024-11-24 02:47] LABS: Ammonia 22 umol/L (16-60)
[2024-11-24 02:50] LABS: Alanine Aminotransferase 52 U/L (0-41); Albumin Level 3.8 g/dL (3.5-5.2); Alkaline Phosphatase 66 U/L (40-130); Blood Urea Nitrogen 11 mg/dL (8-23); Calcium 7.7 mg/dL (8.5-10.5); Carbon Dioxide 25 mmol/L (22-29); Chloride 102 mmol/L (98-107); Creatinine Clr Calc Pharmacy 83.6965; Globulin 1.3 g/dL (1.3-4.6); Glucose 87 mg/dL (65-115); Magnesium 1.1 mg/dL (1.7-2.3); Osmolality Calculated 283 mOsm/kg (285-295); Sodium 137 mmol/L (136-145); Total Protein 5.1 g/dL (6.6-8.7)
[2024-11-24 02:52] LABS: Anion Gap 13.4 (5-19); Aspartate Amino Transferase 72 U/L (0-40); Potassium 3.4 mmol/L (3.5-5.1)
[2024-11-24] MEDS: fentaNYL 1,000 MCG/100 ML BAG 15 MCG IV ×2 (02:54→09:17)
[2024-11-24 02:58] LABS: NT Pro B Type Natriuretic Pept 2731 pg/mL (0-125); Procalcitonin 0.24 ng/mL (0-0.5)
[2024-11-24] MEDS: piperacillin-tazobactam 3.375 GM in sodium chloride 0.9% (plus) 50 ML IV ×3 (03:51→20:45)
[2024-11-24] MEDS: albumin 25 G/100 ML BAG 60 G IV ×2 (03:51→11:58)
[2024-11-24] MEDS: thiamine 100 mg/mL 2mL SDV 200 MG IVP ×3 (03:51→20:45)
[2024-11-24] MEDS: chlorhexidine gluconate 4% Btl 118 mL 1 APPLIC TOPICAL (04:04)
[2024-11-24 05:10] LABS: ABG PCO2 43.8 mmHg (35-45); ABG PH Result 7.38 (7.35-7.45); Arterial Blood Gas Hematocrit 33.1 % (42-52); Blood Gas Allen Test Pos; Blood Gas Sample Site Radial, right; Blood Gas Sample Type Arterial; Blood Gas Tidal Volume 0.45; HCO3 ABG 26.0 mmol/L (22-26); PEEP 5.0 cmH20; PO2 ABG 61.7 mmHg (80.0-100.0); PO2 FiO2 Ratio Arterial Blood 205
[2024-11-24] MEDS: midazolam hcl 100 MG/100 ML BAG 6 MG IV (06:12)
[2024-11-24] MEDS: multivitamin therapeutic Tablet 1 TAB PO (08:00)
[2024-11-24] MEDS: magnesium sulfate premix 2 GM/50 ML PIGGYBACK IV (08:21)
[2024-11-24] MEDS: dexmedeTOMIDine 0.9 % NaCL 400 MCG/100 ML PREMIX IV (08:25)
--- NOTE | 2024-11-24 08:55 | PC.NURSE ---
Addendum entered by Umang Alvarado RN 11/24/24 09:08: This nurse witnessed MAYNOR Tao waste the propofol. Original Note: Wasted 74.676 mL of propofol, MAYNOR Jefferson witnessed.
--- NOTE | 2024-11-24 11:42 | P.PN_ITS ---
<Statement entered by Kaycee Mckinnon MD - 11/25/24 15:50> Patient was evaluated and cared for in conjunction with an advanced practice practitioner. I personally examined the patient and reviewed the chart and all pertinent data including imaging, telemetry, and laboratory results. I discussed the patient in detail with the advanced practice practitioner. Please see their note for complete H&P testing result and agreed upon plan of care for the patient. Subjective 2 Subjective: He remains intubated and sedated overnight, Levophed has been weaned off and blood pressures are stable. Echocardiogram revealed probable Takotsubo cardiomyopathy with LVEF 27%, mild RV hypokinesis. Vitals/I&O/Wt Last Vital Signs Temp 100.1 F H 11/24/24 08:00 Pulse 62 11/24/24 10:30 Resp 12 11/24/24 11:33 BP 116/59 11/24/24 10:30 Pulse Ox 100 11/24/24 11:33 O2 Del Method Mechanical Ventilation 11/24/24 10:00 FiO2 30 11/24/24 11:33 11/23/24 11/24/24 11/24/24 22:59 06:59 14:59 Intake Total 930.646 / 3091.025 333.292 / 3091.025 628.275 / 628.275 Output Total 1675 / 2225 550 / 2225 Balance -744.354 / 866.025 -216.708 / 866.025 628.275 / 628.275 Weight last 48 hrs Weight 134 lb 7.712 oz Weight 137 lb 12.623 oz Weight 156 lb 8.451 oz Weight 160 lb Physical Exam 2 Chest: COMMONS NORMALS: normal inspection of the chest Resp: COMMON NORMALS: clear to auscultation bilaterally AUSCULTATION: clear to auscultation bilaterally OTHER: intubated Cardio: COMMON NORMALS: regular rate, regular rhythm, S1 normal heart sound present, S2 normal heart sound present, No murmurs present (Cardio) and No rub (Cardio) RATE: regular rate RHYTHM: regular rhythm HEART SOUNDS: S1 normal heart sound present and S2 normal heart sound present Extremity: GENERAL: No edema Urinary Catheter Management: Hernadez: Cath Placed During This Visit: yes Reason for Continuing Indwelling Catheter: Accurate Measurement of Urinary Output in Critically Ill Patients Urinary Catheter Date of Insertion: 11/22/24 Urinary Catheter Time of Insertion: 19:00 Data 11/24/24 02:15 11/24/24 02:15 Micro: Microbiology 11/22/24 15:00 Gram Stain - Final Sputum - Endotracheal Tube Aspirate Sputum Culture - Preliminary 11/22/24 15:23 Blood Culture - Preliminary Blood NEGATIVE TO DATE 11/22/24 15:23 Blood Culture - Preliminary Blood NEGATIVE TO DATE A&P Assessment and plan 1. Alcohol withdrawal delirium: 2. Sepsis: 3. Alcohol withdrawal seizure: 4. Acute hypoxic respiratory failure: 5. Takotsubo cardiomyopathy: 6. Systolic heart failure: Plan: We discussed with the patient's son who is at the bedside, the state of the patient prior to the seizure. He has been a longtime smoker, using alcohol in larger amounts, had never had a seizure prior to this episode where he had been without alcohol for several days. He had never communicated any chest pain to his family. There has not been any arrhythmias noted on telemetry or twelve- lead EKG monitoring. Plan for him with the hospitalist service is to extubate today. He will require a coronary angiogram to determine the nature of the cardiomyopathy however early interventional strategy is not advisable as this is not believed to be an ACS presentation. He has a possible pneumonia and plan is to cover with antibiotics today. Recommend further recovery from a medical standpoint prior to coronary angiogram. Also noted decreased hemoglobin 11 yesterday to 9.9 today, possibly dilutional as he did receive 2 L of IV fluid and 600 mL of albumin as well. Recommend recheck CBC later today. Magnesium replacement has been given, mag 1.1 Once extubated and off sedating medications will trend blood pressure, if we are able we will start metoprolol succinate 12.5 mg daily, to reduce catecholamine response. Long-term we will plan for Entresto or JOSE depending on renal and blood pressure response. PDMP PDMP Reviewed: Not Reviewed Attestations 2 Medical Necessity Statement*: Cardiomyopathy, ischemic workup Coding Level of Care Code Acute Code for g Fwd Diagnoses Alcohol withdrawal delirium F10.931 Sepsis A41.9 Alcohol withdrawal seizure F10.939; R56.9 Acute hypoxic respiratory failure J96.01 Takotsubo cardiomyopathy I51.81 Systolic heart failure I50.20
[2024-11-24] MEDS: FUROsemide 10 mg/mL SDV 4mL 40 MG IVP (12:26)
[2024-11-24] MEDS: potassium chloride premix 100 ML 25 MEQ IV (12:53)
--- NOTE | 2024-11-24 13:54 | PC.NURSE ---
Addendum entered by Umang Alvarado RN 11/24/24 13:57: This nurse witnessed MAYNOR Tao waste fentanyl and versed. Original Note: 1340 -- Extubated per RT, Dr. Talavera in ICU, placed on 3L NC. Tolerated well. Restraints discontinued. 75.875mL of fentanyl wasted and 79.567mL of versed wasted. Witnessed per MAYNOR Jefferson.
--- NOTE | 2024-11-24 13:59 | P.PN_ITS ---
Subjective 2 Subjective: Patient was seen this morning, temperature 100.1, 30% hyponatremia, normotensive, is off Levophed, discussed with nursing staff continues with his breathing trial, wean sedation - Sedation weaning, off, following comma nds - Off sedation, following all commands, spontaneous trial - 40 IV Lasix - Patient is doing well on spontaneous b reathing trial, follow commands, discussed with family bedside risk benefits of extubation, high risk of reintubation, agreed to proceed - Patient was extubated, to room air, he is following commands, has a good cough, no evidence of respiratory distress, good mentation Vitals/I&O/Wt Last Vital Signs Temp 99.9 F H 11/24/24 12:00 Pulse 76 11/24/24 13:24 Resp 20 H 11/24/24 13:21 BP 138/68 11/24/24 12:30 Pulse Ox 98 11/24/24 13:21 O2 Del Method Mechanical Ventilation 11/24/24 13:21 FiO2 30 11/24/24 13:21 11/23/24 11/24/24 11/24/24 22:59 06:59 14:59 Intake Total 930.646 / 2507.733 333.292 / 2841.025 740.102 / 740.102 Output Total 1675 / 1675 550 / 2225 Balance -744.354 / 832.733 -216.708 / 616.025 740.102 / 740.102 Weight last 48 hrs Weight 61 kg Weight 62.5 kg Weight 71 kg Weight 72.575 kg Physical Exam 2 Const: COMMON NORMALS: no acute distress ORIENTATION/CONSCIOUSNESS: Yes awake, Yes oriented to person and Yes oriented to place; not oriented to time OTHER: After extubation he is alert oriented to person, to place, not to time he can follow commands, has a good cough Resp: COMMON NORMALS: normal respiratory effort, No retractions and No use of accessory muscles AUSCULTATION: crackles Cardio: COMMON NORMALS: regular rate, regular rhythm, S1 normal heart sound present and S2 normal heart sound present RATE: regular rate RHYTHM: r egular rhythm HEART SOUNDS: S1 normal heart sound present and S2 normal heart sound present GI: COMMON NORMALS: Normal to inspection, nondistended, normoactive bowel sounds present and non-tender Extremity: COMMON NORMALS: no pedal edema Neuro: SENSORIUM/ORIENTATION: Yes oriented to person, Yes oriented to place and No oriented to time Urinary Catheter Management: Hernadez: Cath Placed During This Visit: yes Reason for Continuing Indwelling Catheter: Accurate Measurement of Urinary Output in Critically Ill Patients Urinary Catheter Date of Insertion: 11/22/24 Urinary Catheter Time of Insertion: 19:00 Data 11/24/24 02:15 11/24/24 02:15 Micro: Microbiology 11/22/24 15:00 Gram Stain - Final Sputum - Endotracheal Tube Aspirate Sputum Culture - Preliminary 11/22/24 15:23 Blood Culture - Preliminary Blood NEGATIVE TO DATE 11/22/24 15:23 Blood Culture - Preliminary Blood NEGATIVE TO DATE A&P Assessment and plan 1. Protein calorie malnutrition: 2. Thrombocytopenia: 3. Transaminitis: 4. Altered mental status: 5. Wernickes encephalopathy: 6. Alcohol withdrawal delirium: 7. Airway intubation performed without difficulty: 8. On mechanically assisted ventilation: 9. High Agitation Sedation Scale (RASS) score minus 4, deep sedation: 10. Alcohol withdrawal seizure: 11. Acute hypoxic respiratory failure: 12. Sepsis: 13. Septic shock: Plan: Acute hypoxic respiratory failure -Related to alcohol withdrawal -Bilateral pneumonia -CT chest [place] [id number] IMPRESSION: 1. Small bilateral pleural effusions with infiltrates in the RIGHT greater than LEFT lower lobe suspicious for pneumonia. 2. Chronic emphysematous changes. 3. No acute findings in the abdomen or pelvis. -S/p extubation 11/24/2024 Plan - Extubated to room air, - Monitor respiratory status -Vancomycin -Zosyn - DuoNeb - Budesonide Sepsis, septic shock, resolved - Secondary to bilateral pneumonia - Blood culture - Sputum culture - Maintain MAP greater than 65 - Continue Levophed Altered mental status resolving -With combative behavior ketamine, in the emergency room -Status post intubation - CT head within normal limits - CTA head and neck CT/CT angio headneck* [id number] IMPRESSION: 1. No significant cervical ICA stenosis. 2. No flow-limiting intracranial stenosis. 3. Approximately 40% chronic stenosis proximal LEFT subclavian artery. RIGHT subclavian artery is patent. - Ammonia levels within normal limits - Likely from alcohol withdrawal, alcohol withdrawal seizure - Concern for possible Warnicke's encephalopathy? Will start patient on high- dose thiamine 200 mg 3 times daily for 5 days - Component related to pneumonia, sepsis Alcohol withdrawal, delirium tremens, alcohol withdrawal seizure - Currently intubated, sedated on mechanical ventilation, extubated - Currently on Versed drip off - Currently on fentanyl drip off - History of Warnicke's encephalopathy, IV thiamine -IV Ativan - Banana bag - Folic acid -IV thiamine - Neurochecks, NIH stroke scale, seizure precautions Thrombocytopenia -Likely component of alcoholism - LDH 278, haptoglobin 18(low likely secondary to liver disease), peripheral smear pending - No evidence of hemolysis or bleeding Hyponatremia - Likely beers [place]ia Transaminitis - Likely secondary to alcoholism Hypomagnesemia, monitor NSTEMI - Serial EKGs, short troponins, telemetry monitoring - Cardiac echo CONCLUSIONS 1. Severely reduced left ventricular systolic function with EF of 27%. Pattern of regional wall motion abnormality consistent with either stress cardiomyopathy or ischemic cardiomyopathy. 2. Mild RV hypokinesis 3. Mild mitral valve regurgitation 4. 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 Plan - Aspirin, statin - Therapeutic Lovenox, increased risk of bleeding, monitor closely, - Cardiology consulted - Plan on possible coronary angiography tomorrow Full code SCDs for DVT prophylaxis Lovenox PDMP PDMP Reviewed: Not Reviewed Attestations 2 Medical Necessity Statement*: Patient requires hospitalization acute hypoxic respiratory failure, NSTEMI, sepsis, alcohol drawl, Coding Level of Care Code Critical Care >/= 30 minutes Critical care time (in minutes): 45 The high probability of a clinically significant, sudden or life threatening deterioration, as referenced in this documentation, required my full and direct attention, intervention and personal management. The critical care time shown is in addition to time spent performing any reported separately billable procedures and includes the following: [x] Data and vital sign review and interpretation [x ] Patient assessment, examination and intervention [x] Medication orders and management [x] Patient/Family updates as able [x] Care Coordination and Documentation. Diagnoses Protein calorie malnutrition E46 Thrombocytopenia D69.6 Transaminitis R74.01 Altered mental status R41.82 Wernickes encephalopathy E51.2 Alcohol withdrawal delirium F10.931 Airway intubation performed without difficulty Z78.9 On mechanically assisted ventilation Z99.11 High Agitation Sedation Scale (RASS) score minus 4, deep sedation Z78.9 Alcohol withdrawal seizure F10.939; R56.9 Acute hypoxic respiratory failure J96.01 Sepsis A41.9 Septic shock A41.9; R65.21
[2024-11-24] MEDS: pantoprazole 40 mg SDV IVP (17:33)
[2024-11-24] MEDS: dexmedeTOMIDine 0.9 % NaCL 400 MCG/100 ML PREMIX 7.63 MCG IV (22:13)
[2024-11-25] VITALS (43 sets, daily range): BP systolic 108–161; BP diastolic 62–89; PULSE 73–96; RESP 16–36; TEMP 36.8–37.2; O2SAT 85–98
[2024-11-25] MEDS: chlorhexidine gluconate 4% Btl 118 mL 1 APPLIC TOPICAL (02:31)
[2024-11-25 03:32] LABS: Hematocrit 31.7 % (37-53); Hemoglobin 11.30 g/dL (11.27-16.99); Mean Corpuscular HGB Conc 35.6 g/dL (30-55); Mean Corpuscular Hemoglobin 34.3 pg (27-33); Mean Corpuscular Volume 96.4 fl (82-101); Nucleated Red Blood Cells % 0 %; Platelet Count 137 10^3/cmm (157-399); Red Blood Count 3.29 10^6/uL (3.85-5.65); White Blood Count 5.68 10^3/uL (3.29-11.43)
[2024-11-25 03:44] LABS: INR 0.92 (0.8-1.2); Prothrombin Time 13.00 SECONDS (12.1-14.9)
[2024-11-25 03:51] LABS: Alanine Aminotransferase 50 U/L (0-41); Albumin Level 4.1 g/dL (3.5-5.2); Alkaline Phosphatase 85 U/L (40-130); Anion Gap 17.2 (5-19); Aspartate Amino Transferase 49 U/L (0-40); Blood Urea Nitrogen 10 mg/dL (8-23); Calcium 8.6 mg/dL (8.5-10.5); Carbon Dioxide 25 mmol/L (22-29); Chloride 98 mmol/L (98-107); Creatinine Clr Calc Pharmacy 82.9361; Globulin 2.2 g/dL (1.3-4.6); Glucose 112 mg/dL (65-115); Magnesium 1.4 mg/dL (1.7-2.3); Osmolality Calculated 284 mOsm/kg (285-295); Potassium 3.2 mmol/L (3.5-5.1); Sodium 137 mmol/L (136-145); Total Protein 6.3 g/dL (6.6-8.7)
[2024-11-25 03:52] LABS: Lactate (Lactic Acid level) 0.7 mmol/L (0.5-2.2)
[2024-11-25 04:09] LABS: NT Pro B Type Natriuretic Pept 4599 pg/mL (0-125); Procalcitonin 0.27 ng/mL (0-0.5)
[2024-11-25] MEDS: piperacillin-tazobactam 3.375 GM in sodium chloride 0.9% (plus) 50 ML IV ×3 (05:00→20:23)
[2024-11-25] MEDS: thiamine 100 mg/mL 2mL SDV 200 MG IVP ×3 (05:00→20:24)
[2024-11-25] MEDS: metoprolol succinate ER (24 HR) 25 mg Tablet 12.5 MG PO (08:11)
[2024-11-25] MEDS: magnesium sulfate premix 1 GM/100 ML PIGGYBACK IV (08:11)
[2024-11-25] MEDS: multivitamin therapeutic Tablet 1 TAB PO (08:11)
--- NOTE | 2024-11-25 08:46 | P.PN_ITS ---
<Statement entered by Kaycee Mckinnon MD - 11/25/24 15:51> Patient was evaluated and cared for in conjunction with an advanced practice practitioner. I personally examined the patient and reviewed the chart and all pertinent data including imaging, telemetry, and laboratory results. I discussed the patient in detail with the advanced practice practitioner. Please see their note for complete H&P testing result and agreed upon plan of care for the patient. Subjective 2 Subjective: He was extubated yesterday, sitting up in the chair this morning. He feels well overall. No chest pain. He is on 2 L nasal cannula, no shortness of breath at rest. He appears euvolemic. Blood pressure after extubation in the 150-160 systolic range. Will start metoprolol succinate 12.5 mg daily. Depending on blood pressure on metoprolol, may start Entresto low-dose. Vitals/I&O/Wt Last Vital Signs Temp 98.2 F 11/25/24 07:00 Pulse 77 11/25/24 08:39 Resp 18 11/25/24 08:34 BP 147/89 11/25/24 08:00 Pulse Ox 95 11/25/24 08:34 O2 Del Method Nasal Cannula 11/25/24 08:34 O2 Flow Rate 2 11/25/24 08:34 FiO2 30 11/24/24 13:21 11/24/24 11/25/24 11/25/24 22:59 06:59 14:59 Intake Total 815.53 / 1892.383 86.751 / 1892.383 29.283 / 29.283 Output Total 3525 / 4425 900 / 4425 Balance -2709.47 / -2532.617 -813.249 / -2532.617 29.283 / 29.283 Weight last 48 hrs Weight 132 lb 2.321 oz Weight 134 lb 7.712 oz Physical Exam 2 Const: COMMON NORMALS: no acute distress and patient oriented x3 GENERAL APPEARANCE: cooperative and comfortable ORIENTATION/CONSCIOUSNESS: Yes awake, Yes oriented to person, Yes oriented to place and Yes oriented to time Chest: COMMONS NORMALS: normal inspection of the chest and normal palpation of entire chest wall CHEST: Yes Symmetrical chest wall rise Resp: COMMON NORMALS: normal respiratory effort, No retractions, No use of accessory muscles and clear to auscultation bilaterally EFFORT & INSPECTION: Yes symmetric chest movement AUSCULTATION: clear to auscultation bilaterally Cardio: COMMON NORMALS: regular rate, regular rhythm, S1 normal heart sound present, S2 normal heart sound present, No gallops present (Cardio), No clicks present (Cardio), No murmurs present (Cardio) and No rub (Cardio) RATE: r egular rate RHYTHM: regular rhythm HEART SOUNDS: S1 normal heart sound present and S2 normal heart sound present PERIPHERAL PULSES: radial pulses present Extremity: COMMON NORMALS: no pedal edema Neuro: COMMON NORMALS: patient oriented x3 and moves all extremities S ENSORIUM/ORIENTATION: Yes oriented to person, Yes oriented to place and Yes oriented to time Urinary Catheter Management: Hernadez: Cath Placed During This Visit: yes Reason for Continuing Indwelling Catheter: Accurate Measurement of Urinary Output in Critically Ill Patients Urinary Catheter Date of Insertion: 11/22/24 Urinary Catheter Time of Insertion: 19:00 Data 11/25/24 03:15 11/25/24 03:15 Micro: Microbiology 11/22/24 15:00 Gram Stain - Final Sputum - Endotracheal Tube Aspirate Sputum Culture - Preliminary A&P Assessment and plan 1. Takotsubo cardiomyopathy: 2. Systolic heart failure: 3. Transaminitis: 4. Sepsis: 5. Alcohol withdrawal seizure: Plan: Will continue to observe recovery from pneumonia, possible coronary angiogram over the weekend. Continue aspirin, statin. PDMP PDMP Reviewed: Not Reviewed Attestations 2 Medical Necessity Statement*: Ischemic workup, new onset CHF Coding Level of Care Code Acute Code for [facility] Diagnoses Takotsubo cardiomyopathy I51.81 Systolic heart failure I50.20 Transaminitis R74.01 Sepsis A41.9 Alcohol withdrawal seizure F10.939; R56.9
--- NOTE | 2024-11-25 09:56 | PC.SOCIAL ---
IMM Update Updated pt on IMM. No questions voiced. Provided pt a copy. Initialed, dated, & timed a copy & placed in chart.
--- NOTE | 2024-11-25 14:20 | P.PN_ITS ---
Subjective 2 Subjective: - Patient was seen this morning, current ly alert oriented x 3, he follows all commands, he is sitting up in a chair, on 2 L, denies any headache, blurry vision, nausea, vomiting, does report shortness of breath does have a cough, discussed IV diuresis today, PT OT, speech therapy eval, patient's family at the bedside, and they are in agreement, plan on continue IV diuresis, possible coronary angiography based on clinical progress Vitals/I&O/Wt Last Vital Signs Temp 98.2 F 11/25/24 07:00 Pulse 77 11/25/24 10:00 Resp 25 H 11/25/24 10:00 BP 121/69 11/25/24 10:00 Pulse Ox 94 11/25/24 10:00 O2 Del Method Nasal Cannula 11/25/24 10:00 O2 Flow Rate 2 11/25/24 10:00 FiO2 30 11/24/24 13:21 11/24/24 11/25/24 11/25/24 22:59 06:59 14:59 Intake Total 815.53 / 1805.632 86.751 / 1892.383 335.891 / 335.891 Output Total 3525 / 3525 900 / 4425 Balance -2709.47 / -1719.368 -813.249 / -2532.617 335.891 / 335.891 Weight last 48 hrs Weight 59.94 kg Weight 61 kg Physical Exam 2 Const: COMMON NORMALS: no acute distress and patient oriented x3 HENMT: COMMON NORMALS: normocephalic HEAD & SCALP: normocephalic Eye: COMMON NORMALS: Equal, round and reactive pupils present PUPIL: Yes Equal, round and reactive pupils present Resp: COMMON NORMALS: normal respiratory effort, No retractions and No use of accessory muscles AUSCULTATION: crackles and wheezes Cardio: COMMON NORMALS: regular rate, regular rhythm, S1 normal heart sound present and S2 normal heart sound present RATE: regular rate RHYTHM: r egular rhythm HEART SOUNDS: S1 normal heart sound present and S2 normal heart sound present GI: COMMON NORMALS: Normal to inspection, nondistended, normoactive bowel sounds present and non-tender Extremity: NARRATIVE EXTREMITY EXAM: 1+ edema Neuro: COMMON NORMALS: patient oriented x3, CN's II-XII intact bilaterally and moves all extremities Urinary Catheter Management: Hernadez: Cath Placed During This Visit: yes Reason for Continuing Indwelling Catheter: Accurate Measurement of Urinary Output in Critically Ill Patients Urinary Catheter Date of Insertion: 11/22/24 Urinary Catheter Time of Insertion: 19:00 Data 11/25/24 03:15 11/25/24 03:15 Micro: Microbiology 11/22/24 15:00 Gram Stain - Final Sputum - Endotracheal Tube Aspirate Sputum Culture - Preliminary A&P Assessment and plan 1. Protein calorie malnutrition: 2. Thrombocytopenia: 3. Transaminitis: 4. Altered mental status: 5. Wernickes encephalopathy: 6. Alcohol withdrawal delirium: 7. Airway intubation performed without difficulty: 8. On mechanically assisted ventilation: 9. High Agitation Sedation Scale (RASS) score minus 4, deep sedation: 10. Alcohol withdrawal seizure: 11. Acute hypoxic respiratory failure: 12. Sepsis: 13. Septic shock: 14. Systolic CHF: Plan: Acute hypoxic respiratory failure -Related to alcohol withdrawal -Bilateral pneumonia -CT chest [place] [id number] IMPRESSION: 1. Small bilateral pleural effusions with infiltrates in the RIGHT greater than LEFT lower lobe suspicious for pneumonia. 2. Chronic emphysematous changes. 3. No acute findings in the abdomen or pelvis. -S/p extubation 11/24/2024 - Now with fluid overload, elevated BNP, systolic CHF Plan - Extubated to room air, - Monitor respiratory status -Vancomycin -Zosyn -IV Lasix - DuoNeb - Budesonide Systolic CHF, EF 27% - IV diuresis Sepsis, septic shock, resolved - Secondary to bilateral pneumonia - Blood culture - Sputum culture - Maintain MAP greater than 65 - Continue Levophed Altered mental status resolving -With combative behavior ketamine, in the emergency room -Status post intubation - CT head within normal limits - CTA head and neck CT/CT angio headneck* [id number] IMPRESSION: 1. No significant cervical ICA stenosis. 2. No flow-limiting intracranial stenosis. 3. Approximately 40% chronic stenosis proximal LEFT subclavian artery. RIGHT subclavian artery is patent. - Ammonia levels within normal limits - Likely from alcohol withdrawal, alcohol withdrawal seizure - Concern for possible Warnicke's encephalopathy? Will start patient on high- dose thiamine 200 mg 3 times daily for 5 days - Component related to pneumonia, sepsis Alcohol withdrawal, delirium tremens, alcohol withdrawal seizure - Currently intubated, sedated on mechanical ventilation, extubated - Currently on Versed drip off - Currently on fentanyl drip off - History of Warnicke's encephalopathy, IV thiamine -IV Ativan - Banana bag - Folic acid -IV thiamine - Neurochecks, NIH stroke scale, seizure precautions Thrombocytopenia -Likely component of alcoholism - LDH 278, haptoglobin 18(low likely secondary to liver disease), peripheral smear pending - No evidence of hemolysis or bleeding Hyponatremia - Likely beers [place] Transaminitis - Likely secondary to alcoholism Hypomagnesemia, monitor NSTEMI - Serial EKGs, short troponins, telemetry monitoring - Cardiac echo CONCLUSIONS 1. Severely reduced left ventricular systolic function with EF of 27%. Pattern of regional wall motion abnormality consistent with either stress cardiomyopathy or ischemic cardiomyopathy. 2. Mild RV hypokinesis 3. Mild mitral valve regurgitation 4. 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 Plan - Aspirin, statin - Therapeutic Lovenox, increased risk of bleeding, monitor closely, - Cardiology consulted - Plan on possible coronary angiography on Thursday Full code SCDs for DVT prophylaxis Lovenox Plan for today IV diuresis, PT OT, up into a chair, continue to monitor for alcohol withdrawals, continue IV antibiotics, PDMP PDMP Reviewed: Not Reviewed Attestations 2 Medical Necessity Statement*: Patient requires hospitalization for alcohol withdrawal, NSTEMI, systolic CHF, respiratory failure, pneumonia Diagnoses Protein calorie malnutrition E46 Thrombocytopenia D69.6 Transaminitis R74.01 Altered mental status R41.82 Wernickes encephalopathy E51.2 Alcohol withdrawal delirium F10.931 Airway intubation performed without difficulty Z78.9 On mechanically assisted ventilation Z99.11 High Agitation Sedation Scale (RASS) score minus 4, deep sedation Z78.9 Alcohol withdrawal seizure F10.939; R56.9 Acute hypoxic respiratory failure J96.01 Sepsis A41.9 Septic shock A41.9; R65.21 Systolic CHF I50.20
[2024-11-25] MEDS: FUROsemide 10 mg/mL SDV 4mL 40 MG IVP (14:36)
[2024-11-25] MEDS: lidocaine 1% 5 ML in potassium chloride premix 100 ML 52.5 ML IV (14:36)
[2024-11-25] MEDS: pantoprazole 40 mg SDV IVP (17:58)
[2024-11-26] VITALS (51 sets, daily range): BP systolic 88–135; BP diastolic 58–84; PULSE 80–120; RESP 16–35; TEMP 36.8–36.9; O2SAT 89–97
[2024-11-26] MEDS: chlorhexidine gluconate 4% Btl 118 mL 1 APPLIC TOPICAL (02:53)
[2024-11-26] MEDS: piperacillin-tazobactam 3.375 GM in sodium chloride 0.9% (plus) 50 ML IV ×3 (04:47→21:12)
[2024-11-26] MEDS: thiamine 100 mg/mL 2mL SDV 200 MG IVP ×3 (04:48→21:12)
[2024-11-26 05:09] LABS: Hematocrit 34.0 % (37-53); Hemoglobin 12.00 g/dL (11.27-16.99); Mean Corpuscular HGB Conc 35.3 g/dL (30-55); Mean Corpuscular Hemoglobin 34.1 pg (27-33); Mean Corpuscular Volume 96.6 fl (82-101); Nucleated Red Blood Cells % 0 %; Platelet Count 180 10^3/cmm (157-399); Red Blood Count 3.52 10^6/uL (3.85-5.65); White Blood Count 6.23 10^3/uL (3.29-11.43)
[2024-11-26 05:32] LABS: Albumin Level 4.3 g/dL (3.5-5.2); Alkaline Phosphatase 99 U/L (40-130); Blood Urea Nitrogen 10 mg/dL (8-23); Calcium 9.0 mg/dL (8.5-10.5); Carbon Dioxide 29 mmol/L (22-29); Chloride 93 mmol/L (98-107); Creatinine Clr Calc Pharmacy 82.3988; Globulin 1.9 g/dL (1.3-4.6); Glucose 103 mg/dL (65-115); Osmolality Calculated 283 mOsm/kg (285-295); Sodium 137 mmol/L (136-145); Total Protein 6.2 g/dL (6.6-8.7)
[2024-11-26 05:38] LABS: Alanine Aminotransferase 44 U/L (0-41); Anion Gap 19.1 (5-19); Aspartate Amino Transferase 42 U/L (0-40); Potassium 4.1 mmol/L (3.5-5.1)
[2024-11-26 05:41] LABS: NT Pro B Type Natriuretic Pept 6623 pg/mL (0-125)
[2024-11-26] MEDS: multivitamin therapeutic Tablet 1 TAB PO (09:44)
[2024-11-26] MEDS: metoprolol succinate ER (24 HR) 25 mg Tablet 12.5 MG PO (09:44)
[2024-11-26] MEDS: FUROsemide 10 mg/mL SDV 4mL 40 MG IVP (09:48)
--- NOTE | 2024-11-26 14:01 | P.PN_ITS ---
Subjective 2 Subjective: Patient was seen this morning, currently alert oriented x 3, following all commands, currently sitting up in a chair, he is requiring 1 L, does report shortness of breath, edema, no chest pain, no palpitations, no lightheadedness, dizziness, no abdominal pain Vitals/I&O/Wt Last Vital Signs Temp 98.4 F 11/26/24 02:00 Pulse 102 H 11/26/24 13:00 Resp 23 H 11/26/24 13:00 BP 128/79 11/26/24 12:00 Pulse Ox 93 11/26/24 13:00 O2 Del Method Room Air 11/26/24 08:57 O2 Flow Rate 2 11/25/24 18:00 FiO2 30 11/24/24 13:21 11/25/24 11/26/24 11/26/24 22:59 06:59 14:59 Intake Total 895 / 1331.656 300 / 1631.656 650 / 650 Output Total 1650 / 1650 950 / 2600 Balance -755 / -318.344 -650 / -968.344 650 / 650 Weight last 48 hrs Weight 59.94 kg Weight 59.94 kg Physical Exam 2 Const: COMMON NORMALS: no acute distress and patient oriented x3 Resp: COMMON NORMALS: normal respiratory effort, No retractions and No use of accessory muscles AUSCULTATION: crackles Cardio: COMMON NORMALS: regular rate, regular rhythm, S1 normal heart sound present and S2 normal heart sound present RATE: regular rate RHYTHM: r egular rhythm HEART SOUNDS: S1 normal heart sound present and S2 normal heart sound present GI: COMMON NORMALS: Normal to inspection, nondistended, normoactive bowel sounds present and non-tender Extremity: NARRATIVE EXTREMITY EXAM: 1+ edema Neuro: COMMON NORMALS: patient oriented x3 Psych: COMMON NORMALS: mental status grossly normal Urinary Catheter Management: Hernadez: Cath Placed During This Visit: yes Reason for Continuing Indwelling Catheter: Accurate Measurement of Urinary Output in Critically Ill Patients Urinary Catheter Date of Insertion: 11/22/24 Urinary Catheter Time of Insertion: 19:00 Data 11/26/24 04:35 11/26/24 04:35 Micro: Microbiology 11/22/24 15:00 Gram Stain - Final Sputum - Endotracheal Tube Aspirate Sputum Culture - Preliminary A&P Assessment and plan 1. Protein calorie malnutrition: 2. Thrombocytopenia: 3. Transaminitis: 4. Altered mental status: 5. Wernickes encephalopathy: 6. Alcohol withdrawal delirium: 7. Airway intubation performed without difficulty: 8. On mechanically assisted ventilation: 9. High Agitation Sedation Scale (RASS) score minus 4, deep sedation: 10. Alcohol withdrawal seizure: 11. Acute hypoxic respiratory failure: 12. Sepsis: 13. Septic shock: 14. Systolic CHF: Plan: Acute hypoxic respiratory failure -Related to alcohol withdrawal -Bilateral pneumonia -CT chest [place] [id number] IMPRESSION: 1. Small bilateral pleural effusions with infiltrates in the RIGHT greater than LEFT lower lobe suspicious for pneumonia. 2. Chronic emphysematous changes. 3. No acute findings in the abdomen or pelvis. -S/p extubation 11/24/2024 - Now with fluid overload, elevated BNP, systolic CHF Plan - Extubated to room air, - Monitor respiratory status - Continue Zosyn -IV Lasix, metolazone - DuoNeb - Budesonide Systolic CHF, EF 27% - IV diuresis Sepsis, septic shock, resolved - Secondary to bilateral pneumonia - Blood culture - Sputum culture - Maintain MAP greater than 65 - Continue Levophed Altered mental status resolving -With combative behavior ketamine, in the emergency room -Status post intubation - CT head within normal limits - CTA head and neck CT/CT angio headneck* [id number] IMPRESSION: 1. No significant cervical ICA stenosis. 2. No flow-limiting intracranial stenosis. 3. Approximately 40% chronic stenosis proximal LEFT subclavian artery. RIGHT subclavian artery is patent. - Ammonia levels within normal limits - Likely from alcohol withdrawal, alcohol withdrawal seizure - Concern for possible Warnicke's encephalopathy? Will start patient on high- dose thiamine 200 mg 3 times daily for 5 days - Component related to pneumonia, sepsis Alcohol withdrawal, delirium tremens, alcohol withdrawal seizure - Currently intubated, sedated on mechanical ventilation, extubated - Currently on Versed drip off - Currently on fentanyl drip off - History of Warnicke's encephalopathy, IV thiamine -IV Ativan - Banana bag - Folic acid -IV thiamine total 5 days - Neurochecks, NIH stroke scale, seizure precautions Thrombocytopenia -Likely component of alcoholism - LDH 278, haptoglobin 18(low likely secondary to liver disease), peripheral smear pending - No evidence of hemolysis or bleeding Hyponatremia - Likely beers [place] Transaminitis - Likely secondary to alcoholism - However developing hyperbilirubinemia - Liver ultrasound Hypomagnesemia, monitor NSTEMI - Serial EKGs, short troponins, telemetry monitoring - Cardiac echo CONCLUSIONS 1. Severely reduced left ventricular systolic function with EF of 27%. Pattern of regional wall motion abnormality consistent with either stress cardiomyopathy or ischemic cardiomyopathy. 2. Mild RV hypokinesis 3. Mild mitral valve regurgitation 4. 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 Plan - Aspirin, statin - Therapeutic Lovenox, increased risk of bleeding, monitor closely, - Cardiology consulted - Plan on possible coronary angiography on Thursday Full code SCDs for DVT prophylaxis Lovenox Plan for today IV diuresis, PT OT, up into a chair, continue to monitor for alcohol withdrawals, continue IV antibiotics, PDMP PDMP Reviewed: Not Reviewed Attestations 2 Medical Necessity Statement*: Patient requires hospitalization for fluid overload, NSTEMI, pneumonia Diagnoses Protein calorie malnutrition E46 Thrombocytopenia D69.6 Transaminitis R74.01 Altered mental status R41.82 Wernickes encephalopathy E51.2 Alcohol withdrawal delirium F10.931 Airway intubation performed without difficulty Z78.9 On mechanically assisted ventilation Z99.11 High Agitation Sedation Scale (RASS) score minus 4, deep sedation Z78.9 Alcohol withdrawal seizure F10.939; R56.9 Acute hypoxic respiratory failure J96.01 Sepsis A41.9 Septic shock A41.9; R65.21 Systolic CHF I50.20
[2024-11-26] MEDS: polyethylene glycol 3350 Pkt 17 gm PO (14:42)
--- NOTE | 2024-11-26 14:48 | P.PN_ITS ---
Subjective 2 Subjective: Patient is feeling better He has been extubated day before yesterday Still shortness of breath and heart rate gets into high 120s to 130s when she walks around with the PT remains in sinus rhythm Vitals/I&O/Wt Last Vital Signs Temp 98.3 F 11/26/24 14:00 Pulse 100 11/26/24 14:00 Resp 19 H 11/26/24 14:00 BP 123/77 11/26/24 14:00 Pulse Ox 93 11/26/24 14:00 O2 Del Method Room Air 11/26/24 14:00 O2 Flow Rate 2 11/25/24 18:00 FiO2 30 11/24/24 13:21 11/25/24 11/26/24 11/26/24 22:59 06:59 14:59 Intake Total 895 / 1331.656 300 / 1631.656 900 / 900 Output Total 1650 / 1650 950 / 2600 Balance -755 / -318.344 -650 / -968.344 900 / 900 Weight last 48 hrs Weight 132 lb 2.321 oz Weight 132 lb 2.321 oz Physical Exam 2 Const: OTHER: GENERAL: Patient is alert, awake and oriented x3. HEART: Regular S1 and S2. No murmur, rub or gallop. LUNGS: Clear to auscultate bilaterally. CENTRAL NERVOUS SYSTEM: Grossly nonfocal. EXTREMITIES: Lower extremities with out edema bilaterally. Urinary Catheter Management: Hernadez: Cath Placed During This Visit: yes Reason for Continuing Indwelling Catheter: Accurate Measurement of Urinary Output in Critically Ill Patients Urinary Catheter Date of Insertion: 11/22/24 Urinary Catheter Time of Insertion: 19:00 Data 11/26/24 04:35 11/26/24 04:35 Micro: Microbiology 11/22/24 15:00 Gram Stain - Final Sputum - Endotracheal Tube Aspirate Sputum Culture - Preliminary A&P Assessment and plan 1. Altered mental status: 2. Alcohol withdrawal seizure: 3. Transaminitis: 4. Thrombocytopenia: Plan: Continue to optimize medication Patient appeared to be euvolemic Increase beta-brett Once you are over infection/pneumonia we will proceed with left heart cath most likely early next week Further plan will be devised as per progress of the patient PDMP PDMP Reviewed: Not Reviewed Attestations 2 Medical Necessity Statement*: Patient require continuation hospitalization for the above defined care. Coding Level of Care Code Acute Code for Chg Fwd Diagnoses Altered mental status R41.82 Alcohol withdrawal seizure F10.939; R56.9 Transaminitis R74.01 Thrombocytopenia D69.6
[2024-11-26] MEDS: metoprolol succinate ER (24 HR) 25 mg Tablet PO (16:41)
[2024-11-26] MEDS: pantoprazole 40 mg SDV IVP (17:03)
[2024-11-27] VITALS (28 sets, daily range): BP systolic 79–125; BP diastolic 49–71; PULSE 65–100; RESP 15–34; TEMP 36.6–37.2; O2SAT 89–96
[2024-11-27] MEDS: piperacillin-tazobactam 3.375 GM in sodium chloride 0.9% (plus) 50 ML IV ×3 (04:32→20:37)
[2024-11-27] MEDS: thiamine 100 mg/mL 2mL SDV 200 MG IVP ×3 (04:32→20:36)
[2024-11-27 06:12] LABS: Hematocrit 34.9 % (37-53); Hemoglobin 12.30 g/dL (11.27-16.99); Mean Corpuscular HGB Conc 35.2 g/dL (30-55); Mean Corpuscular Hemoglobin 34.4 pg (27-33); Mean Corpuscular Volume 97.5 fl (82-101); Nucleated Red Blood Cells % 0 %; Platelet Count 266 10^3/cmm (157-399); Red Blood Count 3.58 10^6/uL (3.85-5.65); White Blood Count 6.30 10^3/uL (3.29-11.43)
[2024-11-27 07:54] LABS: Alanine Aminotransferase 38 U/L (0-41); Albumin Level 4.3 g/dL (3.5-5.2); Alkaline Phosphatase 87 U/L (40-130); Anion Gap 14.6 (5-19); Aspartate Amino Transferase 32 U/L (0-40); Blood Urea Nitrogen 15 mg/dL (8-23); Calcium 9.8 mg/dL (8.5-10.5); Carbon Dioxide 32 mmol/L (22-29); Chloride 94 mmol/L (98-107); Creatinine Clr Calc Pharmacy 82.1757; Globulin 2.6 g/dL (1.3-4.6); Glucose 106 mg/dL (65-115); Osmolality Calculated 285 mOsm/kg (285-295); Potassium 3.6 mmol/L (3.5-5.1); Sodium 137 mmol/L (136-145); Total Protein 6.9 g/dL (6.6-8.7)
[2024-11-27 08:18] LABS: NT Pro B Type Natriuretic Pept 1970 pg/mL (0-125)
[2024-11-27] MEDS: metoprolol succinate ER (24 HR) 25 mg Tablet PO (08:36)
[2024-11-27] MEDS: multivitamin therapeutic Tablet 1 TAB PO (08:37)
--- NOTE | 2024-11-27 12:31 | P.PN_ITS ---
Subjective 2 Subjective: Patient was seen this morning, currently alert oriented x 3, following commands, denies any fevers, chills, cough, discussed holding off on diuresis today as he appears euvolemic, no tremor, no nausea, no vomiting, no abdominal pain, denies any visual auditory or tactile hallucinations Vitals/I&O/Wt Last Vital Signs Temp 98.0 F 11/27/24 08:00 Pulse 99 11/27/24 12:00 Resp 28 H 11/27/24 12:00 BP 102/61 11/27/24 12:00 Pulse Ox 95 11/27/24 12:00 O2 Del Method Room Air 11/27/24 12:00 O2 Flow Rate 2 11/25/24 18:00 FiO2 30 11/24/24 13:21 11/26/24 11/27/24 11/27/24 22:59 06:59 14:59 Intake Total 300 / 1200 50 / 1250 250 / 250 Output Total 225 / 1625 325 / 1950 Balance 75 / -425 -275 / -700 250 / 250 Weight last 48 hrs Weight 59.5 kg Weight 59.94 kg Physical Exam 2 Const: COMMON NORMALS: no acute distress and patient oriented x3 Resp: COMMON NORMALS: normal respiratory effort, No retractions, No use of accessory muscles and clear to auscultation bilaterally AUSCULTATION: clear to auscultation bilaterally Cardio: COMMON NORMALS: regular rate, regular rhythm, S1 normal heart sound present and S2 normal heart sound present RATE: regular rate RHYTHM: r egular rhythm HEART SOUNDS: S1 normal heart sound present and S2 normal heart sound present GI: COMMON NORMALS: Normal to inspection, nondistended, normoactive bowel sounds present and non-tender Extremity: COMMON NORMALS: no pedal edema Neuro: COMMON NORMALS: patient oriented x3 Psych: COMMON NORMALS: mental status grossly normal Urinary Catheter Management: Hernadez: Cath Placed During This Visit: yes Reason for Continuing Indwelling Catheter: Accurate Measurement of Urinary Output in Critically Ill Patients Urinary Catheter Date of Insertion: 11/22/24 Urinary Catheter Time of Insertion: 19:00 Data 11/27/24 04:12 11/27/24 07:33 Micro: Microbiology 11/22/24 15:00 Gram Stain - Final Sputum - Endotracheal Tube Aspirate Sputum Culture - Final A&P Assessment and plan 1. Protein calorie malnutrition: 2. Thrombocytopenia: 3. Transaminitis: 4. Altered mental status: 5. Wernickes encephalopathy: 6. Alcohol withdrawal delirium: 7. Airway intubation performed without difficulty: 8. On mechanically assisted ventilation: 9. High Agitation Sedation Scale (RASS) score minus 4, deep sedation: 10. Alcohol withdrawal seizure: 11. Acute hypoxic respiratory failure: 12. Sepsis: 13. Septic shock: 14. Systolic CHF: Plan: Acute hypoxic respiratory failure -Related to alcohol withdrawal -Bilateral pneumonia -CT chest [place] [id number] IMPRESSION: 1. Small bilateral pleural effusions with infiltrates in the RIGHT greater than LEFT lower lobe suspicious for pneumonia. 2. Chronic emphysematous changes. 3. No acute findings in the abdomen or pelvis. -S/p extubation 11/24/2024 - Now with fluid overload, elevated BNP, systolic CHF Plan - Extubated to room air, - Monitor respiratory status - Continue Zosyn -IV Lasix, metolazone - DuoNeb - Budesonide Systolic CHF, EF 27% - IV diuresis Sepsis, septic shock, resolved - Secondary to bilateral pneumonia - Blood culture - Sputum culture - Maintain MAP greater than 65 - Continue Levophed Altered mental status resolving -With combative behavior ketamine, in the emergency room -Status post intubation - CT head within normal limits - CTA head and neck CT/CT angio headneck* [id number] IMPRESSION: 1. No significant cervical ICA stenosis. 2. No flow-limiting intracranial stenosis. 3. Approximately 40% chronic stenosis proximal LEFT subclavian artery. RIGHT subclavian artery is patent. - Ammonia levels within normal limits - Likely from alcohol withdrawal, alcohol withdrawal seizure - Concern for possible Warnicke's encephalopathy? Will start patient on high- dose thiamine 200 mg 3 times daily for 5 days - Component related to pneumonia, sepsis Alcohol withdrawal, delirium tremens, alcohol withdrawal seizure - Currently intubated, sedated on mechanical ventilation, extubated - Currently on Versed drip off - Currently on fentanyl drip off - History of Warnicke's encephalopathy, IV thiamine -IV Ativan - Banana bag - Folic acid -IV thiamine total 5 days - Neurochecks, NIH stroke scale, seizure precautions Thrombocytopenia -Likely component of alcoholism - LDH 278, haptoglobin 18(low likely secondary to liver disease), peripheral smear pending - No evidence of hemolysis or bleeding Hyponatremia - Likely beers [place] Transaminitis - Likely secondary to alcoholism - However developing hyperbilirubinemia - Liver ultrasound Hypomagnesemia, monitor NSTEMI - Serial EKGs, short troponins, telemetry monitoring - Cardiac echo CONCLUSIONS 1. Severely reduced left ventricular systolic function with EF of 27%. Pattern of regional wall motion abnormality consistent with either stress cardiomyopathy or ischemic cardiomyopathy. 2. Mild RV hypokinesis 3. Mild mitral valve regurgitation 4. 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 Dilated common duct. 2. Borderline thickened gallbladder wall. CT scan abdomen pelvis Fatty liver. Hepatomegaly. Vicarious excretion of contrast in the gallbladder. Enteric tube with tip in the stomach. Adrenal glands are normal. No hydronephrosis. Fatty atrophy of the pancreas. - No abdominal pain - Is on Zosyn - Normal alk phos, normal LFTs - Suspect congestive hepatopathy - Will continue to monitor LFTs, alk phos, bilirubin if they become elevated will consider MRCP Full code SCDs for DVT prophylaxis Lovenox Plan for today IV diuresis on hold today, PT OT, up into a chair, continue to monitor for alcohol withdrawals, continue IV antibiotics, n.p.o. midnight for coronary angiogram tomorrow PDMP PDMP Reviewed: Not Reviewed Attestations 2 Medical Necessity Statement*: Patient requires hospitalization for NSTEMI, with plans on coronary angiography tomorrow n.p.o. midnight, alcohol withdrawal, pneumonia requiring IV antibiotics Diagnoses Protein calorie malnutrition E46 Thrombocytopenia D69.6 Transaminitis R74.01 Altered mental status R41.82 Wernickes encephalopathy E51.2 Alcohol withdrawal delirium F10.931 Airway intubation performed without difficulty Z78.9 On mechanically assisted ventilation Z99.11 High Agitation Sedation Scale (RASS) score minus 4, deep sedation Z78.9 Alcohol withdrawal seizure F10.939; R56.9 Acute hypoxic respiratory failure J96.01 Sepsis A41.9 Septic shock A41.9; R65.21 Systolic CHF I50.20
--- NOTE | 2024-11-27 13:34 | PC.NURSE ---
Patient blood pressure remains low for more than two cycles, Dr. Talavera notified and orders received for a 250ml fluid bolus and levophed.
[2024-11-27] MEDS: norepinephrine 4 MG/250 ML BAG 7.5 MG IV (14:00)
--- NOTE | 2024-11-27 14:01 | USR_ITS ---
PROCEDURE INFORMATION: Exam: US Abdomen, Limited; Right Upper Quadrant Exam date and time: 11/27/2024 7:10 AM Age: 69 years old Clinical indication: Screening exam; Other: Liver and galbladder; Additional info: Liver and galbladder, notified nurse to keep patient npo at midnight to be scanned in the am. CR TECHNIQUE: Imaging protocol: Real time ultrasound of the abdomen with image documentation. Limited exam focused on the right upper quadrant. COMPARISON: [place] [id number] 11/23/2024 10:06 AM FINDINGS: Liver: 19 cm borderline hepatomegaly. Increased echogenicity suggesting hepatic steatosis. Gallbladder: Normal. No gallstones. The gallbladder wall is borderline at 3 mm. Biliary ducts: Slightly dilated common duct, 9 mm. Pancreas: Predominantly obscured. Right kidney: Normal. No mass. No hydronephrosis. 7 mm cyst. Portal venous: The splenic vein is prominent. US/US gall bladder [id number] IMPRESSION: 1. Dilated common duct. 2. Borderline thickened gallbladder wall.
[2024-11-27] MEDS: pantoprazole 40 mg SDV IVP (17:40)
--- NOTE | 2024-11-27 18:10 | P.PN_ITS ---
Subjective 2 Subjective: Blood pressure has dropped since starting Entresto we will hold it today Hallucinations Vitals/I&O/Wt Last Vital Signs Temp 98.9 F 11/27/24 14:50 Pulse 65 11/27/24 16:00 Resp 33 H 11/27/24 16:00 BP 88/51 11/27/24 16:00 Pulse Ox 93 11/27/24 16:00 O2 Del Method Room Air 11/27/24 16:00 O2 Flow Rate 2 11/25/24 18:00 FiO2 30 11/24/24 13:21 11/27/24 11/27/24 11/27/24 06:59 14:59 22:59 Intake Total 50 / 1250 900 / 900 61.75 / 961.75 Output Total 325 / 1950 Balance -275 / -700 900 / 900 61.75 / 961.75 Weight last 48 hrs Weight 131 lb 2.801 oz Weight 132 lb 2.321 oz Physical Exam 2 Const: OTHER: GENERAL: Patient is alert, awake and oriented x3. HEART: Regular S1 and S2. No murmur, rub or gallop. LUNGS: Clear to auscultate bilaterally. CENTRAL NERVOUS SYSTEM: Grossly nonfocal. EXTREMITIES: Lower extremities with out edema bilaterally. Urinary Catheter Management: Hernadez: Cath Placed During This Visit: yes Reason for Continuing Indwelling Catheter: Accurate Measurement of Urinary Output in Critically Ill Patients Urinary Catheter Date of Insertion: 11/22/24 Urinary Catheter Time of Insertion: 19:00 Data 11/27/24 04:12 11/27/24 07:33 Micro: Microbiology 11/22/24 15:00 Gram Stain - Final Sputum - Endotracheal Tube Aspirate Sputum Culture - Final A&P Assessment and plan 1. Altered mental status: 2. Alcohol withdrawal seizure: 3. Transaminitis: 4. Thrombocytopenia: Plan: Holding Entresto for hypotension Continue rest of medication May can give IV fluid 100 mL/h Once over pneumonia and no hallucination we will proceed with left heart cath during this hospitalization PDMP PDMP Reviewed: Not Reviewed Attestations 2 Medical Necessity Statement*: Patient require continuation hospitalization for above defined care Coding Level of Care Code Acute Code for Chg Fwd Diagnoses Altered mental status R41.82 Alcohol withdrawal seizure F10.939; R56.9 Transaminitis R74.01 Thrombocytopenia D69.6
[2024-11-28] VITALS (18 sets, daily range): BP systolic 92–122; BP diastolic 54–73; PULSE 71–90; RESP 8–28; TEMP 36.6–37.1; O2SAT 90–96
[2024-11-28] MEDS: piperacillin-tazobactam 3.375 GM in sodium chloride 0.9% (plus) 50 ML IV ×2 (03:27→11:42)
[2024-11-28 04:22] LABS: Hematocrit 34.0 % (37-53); Hemoglobin 12.10 g/dL (11.27-16.99); Mean Corpuscular HGB Conc 35.6 g/dL (30-55); Mean Corpuscular Hemoglobin 35.4 pg (27-33); Mean Corpuscular Volume 99.4 fl (82-101); Nucleated Red Blood Cells % 0 %; Platelet Count 321 10^3/cmm (157-399); Red Blood Count 3.42 10^6/uL (3.85-5.65); White Blood Count 7.00 10^3/uL (3.29-11.43)
[2024-11-28 04:46] LABS: NT Pro B Type Natriuretic Pept 382 pg/mL (0-125)
[2024-11-28 05:03] LABS: Alanine Aminotransferase 39 U/L (0-41); Albumin Level 4.1 g/dL (3.5-5.2); Alkaline Phosphatase 77 U/L (40-130); Blood Urea Nitrogen 18 mg/dL (8-23); Calcium 9.4 mg/dL (8.5-10.5); Carbon Dioxide 31 mmol/L (22-29); Chloride 94 mmol/L (98-107); Creatinine Clr Calc Pharmacy 82.1757; Globulin 2.0 g/dL (1.3-4.6); Glucose 99 mg/dL (65-115); Osmolality Calculated 282 mOsm/kg (285-295); Sodium 135 mmol/L (136-145); Total Protein 6.1 g/dL (6.6-8.7)
[2024-11-28 05:05] LABS: Anion Gap 13.8 (5-19); Aspartate Amino Transferase 39 U/L (0-40); Potassium 3.8 mmol/L (3.5-5.1)
--- NOTE | 2024-11-28 09:00 | P.PN_ITS ---
<Statement entered by Kaycee Mckinnon MD - 11/29/24 19:52> Patient was evaluated and cared for in conjunction with an advanced practice practitioner. I personally examined the patient and reviewed the chart and all pertinent data including imaging, telemetry, and laboratory results. I discussed the patient in detail with the advanced practice practitioner. Please see their note for complete H&P testing result and agreed upon plan of care for the patient. Subjective 2 Subjective: He is recovering from pneumonia, cough is improving. Entresto has been on hold due to soft blood pressures, if blood pressures improve will try to restart this evening. Vitals/I&O/Wt Last Vital Signs Temp 97.9 F 11/28/24 08:00 Pulse 86 11/28/24 12:00 Resp 19 H 11/28/24 12:00 BP 96/64 11/28/24 12:00 Pulse Ox 96 11/28/24 12:00 O2 Del Method Room Air 11/28/24 08:53 O2 Flow Rate 2 11/25/24 18:00 FiO2 30 11/24/24 13:21 11/28/24 11/28/24 11/28/24 06:59 14:59 22:59 Intake Total 50 / 1263.25 580 / 580 Output Total 350 / 700 Balance -300 / 563.25 580 / 580 Weight last 48 hrs Weight 132 lb Weight 131 lb 2.801 oz Physical Exam 2 Const: COMMON NORMALS: no acute distress and patient oriented x3 GENERAL APPEARANCE: cooperative and comfortable ORIENTATION/CONSCIOUSNESS: Yes awake, Yes oriented to person, Yes oriented to place and Yes oriented to time Chest: COMMONS NORMALS: normal inspection of the chest and normal palpation of entire chest wall CHEST: Yes Symmetrical chest wall rise Resp: COMMON NORMALS: normal respiratory effort, No retractions and No use of accessory muscles EFFORT & INSPECTION: Yes symmetric chest movement A USCULTATION: crackles Laterality: bilateral and posterior Cardio: COMMON NORMALS: regular rate, regular rhythm, S1 normal heart sound present, S2 normal heart sound present, No gallops present (Cardio), No clicks present (Cardio), No murmurs present (Cardio) and No rub (Cardio) RATE: r egular rate RHYTHM: regular rhythm HEART SOUNDS: S1 normal heart sound present and S2 normal heart sound present PERIPHERAL PULSES: radial pulses present Extremity: COMMON NORMALS: no pedal edema Neuro: COMMON NORMALS: patient oriented x3 and moves all extremities S ENSORIUM/ORIENTATION: Yes oriented to person, Yes oriented to place and Yes oriented to time Urinary Catheter Management: Hernadez: Cath Placed During This Visit: yes Reason for Continuing Indwelling Catheter: Accurate Measurement of Urinary Output in Critically Ill Patients Urinary Catheter Date of Insertion: 11/22/24 Urinary Catheter Time of Insertion: 19:00 Data 11/28/24 03:33 11/28/24 03:33 Micro: Microbiology 11/22/24 15:23 Blood Culture - Final Blood NO GROWTH AFTER 5 DAYS 11/22/24 15:23 Blood Culture - Final Blood NO GROWTH AFTER 5 DAYS A&P Assessment and plan 1. Takotsubo cardiomyopathy: 2. Systolic heart failure: Plan: Plan is for coronary angiogram on Thursday morning. Will obtain chest x- ray in the morning to assess resolution of pneumonia. Blood pressures are soft, continue metoprolol succinate 25 mg daily, aspirin. PDMP PDMP Reviewed: Not Reviewed Attestations 2 Medical Necessity Statement*: Ischemic workup for new onset systolic CHF Coding Level of Care Code Acute Code for [facility] Diagnoses Takotsubo cardiomyopathy I51.81 Systolic heart failure I50.20
[2024-11-28] MEDS: multivitamin therapeutic Tablet 1 TAB PO (09:11)
--- NOTE | 2024-11-28 09:23 | PC.NURSE ---
metoprolol held due to pts bp being 99/69. acacia briscoe notified.
--- NOTE | 2024-11-28 10:53 | PC.NURSE ---
report called to MAYNOR Bergeron on CSU. all questions answered. pt stable at time of transfer.
--- NOTE | 2024-11-28 11:03 | PC.NURSE ---
Patient received from ICU via bed. Patient denies pain or needs at this time except i want my lunch . Patient is pleasant and cooperative at this time. Hernadez catheter is in place.
[2024-11-28] MEDS: pantoprazole 40 mg SDV IVP (11:42)
--- NOTE | 2024-11-28 13:13 | PC.SOCIAL ---
IMM Update pg 2 of IMM Updated and reviewed w/ patient. Copy provided and copy dated, initialed and placed in chart.
--- NOTE | 2024-11-28 15:20 | P.PN_ITS ---
Subjective 2 Subjective: Chart reviewed in detail. Patient transferred from ICU to CSU today. Denies any new complaints. He remains off Levophed. Medications: Reviewed: Yes Vitals/I&O/Wt Last Vital Signs Temp 97.9 F 11/28/24 08:00 Pulse 86 11/28/24 12:00 Resp 19 H 11/28/24 12:00 BP 96/64 11/28/24 12:00 Pulse Ox 96 11/28/24 12:00 O2 Del Method Room Air 11/28/24 08:53 O2 Flow Rate 2 11/25/24 18:00 FiO2 30 11/24/24 13:21 11/28/24 11/28/24 11/28/24 06:59 14:59 22:59 Intake Total 50 / 1263.25 580 / 580 Output Total 350 / 700 Balance -300 / 563.25 580 / 580 Weight last 48 hrs Weight 59.874 kg Weight 59.5 kg Physical Exam 2 Narrative: General: No acute distress, AO x3 HEENT: PERRLA, pupils bilaterally equal and reactive, pallors not present Chest: Normal vesicular breath sounds, no added sounds, equal good air entry bilaterally CVS: S1-S2 regular, no murmurs, no tachycardia, no gallops, no rubs Abdomen: Soft, nontender, no organomegaly, bowel sounds present Neuro: No focal deficits, no facial deformity, AO x3, power 5/5 in all limbs Urinary Catheter Management: Hernadez: Cath Placed During This Visit: yes Reason for Continuing Indwelling Catheter: Accurate Measurement of Urinary Output in Critically Ill Patients Urinary Catheter Date of Insertion: 11/22/24 Urinary Catheter Time of Insertion: 19:00 Data 11/28/24 03:33 11/28/24 03:33 Micro: Microbiology 11/22/24 15:23 Blood Culture - Final Blood NO GROWTH AFTER 5 DAYS 11/22/24 15:23 Blood Culture - Final Blood NO GROWTH AFTER 5 DAYS A&P Assessment and plan 1. Protein calorie malnutrition: 2. Thrombocytopenia: 3. Transaminitis: 4. Altered mental status: 5. Wernickes encephalopathy: 6. Alcohol withdrawal delirium: 7. Airway intubation performed without difficulty: 8. On mechanically assisted ventilation: 9. High Agitation Sedation Scale (RASS) score minus 4, deep sedation: 10. Alcohol withdrawal seizure: 11. Acute hypoxic respiratory failure: 12. Sepsis: 13. Septic shock: 14. Systolic CHF: Plan: Acute hypoxic respiratory failure -Related to alcohol withdrawal -Bilateral pneumonia -CT chest [place] [id number] IMPRESSION: 1. Small bilateral pleural effusions with infiltrates in the RIGHT greater than LEFT lower lobe suspicious for pneumonia. 2. Chronic emphysematous changes. 3. No acute findings in the abdomen or pelvis. -S/p extubation 11/24/2024 - Now with fluid overload, elevated BNP, systolic CHF Plan - Extubated to room air, - Monitor respiratory status - Continue Zosyn -IV Lasix, metolazone - DuoNeb - Budesonide Systolic CHF, EF 27% - IV diuresis Sepsis, septic shock, resolved - Secondary to bilateral pneumonia - Blood culture - Sputum culture - Maintain MAP greater than 65 - Continue Levophed Altered mental status resolving -With combative behavior ketamine, in the emergency room -Status post intubation - CT head within normal limits - CTA head and neck CT/CT angio headneck* [id number] IMPRESSION: 1. No significant cervical ICA stenosis. 2. No flow-limiting intracranial stenosis. 3. Approximately 40% chronic stenosis proximal LEFT subclavian artery. RIGHT subclavian artery is patent. - Ammonia levels within normal limits - Likely from alcohol withdrawal, alcohol withdrawal seizure - Concern for possible Warnicke's encephalopathy? Will start patient on high- dose thiamine 200 mg 3 times daily for 5 days - Component related to pneumonia, sepsis Alcohol withdrawal, delirium tremens, alcohol withdrawal seizure - Currently intubated, sedated on mechanical ventilation, extubated - Currently on Versed drip off - Currently on fentanyl drip off - History of Warnicke's encephalopathy, IV thiamine -IV Ativan - Banana bag - Folic acid -IV thiamine total 5 days - Neurochecks, NIH stroke scale, seizure precautions Thrombocytopenia -Likely component of alcoholism - LDH 278, haptoglobin 18(low likely secondary to liver disease), peripheral smear pending - No evidence of hemolysis or bleeding Hyponatremia - Likely beers [place] Transaminitis - Likely secondary to alcoholism - However developing hyperbilirubinemia - Liver ultrasound Hypomagnesemia, monitor NSTEMI - Serial EKGs, short troponins, telemetry monitoring - Cardiac echo CONCLUSIONS 1. Severely reduced left ventricular systolic function with EF of 27%. Pattern of regional wall motion abnormality consistent with either stress cardiomyopathy or ischemic cardiomyopathy. 2. Mild RV hypokinesis 3. Mild mitral valve regurgitation 4. 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 Dilated common duct. 2. Borderline thickened gallbladder wall. CT scan abdomen pelvis Fatty liver. Hepatomegaly. Vicarious excretion of contrast in the gallbladder. Enteric tube with tip in the stomach. Adrenal glands are normal. No hydronephrosis. Fatty atrophy of the pancreas. - No abdominal pain - Is on Zosyn - Normal alk phos, normal LFTs - Suspect congestive hepatopathy - Will continue to monitor LFTs, alk phos, bilirubin if they become elevated will consider MRCP Full code SCDs for DVT prophylaxis Lovenox Plan for today IV diuresis on hold today, PT OT, up into a chair, continue to monitor for alcohol withdrawals, continue IV antibiotics, n.p.o. midnight for coronary angiogram tomorrow November 28, 2024 69-year-old male with a past medical history of alcoholism, Warnicke's encephalopathy, history of hyponatremia, hypomagnesemia, transaminitis, history of thrombocytopenia, history of alcohol associated protein calorie malnutrition, who presented to [facility] on November 22, 2024 due to altered mental status. e received Haldol, ketamine, still combative in the emergency room, combative in the emergency room intubated by ER provider. He was admitted to the hospital in view of delirium tremens and acute hypoxic respiratory failure. CT of the head was performed which showed 40% chronic stenosis of the proximal left subclavian artery. Unlikely to be the cause of his symptoms. He received high-dose thiamine 200 mg 3 times a day for 5 days. He was found to have elevated troponins 30--> 288--> 301, EKG shows early repolarization changes with sinus tachycardia. He was found to have a pneumonia and is on IV antibiotics for this reason. He required pressor support due to hypotension and shock. Echocardiogram showed an EF of 27% and mild RV hypokinesia. Patient is planned to undergo an angiogram on 11/30/2024 to evaluate for underlying ischemic disease. He received treatment with aspirin statin and therapeutic Lovenox. He was extubated on November 24, 2024. His blood pressure remains on the softer side with systolic in the 90s therefore Entresto has been unable to be added at this time. CT of the chest abdomen and pelvis on day of admission had shown small bilateral pleural effusion with infiltrates in the right greater than left suspicious for aspiration pneumonia. Ultrasound of the gallbladder showed borderline hepatomegaly and increased echogenicity suggesting hepatic steatosis likely compatible with alcoholic hepatitis. The gallbladder was normal without any gallstones. Slightly dilated CBD was noted at 9 mm without any blocking stones. LFTs have currently normalized with T. bili at 1.0, AST at 39, ALT at 39, alkaline phosphatase of 77. Plan: Continue aspirin 81 mg p.o. daily, Lipitor 40 mg p.o. at bedtime, Lovenox 70 mg subcutaneously every 12 hours, metoprolol 25 mg p.o. daily for NSTEMI. Plan angiogram on 11/30/2024 to assess for ischemic versus Takotsubo cardiomyopathy. Start thiamine 100 mg p.o. daily. He has completed 200 mg IV every 8 hours today. Discontinue piperacillin/tazobactam - thus far has had between 11/22/2024 to 11/28/2024, completed 7-day course for aspiration pneumonia. Discontinue Hernadez catheter PDMP PDMP Reviewed: Not Reviewed Attestations 2 Medical Necessity Statement*: planned angiogram on , on treatment for cardiomyopathy and NSTEMI. transfer from ICU to CSU Coding Level of Care Code Acute Code for Chg Fwd High MDM includes number and complexity of problems actively addressed during encounter, amount and/or complexity of data reviewed/ordered and described risk of complication, morbidity or mortality of management as documented Diagnoses Protein calorie malnutrition E46 Thrombocytopenia D69.6 Transaminitis R74.01 Altered mental status R41.82 Wernickes encephalopathy E51.2 Alcohol withdrawal delirium F10.931 Airway intubation performed without difficulty Z78.9 On mechanically assisted ventilation Z99.11 High Agitation Sedation Scale (RASS) score minus 4, deep sedation Z78.9 Alcohol withdrawal seizure F10.939; R56.9 Acute hypoxic respiratory failure J96.01 Sepsis A41.9 Septic shock A41.9; R65.21 Systolic CHF I50.20
[2024-11-29] VITALS (9 sets, daily range): BP systolic 104–119; BP diastolic 53–68; PULSE 68–97; RESP 16–22; TEMP 36.7–36.8; O2SAT 91–96
[2024-11-29 04:06] LABS: Hematocrit 31.9 % (37-53); Hemoglobin 11.20 g/dL (11.27-16.99); Mean Corpuscular HGB Conc 35.1 g/dL (30-55); Mean Corpuscular Hemoglobin 34.0 pg (27-33); Mean Corpuscular Volume 97.0 fl (82-101); Nucleated Red Blood Cells % 0 %; Platelet Count 305 10^3/cmm (157-399); Red Blood Count 3.29 10^6/uL (3.85-5.65); White Blood Count 7.12 10^3/uL (3.29-11.43)
[2024-11-29 04:29] LABS: Alanine Aminotransferase 44 U/L (0-41); Albumin Level 4.1 g/dL (3.5-5.2); Alkaline Phosphatase 73 U/L (40-130); Anion Gap 14.4 (5-19); Aspartate Amino Transferase 42 U/L (0-40); Blood Urea Nitrogen 21 mg/dL (8-23); Calcium 9.9 mg/dL (8.5-10.5); Carbon Dioxide 30 mmol/L (22-29); Chloride 99 mmol/L (98-107); Creatinine Clr Calc Pharmacy 82.3653; Globulin 2.4 g/dL (1.3-4.6); Glucose 99 mg/dL (65-115); Osmolality Calculated 293 mOsm/kg (285-295); Potassium 3.4 mmol/L (3.5-5.1); Sodium 140 mmol/L (136-145); Total Protein 6.5 g/dL (6.6-8.7)
--- NOTE | 2024-11-29 06:00 | XR_ITS ---
WS: [id number] Portable AP upright chest, 11/29/2024 Clinical Data: pneumonia Comparison: Portable chest, 11/23/2024 Findings: The patchy lower lobe opacities have cleared. No nodules, masses or effusions are seen. The heart is normal. The pulmonary vascularity is not increased. No pneumonia or pneumothorax is seen. The nasogastric tube and endotracheal tube have been removed. The right PICC line remains in position. The aortic arch and descending thoracic aorta show mild calcification and tortuosity. There are monitor leads on the chest wall. XR/XR chest 1V portable [id number] Impression: Atherosclerosis.
[2024-11-29] MEDS: metoprolol succinate ER (24 HR) 25 mg Tablet PO (08:34)
[2024-11-29] MEDS: multivitamin therapeutic Tablet 1 TAB PO (08:34)
--- NOTE | 2024-11-29 09:32 | P.PN_ITS ---
<Statement entered by Kaycee Mckinnon MD - 11/29/24 19:53> Patient was evaluated and cared for in conjunction with an advanced practice practitioner. I personally examined the patient and reviewed the chart and all pertinent data including imaging, telemetry, and laboratory results. I discussed the patient in detail with the advanced practice practitioner. Please see their note for complete H&P testing result and agreed upon plan of care for the patient. Overall patient is doing fine breathing better able to lay flat. GENERAL: Patient is alert, awake and oriented x3. HEART: Regular S1 and S2. No murmur, rub or gallop. LUNGS: Clear to auscultate bilaterally. CENTRAL NERVOUS SYSTEM: Grossly nonfocal. EXTREMITIES: Lower extremities with out edema bilaterally. Assessment and plan New onset of heart failure New onset of LV severe dysfunction Pneumonia sepsis Syncope As plan below, will proceed with left heart cath for new onset of heart failure severe LV dysfunction rule out ischemic cardiomyopathy. Further plan will be devised as per progress the patient Subjective 2 Subjective: Chest x-ray obtained this morning shows lower lobe opacities are cleared. Normal pulmonary vascularity. No pneumonia or pneumothorax. Will plan for coronary angiogram in the morning. Vitals/I&O/Wt Last Vital Signs Temp 98.2 F 11/29/24 07:25 Pulse 93 11/29/24 07:25 Resp 22 H 11/29/24 07:25 BP 112/68 11/29/24 07:25 Pulse Ox 96 11/29/24 07:25 O2 Del Method Room Air 11/29/24 03:56 O2 Flow Rate 2 11/25/24 18:00 FiO2 30 11/24/24 13:21 11/28/24 11/29/24 11/29/24 22:59 06:59 14:59 Intake Total 240 / 1060 240 / 1060 Output Total 200 / 200 Balance 40 / 860 240 / 860 Weight last 48 hrs Weight 123 lb 10.869 oz Weight 132 lb Physical Exam 2 Const: COMMON NORMALS: no acute distress and patient oriented x3 GENERAL APPEARANCE: cooperative and comfortable ORIENTATION/CONSCIOUSNESS: Yes awake, Yes oriented to person, Yes oriented to place and Yes oriented to time Chest: COMMONS NORMALS: normal inspection of the chest and normal palpation of entire chest wall CHEST: Yes Symmetrical chest wall rise Resp: COMMON NORMALS: normal respiratory effort, No retractions, No use of accessory muscles and clear to auscultation bilaterally EFFORT & INSPECTION: Yes symmetric chest movement AUSCULTATION: clear to auscultation bilaterally Cardio: COMMON NORMALS: regular rate, regular rhythm, S1 normal heart sound present, S2 normal heart sound present, No gallops present (Cardio), No clicks present (Cardio), No murmurs present (Cardio) and No rub (Cardio) RATE: r egular rate RHYTHM: regular rhythm HEART SOUNDS: S1 normal heart sound present and S2 normal heart sound present PERIPHERAL PULSES: radial pulses present Extremity: COMMON NORMALS: no pedal edema Neuro: COMMON NORMALS: patient oriented x3 and moves all extremities S ENSORIUM/ORIENTATION: Yes oriented to person, Yes oriented to place and Yes oriented to time Urinary Catheter Management: Hernadez: Cath Placed During This Visit: yes, but has since been removed by the nurse Reason for Continuing Indwelling Catheter: Acute Urinary Retention or Obstruction Urinary Catheter Date of Insertion: 11/22/24 Urinary Catheter Time of Insertion: 19:00 Date Urinary Catheter Removed: 11/28/24 Time Urinary Catheter Discontinued: 15:50 Data 11/29/24 03:49 11/29/24 03:49 A&P Assessment and plan 1. Takotsubo cardiomyopathy: 2. Systolic heart failure: Plan: Blood pressure has improved from the 90s systolic to 105-119 systolic. If blood pressure demonstrates stability today we will start Entresto this evening. Plan for coronary angiogram tomorrow morning. N.p.o. after midnight tonight. He appears euvolemic. No chest pain or shortness of breath. PDMP PDMP Reviewed: Not Reviewed Attestations 2 Medical Necessity Statement*: Ischemic workup for new onset systolic CHF Coding Level of Care Code Acute Code for [facility] Fwd Diagnoses Takotsubo cardiomyopathy I51.81 Systolic heart failure I50.20
--- NOTE | 2024-11-29 12:33 | PM.PN ---
Subjective Subjective: No new complaints today. Clinically euvolemic. Blood pressure is better today. Medications: Reviewed: Yes Vitals/I&O/Wt Last Vital Signs Temp 98.2 F 11/29/24 07:25 Pulse 93 11/29/24 07:25 Resp 22 H 11/29/24 07:25 BP 112/68 11/29/24 07:25 Pulse Ox 96 11/29/24 07:25 O2 Del Method Room Air 11/29/24 03:56 O2 Flow Rate 2 11/25/24 18:00 FiO2 30 11/24/24 13:21 11/28/24 11/29/24 11/29/24 22:59 06:59 14:59 Intake Total 240 / 820 240 / 1060 480 / 480 Output Total 200 / 200 Balance 40 / 620 240 / 860 480 / 480 Weight last 48 hrs Weight 56.1 kg Weight 59.874 kg Physical Exam Narrative: General: No acute distress, AO x3 HEENT: PERRLA, pupils bilaterally equal and reactive, pallors not present Chest: Normal vesicular breath sounds, no added sounds, equal good air entry bilaterally CVS: S1-S2 regular, no murmurs, no tachycardia, no gallops, no rubs Abdomen: Soft, nontender, no organomegaly, bowel sounds present Neuro: No focal deficits, no facial deformity, AO x3, power 5/5 in all limbs Urinary Catheter Management: Hernadez: Cath Placed During This Visit: yes, but has since been removed by the nurse Reason for Continuing Indwelling Catheter: Acute Urinary Retention or Obstruction Urinary Catheter Date of Insertion: 11/22/24 Urinary Catheter Time of Insertion: 19:00 Date Urinary Catheter Removed: 11/28/24 Time Urinary Catheter Discontinued: 15:50 Data 11/29/24 03:49 11/29/24 03:49 A&P Assessment and plan 1. Protein calorie malnutrition: 2. Thrombocytopenia: 3. Transaminitis: 4. Altered mental status: 5. Wernickes encephalopathy: 6. Alcohol withdrawal delirium: 7. Airway intubation performed without difficulty: 8. On mechanically assisted ventilation: 9. High Agitation Sedation Scale (RASS) score minus 4, deep sedation: 10. Alcohol withdrawal seizure: 11. Acute hypoxic respiratory failure: 12. Sepsis: 13. Septic shock: 14. Systolic CHF: Plan: Acute hypoxic respiratory failure -Related to alcohol withdrawal -Bilateral pneumonia -CT chest [place] [id number] IMPRESSION: 1. Small bilateral pleural effusions with infiltrates in the RIGHT greater than LEFT lower lobe suspicious for pneumonia. 2. Chronic emphysematous changes. 3. No acute findings in the abdomen or pelvis. -S/p extubation 11/24/2024 - Now with fluid overload, elevated BNP, systolic CHF Plan - Extubated to room air, - Monitor respiratory status - Continue Zosyn -IV Lasix, metolazone - DuoNeb - Budesonide Systolic CHF, EF 27% - IV diuresis Sepsis, septic shock, resolved - Secondary to bilateral pneumonia - Blood culture - Sputum culture - Maintain MAP greater than 65 - Continue Levophed Altered mental status resolving -With combative behavior ketamine, in the emergency room -Status post intubation - CT head within normal limits - CTA head and neck CT/CT angio headneck* [id number] IMPRESSION: 1. No significant cervical ICA stenosis. 2. No flow-limiting intracranial stenosis. 3. Approximately 40% chronic stenosis proximal LEFT subclavian artery. RIGHT subclavian artery is patent. - Ammonia levels within normal limits - Likely from alcohol withdrawal, alcohol withdrawal seizure - Concern for possible Warnicke's encephalopathy? Will start patient on high-dose thiamine 200 mg 3 times daily for 5 days - Component related to pneumonia, sepsis Alcohol withdrawal, delirium tremens, alcohol withdrawal seizure - Currently intubated, sedated on mechanical ventilation, extubated - Currently on Versed drip off - Currently on fentanyl drip off - History of Warnicke's encephalopathy, IV thiamine -IV Ativan - Banana bag - Folic acid -IV thiamine total 5 days - Neurochecks, NIH stroke scale, seizure precautions Thrombocytopenia -Likely component of alcoholism - LDH 278, haptoglobin 18(low likely secondary to liver disease), peripheral smear pending - No evidence of hemolysis or bleeding Hyponatremia - Likely beers [place] Transaminitis - Likely secondary to alcoholism - However developing hyperbilirubinemia - Liver ultrasound Hypomagnesemia, monitor NSTEMI - Serial EKGs, short troponins, telemetry monitoring - Cardiac echo CONCLUSIONS 1. Severely reduced left ventricular systolic function with EF of 27%. Pattern of regional wall motion abnormality consistent with either stress cardiomyopathy or ischemic cardiomyopathy. 2. Mild RV hypokinesis 3. Mild mitral valve regurgitation 4. 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 Dilated common duct. 2. Borderline thickened gallbladder wall. CT scan abdomen pelvis Fatty liver. Hepatomegaly. Vicarious excretion of contrast in the gallbladder. Enteric tube with tip in the stomach. Adrenal glands are normal. No hydronephrosis. Fatty atrophy of the pancreas. - No abdominal pain - Is on Zosyn - Normal alk phos, normal LFTs - Suspect congestive hepatopathy - Will continue to monitor LFTs, alk phos, bilirubin if they become elevated will consider MRCP Full code SCDs for DVT prophylaxis Lovenox Plan for today IV diuresis on hold today, PT OT, up into a chair, continue to monitor for alcohol withdrawals, continue IV antibiotics, n.p.o. midnight for coronary angiogram tomorrow November 28, 2024 69-year-old male with a past medical history of alcoholism, Warnicke's encephalopathy, history of hyponatremia, hypomagnesemia, transaminitis, history of thrombocytopenia, history of alcohol associated protein calorie malnutrition, who presented to [facility] on November 22, 2024 due to altered mental status. e received Haldol, ketamine, still combative in the emergency room, combative in the emergency room intubated by ER provider. He was admitted to the hospital in view of delirium tremens and acute hypoxic respiratory failure. CT of the head was performed which showed 40% chronic stenosis of the proximal left subclavian artery. Unlikely to be the cause of his symptoms. He received high-dose thiamine 200 mg 3 times a day for 5 days. He was found to have elevated troponins 30--> 288--> 301, EKG shows early repolarization changes with sinus tachycardia. He was found to have a pneumonia and is on IV antibiotics for this reason. He required pressor support due to hypotension and shock. Echocardiogram showed an EF of 27% and mild RV hypokinesia. Patient is planned to undergo an angiogram on 11/30/2024 to evaluate for underlying ischemic disease. He received treatment with aspirin statin and therapeutic Lovenox. He was extubated on November 24, 2024. His blood pressure remains on the softer side with systolic in the 90s therefore Entresto has been unable to be added at this time. CT of the chest abdomen and pelvis on day of admission had shown small bilateral pleural effusion with infiltrates in the right greater than left suspicious for aspiration pneumonia. Ultrasound of the gallbladder showed borderline hepatomegaly and increased echogenicity suggesting hepatic steatosis likely compatible with alcoholic hepatitis. The gallbladder was normal without any gallstones. Slightly dilated CBD was noted at 9 mm without any blocking stones. LFTs have currently normalized with T. bili at 1.0, AST at 39, ALT at 39, alkaline phosphatase of 77. Plan: Continue aspirin 81 mg p.o. daily, Lipitor 40 mg p.o. at bedtime, Lovenox 70 mg subcutaneously every 12 hours, metoprolol 25 mg p.o. daily for NSTEMI. Plan angiogram on 11/30/2024 to assess for ischemic versus Takotsubo cardiomyopathy. Start thiamine 100 mg p.o. daily. He has completed 200 mg IV every 8 hours today. Discontinue piperacillin/tazobactam - thus far has had between 11/22/2024 to 11/28/2024, completed 7-day course for aspiration pneumonia. Discontinue Hernadez catheter November 29, 2024 No new complaints today. Patient is feeling better. He is noted to be ambulating in the room. Plan for coronary angiogram tomorrow. Blood pressure trend is better. Plan to add Entresto later today per cardiology. PDMP PDMP Reviewed: Not Reviewed Attestations Medical Necessity Statement*: Planned angiogram tomorrow. Coding Level of Care Code Acute Code for Chg Fwd Moderate MDM includes number and complexity of problems actively addressed during encounter, amount and/or complexity of data reviewed/ordered and described risk of complication, morbidity or mortality of management as documented Diagnoses Protein calorie malnutrition E46 Thrombocytopenia D69.6 Transaminitis R74.01 Altered mental status R41.82 Wernickes encephalopathy E51.2 Alcohol withdrawal delirium F10.931 Airway intubation performed without difficulty Z78.9 On mechanically assisted ventilation Z99.11 High Agitation Sedation Scale (RASS) score minus 4, deep sedation Z78.9 Alcohol withdrawal seizure F10.939; R56.9 Acute hypoxic respiratory failure J96.01 Sepsis A41.9 Septic shock A41.9; R65.21 Systolic CHF I50.20
[2024-11-30] VITALS (23 sets, daily range): BP systolic 84–121; BP diastolic 26–75; PULSE 59–85; RESP 18–32; TEMP 36.2–36.8; O2SAT 91–95
[2024-11-30 04:06] LABS: Hematocrit 31.3 % (37-53); Hemoglobin 10.90 g/dL (11.27-16.99); Mean Corpuscular HGB Conc 34.8 g/dL (30-55); Mean Corpuscular Hemoglobin 34.9 pg (27-33); Mean Corpuscular Volume 100.3 fl (82-101); Nucleated Red Blood Cells % 0 %; Platelet Count 399 10^3/cmm (157-399); Red Blood Count 3.12 10^6/uL (3.85-5.65); White Blood Count 7.94 10^3/uL (3.29-11.43)
[2024-11-30 04:26] LABS: Alanine Aminotransferase 51 U/L (0-41); Albumin Level 3.9 g/dL (3.5-5.2); Alkaline Phosphatase 72 U/L (40-130); Anion Gap 13.4 (5-19); Aspartate Amino Transferase 45 U/L (0-40); Blood Urea Nitrogen 20 mg/dL (8-23); Calcium 9.7 mg/dL (8.5-10.5); Carbon Dioxide 29 mmol/L (22-29); Chloride 103 mmol/L (98-107); Creatinine Clr Calc Pharmacy 71.0990; Globulin 2.4 g/dL (1.3-4.6); Glucose 101 mg/dL (65-115); Magnesium 1.4 mg/dL (1.7-2.3); Osmolality Calculated 297 mOsm/kg (285-295); Potassium 3.4 mmol/L (3.5-5.1); Sodium 142 mmol/L (136-145); Total Protein 6.3 g/dL (6.6-8.7)
--- NOTE | 2024-11-30 05:10 | XACV_ITS ---
Exam Room: 2 Ht: 173 cm Wt: 56 kg BSA: 1.63 m2 Gender: Male : 1955 Any Known Allergies: No known allergies Exam Priority: Routine Procedure(s): Procedure Description: Diagnostic procedure Ino GROVER; Diagnostic Cath Status: Elective Diagnostic Findings * Left Main has no disease. * Circumflex has no disease. * Distal Left Anterior Descending: luminal irregularities 20% stenosis, MARCELLUS: 3 flow. * Proximal Right Coronary Artery: minimal 30% stenosis, MARCELLUS: 3 flow. * Coronary angiography shows right dominance. Conclusions 1. There is minimal coronary artery disease with two vessel disease. 2. Mild left ventricular systolic dysfunction. Ejection fraction of 40%. Recommendations * 1-Return to inpatient for close monitoring and routine cath care 2-Risk factor modification for secondary prevention 3-Statin and aspirin 81 mg life-long, if tolerated 4-Continue optimal medical management for LV dysfunction 5-Follow up with Dr. Mckinnon in four weeks and your primary care in 10 days. Diagnostic RX Recommendation: medical therapy and/or counseling LV EDP: 17 mmHg Ventriculography Ejection Fraction: 40.0 % Pressures Phase:Rest AO : 88 / 48 ( 61 ) @ 7:30:00 AM 69 / 50 ( 59 ) @ 7:31:00 AM 110 / 63 ( 84 ) @ 7:38:00 AM 122 / 56 ( 83 ) @ 7:43:00 AM 120 / 55 ( 81 ) @ 7:43:00 AM LV : 135 / -1 / 17 @ 7:42:00 AM 129 / -1 / 17 @ 7:43:00 AM 128 / -2 / 16 @ 7:43:00 AM Valves Phase:DefaultPhase AV : 6.0 @ 6:49:15 AM AV Mean Gradient: 6.0 @ 6:49:15 AM Clinical Evaluation EBL: 5mL-10mL Procedural Details Current Diagnosis : Chest Pain. Pre-Procedure Time Out. Identified patient by full name and date of as verbalized by the patient/guarantor. Does the consent match the physician's order: Yes. Accurate & Complete Informed Consent: Yes. Inpatient/Outpatient History & Physical on Chart: Yes. If H&P is completed, is and addenduem needed: No; If yes, is the addendum complete: N/A. Visualize and Verify Site with Patient/Guarantor: N/A. Relevant Radiology Images available: Yes. Pre-op teaching completed and patient verbalized understanding. The risks, benefits, and alternatives of sedation and/or procedure were discussed by physician. The patient agrees to continue. Procedure started. [facility] Clinical Fraility Score: 3: Managing Well. 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 Chest Pain Symptom Assessment: Typical Angina Symptoms. Correct patient, site and procedure confirmed by cath team. Current diagnosis: Chest Pain. IV Fluids: 0.9% NaCl at KVO. 0 mL infused prior to lab director. Pre Procedural Pulses: bilateral dorsalis pedis was 3+. Pre Procedural Pulses: bilateral posterior tibial was 2+. Pre Procedural Pulses: bilateral radial was 2+. Oxygen started at 2liters/min via nasal canula. right groin was prepped with chloroprep then draped in the usual sterile fashion. right radial was prepped with chloroprep then draped in the usual sterile fashion. Baseline sample Acquired. HR: 70 BPM. Physician arrived. Physician scrubbed in. Immediate Pre-Procedure Time Out. Correct Patient: Yes; Correct Procedure: Yes; Correct Site: Yes; Correct Patient Position: Yes; Correct Supplies: Yes; Dried Flammable Prep: Yes; Blood Products Available: N/A;. Lidocaine 1% infiltrated to the right radial. Arterial access obtained. A 5 bulgarian TIG catheter in over wire. Multiple views taken of left coronary artery. Catheter redirected to the RCA. Catheter removed over the exchange wire. A 5 bulgarian JR4 catheter in over wire. Multiple views taken of right coronary artery. Catheter removed over the exchange wire. A 5 bulgarian Angled Pig catheter in over wire. EDP Sample taken: LV 135/-2,17; HR: 60 BPM; SpO2: 99%. LV gram performed in LAMA @ 10 mL/second for a total of 30 mL. EDP Sample taken: LV 129/-2,17; HR: 62 BPM; SpO2: 99%. Pullback taken: LV 128/-3,16; AO 122/56(83); Mean: 6mmHg, Peak to Peak: 6mmHg, SEP: 18sec/min; HR: 62 BPM; SpO2: 99%. Catheter removed over the exchange wire. A TR Band was successful obtaining hemostatsis at the Right Radial artery insertion site. Post Procedure: Pulses reassessed and unchanged. PERRLA. Strong, equal hand transportation inspector bilaterally. No VTE prophylaxis required. Medication's Wasted: Lidocaine 1% = 18 mL. Medication's Wasted: Nitro = 49.8 mcg. Medication's Wasted: Other = Fentanyl 50mcg Versed 1 mg. Total IV fluids: 250 mL. Medication's Wasted: Heparin = 1000 units. Vital chart was stopped. Post-op diagnosis: Non-obstructive CAD. Complications: None. Estimated blood loss: 5mL-10mL. Responsiveness - Normal response to verbal stimuli; alert and oriented, PERRLA. Airway - Unaffected, no intervention required; spontaneous ventilation. Circulation: W/N/L, pulses unchanged. Nausea/Vomiting: No. Procedure completed. Patient transferred by bed to 1st floor. Access Site Site: Right Radial artery Sheath Size: 6 Fr Hemostasis Method: TR Band Hemostasis Success: Successful Procedure Medications Start: 6:16 AM Stop: 6:16 AM Medication: Versed Amount: 1 mg Route: I.V. Start: 6:16 AM Stop: 6:16 AM Medication: Fentanyl Amount: 50 mcg Route: I.V. Start: 6:27 AM Stop: 6:27 AM Medication: Nitrogylcerin Amount: 200 mcg Route: I.A. Start: 6:30 AM Stop: 6:30 AM Medication: Heparin Amount: 5000 units Route: I.V. Start: 6:32 AM Stop: 6:32 AM Medication: 0.9% Saline Amount: 250 ml Route: I.V. bolus I, the attending physician, have reviewed and verified all procedure medications. Yes, all medications given per verbal order History/Risk Factors Hypertension: No Dyslipidemia: No Peripheral Arterial Disease (PAD): No Myocardial Infarction (MD): No Obesity: No Renal Disease: No Tobacco Use: Current/Recent(w/in 1 year) Prior Interventions PCI: No CABG: No Valve Surgery: No Report Signatures Finalized by Kaycee Mckinnon MD on 11/30/2024 06:58 AM
--- NOTE | 2024-11-30 06:05 | PC.NURSE ---
patient taken to laborer/key man
--- NOTE | 2024-11-30 06:13 | W.PM.OPSUD ---
Surgery/Procedure H&P Update DATE OF PROCEDURE: November 30, 2024 DATE H&P PERFORMED: 11/23/24 H&P UPDATE INFORMATION: I have reviewed H&P completed within last 30 days, I have examined patient prior to procedure and No changes to prior documentation PREOP DIAGNOSIS: New onset of heart failure PRIMARY INDICATION FOR PROCEDURE: New onset of LV dysfunction New onset of heart failure Shock PATIENT REASSESSED PRIOR TO SEDATION, WITH NO CHANGE NOTED: Yes PHYSICAL EXAM: alert, oriented x 3, clear to auscultation bilaterally, regular rate & rhythm and operative site marked AIRWAY EVAL/ANESTHESIA PLAN: ASA II, Risks, benefits & alternatives of sedation and/or procedure discussed and Patient agrees to continue as planned ADDITIONAL INFORMATION: Patient is explained all risk-benefit and alternative for the procedure. Patient understand 2% risk of stroke major bleed. Patient understand 5% risk of minor bleeding bruising infection hematoma patient understand 5% risk of contrast-induced nephropathy urgent or emergent vascular or cardiothoracic surgery pseudoaneurysm. Patient fully understood and agreed to it. Patient would like to proceed with that.
[2024-11-30] MEDS: metoprolol succinate ER (24 HR) 25 mg Tablet PO (07:35)
[2024-11-30] MEDS: multivitamin therapeutic Tablet 1 TAB PO (07:35)
--- NOTE | 2024-11-30 10:20 | PC.SOCIAL ---
IMM Update pg 2 of IMM Updated and reviewed w/ patient. Copy provided and copy dated, initialed and placed in chart.
--- NOTE | 2024-11-30 10:41 | PC.NURSE ---
Initiated TR band removal at 0830 removing 2ml of air every 10-15min until all air removed. TR band removed at this time. No s/s of bleeding or hematoma formation. Covered site with 2x2 and coban. Instructed patient on site care with restrictions. Patient verbalized complete understanding. Patient denies pain or needs at this time.
--- NOTE | 2024-11-30 11:09 | P.PN_ITS ---
<Statement entered by Kaycee Mckinnon MD - 11/30/24 11:45> Patient was evaluated and cared for in conjunction with an advanced practice practitioner. I personally examined the patient and reviewed the chart and all pertinent data including imaging, telemetry, and laboratory results. I discussed the patient in detail with the advanced practice practitioner. Please see their note for complete H&P testing result and agreed upon plan of care for the patient. Patient underwent left heart catheterization which did not show any obstructive coronary artery disease he has nonobstructive lesion 30% in RCA and luminal irregularities at that vessels including left main. Ejection fraction improved from less than 30% to 40% now. GENERAL: Patient is alert, awake and oriented x3. HEART: Regular S1 and S2. No murmur, rub or gallop. LUNGS: Clear to auscultate bilaterally. CENTRAL NERVOUS SYSTEM: Grossly nonfocal. EXTREMITIES: Lower extremities with out edema bilaterally. Assessment and plan New onset of heart failure New onset of severe LV dysfunction now improved to moderate 40% Alcohol abuse Tobacco abuse Etiology of the cardiomyopathy is nonischemic could be stress-induced versus alcohol induced continue beta-brett 12.5 mg metoprolol , Add lisinopril 2.5 mg since patient does not tolerate because of blood pressure Continue aspirin and statin Ideally should be on Entresto but patient is not tolerating it Will use diuretics as needed basis Will see patient as an outpatient in 7 to 10 days. Once blood pressure improves will optimize heart failure medications Subjective 2 Subjective: Coronary angiogram today did not show any significant stenosis, distal LAD 20% disease, proximal RCA 30% disease. LVEF by LV gram 40%, he does not need a LifeVest. Vitals/I&O/Wt Last Vital Signs Temp 97.2 F L 11/30/24 08:00 Pulse 73 11/30/24 10:30 Resp 18 11/30/24 10:30 BP 90/54 11/30/24 10:30 Pulse Ox 95 11/30/24 08:00 O2 Del Method Room Air 11/30/24 08:00 O2 Flow Rate 2 11/25/24 18:00 FiO2 30 11/24/24 13:21 11/29/24 11/30/24 11/30/24 22:59 06:59 14:59 Intake Total 360 / 1320 240 / 240 Balance 360 / 1320 240 / 240 Weight last 48 hrs Weight 123 lb 11.2 oz Weight 123 lb 10.869 oz Physical Exam 2 Const: COMMON NORMALS: no acute distress and patient oriented x3 GENERAL APPEARANCE: cooperative ORIENTATION/CONSCIOUSNESS: Yes awake, Yes oriented to person, Yes oriented to place and Yes oriented to time Chest: COMMONS NORMALS: normal inspection of the chest and normal palpation of entire chest wall CHEST: Yes Symmetrical chest wall rise Resp: COMMON NORMALS: normal respiratory effort, No retractions, No use of accessory muscles and clear to auscultation bilaterally AUSCULTATION: clear to auscultation bilaterally Cardio: COMMON NORMALS: regular rate, regular rhythm, S1 normal heart sound present, S2 normal heart sound present, No gallops present (Cardio), No clicks present (Cardio), No murmurs present (Cardio) and No rub (Cardio) RATE: r egular rate RHYTHM: regular rhythm HEART SOUNDS: S1 normal heart sound present and S2 normal heart sound present PERIPHERAL PULSES: radial pulses present positive right 2+ and femoral pulses present positive right 2+ Neuro: COMMON NORMALS: patient oriented x3 and moves all extremities S ENSORIUM/ORIENTATION: Yes oriented to person, Yes oriented to place and Yes oriented to time Skin: WOUNDS: Yes surgical site (no hematoma palpable) Details: no odor Urinary Catheter Management: Hernadez: Cath Placed During This Visit: yes, but has since been removed by the nurse Reason for Continuing Indwelling Catheter: Acute Urinary Retention or Obstruction Urinary Catheter Date of Insertion: 11/22/24 Urinary Catheter Time of Insertion: 19:00 Date Urinary Catheter Removed: 11/28/24 Time Urinary Catheter Discontinued: 15:50 Data 11/30/24 03:52 11/30/24 03:52 A&P Assessment and plan 1. Systolic CHF: 2. Takotsubo cardiomyopathy: Plan: Nonischemic cardiomyopathy by coronary angiography today. He appears euvolemic, chest pain-free. He can discharge home today once TR band is removed with as needed Lasix 40 mg daily for a weight gain greater than 3 pounds in 24 hours or 5 pounds in a week, lisinopril 2.5 mg daily in the evening, metoprolol succinate 12.5 mg daily in the morning, atorvastatin 40 mg daily. Follow-up with cardiology clinic in 2 weeks. I requested that he buy a blood pressure cuff and maintain a blood pressure log. Also discussed abstinence from alcohol. PDMP PDMP Reviewed: Not Reviewed Attestations 2 Medical Necessity Statement*: Probable discharge today Coding Level of Care Code Acute Code for Chg Fwd Diagnoses Systolic CHF I50.20 Takotsubo cardiomyopathy I51.81
--- NOTE | 2024-11-30 12:03 | PM.DCS ---
Discharge Providers Date of Admission: 11/22/24 16:24 Date of Discharge: November 30, 2024 Attending Provider at Admission: Mati Talavera MD Attending Provider at Discharge: Martha Eid MD Primary Care Provider: Yao Mckeon MD Diagnoses at Discharge Discharge Diagnosis 1. Systolic CHF: 2. Takotsubo cardiomyopathy: 3. Alcohol withdrawal: 4. Wernicke encephalopathy: Reason for Visit Reason for Visit: [facility] Hospital Course Hospital Course 69-year-old male with a past medical history of alcoholism, Warnicke's encephalopathy, history of hyponatremia, hypomagnesemia, transaminitis, history of thrombocytopenia, history of alcohol associated protein calorie malnutrition, who presented to [facility] on November 22, 2024 due to altered mental status. He received Haldol, ketamine, still combative in the emergency room, intubated in the ER. Extubated on 11/24/24, stable resp status since then. He was admitted to the hospital in view of delirium tremens and acute hypoxic respiratory failure. CT of the head was performed which showed 40% chronic stenosis of the proximal left subclavian artery. Unlikely to be the cause of his symptoms. He received high-dose thiamine 200 mg 3 times a day for 5 days. He was found to have elevated troponins 30--> 288--> 301, EKG showed early repolarization changes with sinus tachycardia. He was found to have an aspiration pneumonia and received 5 days of IV antibiotics for this reason. He required pressor support due to hypotension and shock and was able to be weaned off. Echocardiogram showed an EF of 27% and mild RV hypokinesia. Patient underwent an angiogram today, 11/30/2024 to evaluate for underlying ischemic disease.No obstructive CAD was found. His blood pressure remained on the softer side with systolic in the 90s therefore Entresto was unable to be added at this time. Etiology of the cardiomyopathy is nonischemic could be stress-induced versus alcohol induced. Ultrasound of the gallbladder showed borderline hepatomegaly and increased echogenicity suggesting hepatic steatosis likely compatible with alcoholic hepatitis. The gallbladder was normal without any gallstones. Slightly dilated CBD was noted at 9 mm without any blocking stones. LFTs have currently stabilized. He is being discharged today in stable condition with recommendations to continue as needed Lasix 40 mg daily for a weight gain greater than 3 pounds in 24 hours or 5 pounds in a week, lisinopril 2.5 mg daily in the evening, metoprolol succinate 12.5 mg daily in the morning, atorvastatin 40 mg daily. Physical Exam Narrative: General: No acute distress, AO x3 HEENT: PERRLA, pupils bilaterally equal and reactive, pallors not present Chest: Normal vesicular breath sounds, no added sounds, equal good air entry bilaterally CVS: S1-S2 regular, no murmurs, no tachycardia, no gallops, no rubs Abdomen: Soft, nontender, no organomegaly, bowel sounds present Neuro: No focal deficits, no facial deformity, AO x3, power 5/5 in all limbs Urinary Catheter Management: Hernadez: Cath Placed During This Visit: yes, but has since been removed by the nurse Reason for Continuing Indwelling Catheter: Acute Urinary Retention or Obstruction Urinary Catheter Date of Insertion: 11/22/24 Urinary Catheter Time of Insertion: 19:00 Date Urinary Catheter Removed: 11/28/24 Time Urinary Catheter Discontinued: 15:50 Discharge Data Studies Completed and Pending Completed Studies During Hospitalization Category Date Time Status CT angio headneck* [id number]/41456 Stat Cat Scan 11/22/24 14:[address] [place] [id number] Routine Cat Scan 11/23/24 00:[address] head thrombolytic 47708 Stat Cat Scan 11/22/24 14:22 Completed [employer] request for service Routine Exams 11/30/24 05:10 Completed CXRP [XR chest 1V portable [id number]] Routine Exams 11/23/24 08:24 Completed XR chest 1V portable [id number] Routine Exams 11/29/24 06:00 Completed XR chest 1V portable [id number] Stat Exams 11/22/24 14:21 Completed XR chest 1V portable [id number] Stat Exams 11/22/24 15:13 Completed CV. echo complete* [id number] Routine Ultrasound 11/22/24 18:17 Completed US gall bladder 51175 Routine Ultrasound 11/27/24 14:01 Completed Pending at discharge Category Date Time Status [employer] request for service Routine Exams 11/30/24 06:00 Stop Req Basic Metabolic Panel AM LABS Lab 12/01/24 04:00 Ordered CMP [Comprehensive Metabolic Panel] AM LABS Lab 12/01/24 04:00 Ordered CMP [Comprehensive Metabolic Panel] AM LABS Lab 12/02/24 04:00 Ordered Complete Blood Count w/Auto AM LABS Lab 12/01/24 04:00 Ordered Complete Blood Count w/Auto AM LABS Lab 12/01/24 04:00 Ordered Complete Blood Count w/Auto AM LABS Lab 12/02/24 04:00 Ordered MAG [Magnesium] AM LABS Lab 12/01/24 04:00 Ordered MAG [Magnesium] AM LABS Lab 12/02/24 04:00 Ordered Vitamin B1(Thiamin) Plas/Ser Stat Lab 11/22/24 16:25 Received Radiology Impressions Head/Neck CTA 11/22/24 14:21 IMPRESSION: 1. No significant cervical ICA stenosis. 2. No flow-limiting intracranial stenosis. 3. Approximately 40% chronic stenosis proximal LEFT subclavian artery. RIGHT subclavian artery is patent. Head CT 11/22/24 14:22 IMPRESSION: 1. No evidence of intracranial hemorrhage or mass effect. 2. No acute intracranial findings. Notified Tomasa Herron MD at 11/22/2024 2:39 PM. Chest/Abdomen/Pelvis CT 11/23/24 00:01 IMPRESSION: 1. Small bilateral pleural effusions with infiltrates in the RIGHT greater than LEFT lower lobe suspicious for pneumonia. 2. Chronic emphysematous changes. 3. No acute findings in the abdomen or pelvis. Gallbladder Ultrasound 11/27/24 14:01 IMPRESSION: 1. Dilated common duct. 2. Borderline thickened gallbladder wall. Chest X-Ray 11/29/24 06:00 Impression: Atherosclerosis. Laboratory Results WBC 7.94 10^3/uL (3.29-11.43) 11/30/24 03:52 RBC 3.12 10^6/uL (3.85-5.65) L 11/30/24 03:52 Hgb 10.90 g/dL (11.27-16.99) L 11/30/24 03:52 Hct 31.3 % (37-53) L 11/30/24 03:52 MCV 100.3 fl (82-101) 11/30/24 03:52 MCH 34.9 pg (27-33) H 11/30/24 03:52 MCHC 34.8 g/dL (30-55) 11/30/24 03:52 RDW 13.7 % (12.1-15.1) 11/30/24 03:52 Plt Count 399 10^3/cmm (157-399) D 11/30/24 03:52 MPV 10.4 fL (7.4-10.4) 11/30/24 03:52 Neut % (Auto) 57.2 % 11/30/24 03:52 Lymph % (Auto) 16.6 % 11/30/24 03:52 [place]once % (Auto) 17.3 % 11/30/24 03:52 Eos % (Auto) 4.2 % 11/30/24 03:52 Baso % (Auto) 2.3 % 11/30/24 03:52 Neut # (Auto) 4.55 10^3/uL (1.8-7.7) 11/30/24 03:52 Lymph # (Auto) 1.3 10^3/uL (0.8-4.8) 11/30/24 03:52 [place]once # (Auto) 1.4 10^3/uL (0.2-0.9) H 11/30/24 03:52 Eos # (Auto) 0.3 10^3/uL (0.0-0.8) 11/30/24 03:52 Baso # (Auto) 0.2 10^3/uL (0.0-0.1) H 11/30/24 03:52 Nucleated RBC % (auto) 0 % 11/30/24 03:52 Nucleated RBCs # 0.0 /100WBC 11/30/24 03:52 Peripher Smr Path Cons Sent for review 11/22/24 16:25 ESR 4 mm/hr (0-10) 11/22/24 16:25 Haptoglobin 18.0 mg/L (30-200) L 11/22/24 15:23 PT 13.00 SECONDS (12.1-14.9) 11/25/24 03:15 INR 0.92 (0.8-1.2) 11/25/24 03:15 APTT 25.2 SECONDS (23.9-36.7) 11/22/24 15:23 Specimen Type Arterial 11/24/24 04:50 Sample Site Radial, right 11/24/24 04:50 ABG pH 7.38 (7.35-7.45) 11/24/24 04:50 ABG pCO2 43.8 mmHg (35-45) 11/24/24 04:50 ABG pO2 61.7 mmHg (80.0-100.0) L 11/24/24 04:50 ABG PO2/FiO2 Ratio 205 11/24/24 04:50 ABG HCO3 26.0 mmol/L (22-26) 11/24/24 04:50 ABG O2 Saturation > 99.1 11/22/24 16:00 ABG Base Excess 0.6 mmol/L (-2.0-2.0) 11/24/24 04:50 Aaron Test Pos 11/24/24 04:50 A-a O2 Gradient 22.9 mmHg (5-10) H 11/22/24 16:00 Hematocrit 33.1 % (42-52) L 11/24/24 04:50 Hgb O2 Saturation 97.6 % (95-100) 11/22/24 16:00 Carboxyhemoglobin 2.7 %THgb (0.4-20.1) 11/22/24 16:00 Methemoglobin 0.2 % (0.4-1.5) L 11/22/24 16:00 Total Hemoglobin 13.7 g/dL (14-18) L 11/22/24 16:00 Sodium 132.0 mmol/L (131-143) 11/22/24 16:00 Potassium 3.2 mmol/L (3.5-5.0) L 11/22/24 16:00 Glucose 181.0 mg/dL (70-115) H 11/22/24 16:00 Ionized Calcium 1.1 mmol/L (1.1-1.4) 11/22/24 16:00 O2 Delivery Device Vent 11/24/24 04:50 FiO2 30.0 % 11/24/24 04:50 Tidal Volume 0.45 11/24/24 04:50 PEEP 5.0 cmH20 11/24/24 04:50 Rad Tech ID yorna 11/24/24 04:50 Sodium 142 mmol/L (136-145) 11/30/24 03:52 Potassium 3.4 mmol/L (3.5-5.1) L 11/30/24 03:52 Chloride 103 mmol/L (98-107) 11/30/24 03:52 Carbon Dioxide 29 mmol/L (22-29) 11/30/24 03:52 Anion Gap 13.4 (5-19) 11/30/24 03:52 BUN 20 mg/dL (8-23) 11/30/24 03:52 Creatinine 0.6 mg/dL (0.7-1.2) L 11/30/24 03:52 GFR Calculation 134.4 mL/min (90-130) H 11/30/24 03:52 Glucose 101 mg/dL (65-115) 11/30/24 03:52 POC Glucose 95 mg/dL (70-110) 11/23/24 22:24 Estimat Average Glucose 103 11/22/24 16:25 Hemoglobin A1c 5.2 % (4.0-6.0) 11/22/24 16:25 Calculated Osmolality 297 mOsm/kg (285-295) H 11/30/24 03:52 Lactic Acid 1.1 mmol/L (0.5-2.2) 11/22/24 15:23 Lactate 0.7 mmol/L (0.5-2.2) 11/25/24 03:15 Calcium 9.7 mg/dL (8.5-10.5) 11/30/24 03:52 Phosphorus 3.0 mg/dL (2.5-4.5) 11/25/24 03:15 Magnesium 1.4 mg/dL (1.7-2.3) L 11/30/24 03:52 Total Bilirubin 0.5 mg/dL (0.15-1.2) 11/30/24 03:52 AST 45 U/L (0-40) H 11/30/24 03:52 ALT 51 U/L (0-41) H 11/30/24 03:52 Alkaline Phosphatase 72 U/L (40-130) 11/30/24 03:52 Ammonia 22 umol/L (16-60) 11/24/24 02:15 Lactate Dehydrogenase 278 U/L (135-225) H 11/22/24 15:23 Creatine Kinase 145 U/L (39-308) 11/25/24 03:15 Troponin T Baseline 30 ng/L (0-15) H 11/22/24 15:23 Troponin T 120 Minute 288.3 ng/L (0-15) H 11/22/24 18:15 Delta Troponin T 258.3 ABS# (0-10) H* 11/22/24 18:15 Troponin T Hi Sens 6Hr 301.4 ng/L (0-15) H 11/22/24 21:40 Troponin T Hi Sens 6Hr Delta 271.4 ng/L (0-12) H* 11/22/24 21:40 C-Reactive Protein 181.6 mg/L (0.0-4.9) H 11/25/24 03:15 NT-Pro-B Natriuret Pep 382 pg/mL (0-125) H 11/28/24 03:33 Total Protein 6.3 g/dL (6.6-8.7) L 11/30/24 03:52 Albumin 3.9 g/dL (3.5-5.2) 11/30/24 03:52 Globulin 2.4 g/dL (1.3-4.6) 11/30/24 03:52 Triglycerides 96 mg/dL (0-150) 11/22/24 16:25 Cholesterol 144 mg/dL (0-200) 11/22/24 16:25 LDL Cholesterol, Calc 66 mg/dL (50-129) 11/22/24 16:25 HDL Cholesterol 59 mg/dL (60-100) L 11/22/24 16:25 LDL/HDL Ratio 1.12 RATIO (0.00-3.22) 11/22/24 16:25 Cholesterol/HDL Ratio 2.44 mg/dL (1.0-5.00) 11/22/24 16:25 Lipase 144 U/L (13-60) H 11/22/24 15:23 Vitamin B12 1069 pg/mL (232-1245) 11/22/24 15:23 Folate 15.4 ng/mL (4.5-32.2) 11/22/24 15:23 Procalcitonin 0.27 ng/mL (0-0.5) 11/25/24 03:15 TSH 3.64 uIU/mL (0.27-4.20) 11/22/24 16:25 Urine Color Yellow (Yellow) 11/22/24 14:50 Urine Appearance Clear (CLEAR) 11/22/24 14:50 Urine pH 7.5 (5-7) 11/22/24 14:50 Ur Specific [place] 1.044 (1.005-1.030) H 11/22/24 14:50 Urine Protein 1+ (Negative) A 11/22/24 14:50 Urine Glucose (UA) Negative (Normal) 11/22/24 14:50 Urine Ketones Negative (Negative) 11/22/24 14:50 Urine Blood Negative (Negative) 11/22/24 14:50 Urine Nitrate Negative (Negative) 11/22/24 14:50 Urine Bilirubin Negative (Negative) 11/22/24 14:50 Urine Urobilinogen 1.0 mg/dL (Negative) 11/22/24 14:50 Ur Leukocyte Esterase Negative (Negative) 11/22/24 14:50 Urine RBC 0-2 /hpf (0-2) 11/22/24 14:50 Urine WBC 0-5 /hpf (0-5) 11/22/24 14:50 Ur Squamous Epith Cells 0-5 /hpf (0-5) 11/22/24 14:50 Amorphous Sediment Not Reportable 11/22/24 14:50 Urine Bacteria None seen /hpf (NONE) 11/22/24 14:50 Hyaline Casts 3.71 /lpf 11/22/24 14:50 Vancomycin Trough 18.8 ug/mL (10-15) H 11/26/24 18:39 Urine Opiates Screen Negative ng/mL (Negative) 11/22/24 21:42 Ur Barbiturates Screen Negative ng/mL (Negative) 11/22/24 21:42 Ur Phencyclidine Scrn Negative ng/mL (Negative) 11/22/24 21:42 Ur Amphetamines Screen Negative ng/mL (Negative) 11/22/24 21:42 U Benzodiazepines Scrn Negative ng/mL (Negative) 11/22/24 21:42 Urine Cocaine Screen Negative ng/mL (Negative) 11/22/24 21:42 U Marijuana (THC) Screen Positive ng/mL (Negative) H 11/22/24 21:42 Ethyl Alcohol < 10 mg/dL (0-10) 11/22/24 15:23 Vitals Last Vital Signs Temp 97.2 F L 11/30/24 08:00 Pulse 71 11/30/24 11:29 Resp 25 H 11/30/24 11:29 BP 105/26 11/30/24 11:29 Pulse Ox 95 11/30/24 08:00 O2 Del Method Room Air 11/30/24 08:00 O2 Flow Rate 2 11/25/24 18:00 FiO2 30 11/24/24 13:21 Discharge Plan Discharge Patient Disposition: Home Condition: Stable Prescriptions: New atorvastatin 40 mg Tablet 40 mg PO BEDTIME 30 Days Qty: 30 0RF thiamine mononitrate (vit B1) [Vitamin B-1 (mononitrate)] 100 mg Tablet 100 mg PO DAILY 30 Days Qty: 30 0RF lisinopril 2.5 mg tablet 2.5 mg PO DAILY Qty: 30 0RF metoprolol succinate 25 mg Tablet Extended Release 24 Hr 12.5 mg PO DAILY 30 Days Qty: 30 0RF furosemide [Lasix] 40 mg tablet 40 mg PO DAILY PRN (Reason: weight gain) Qty: 30 0RF Rx Instructions: weight gain greater than 3 pounds in 24 hours or 5 pounds in a week, Continued acetaminophen [Tylenol Extra Strength] 500 mg tablet 500 mg PO Q6H PRN (Reason: Pain) Referrals: Yao Mckeon MD [Primary Care Provider, Family Practice] - 12/07/24 1:00 pm Javier Solares MD [Physician, Cardiology] - 12/23/24 11:00 am Patient Instructions: Altered Mental Status (ED), Opioid Safety, Patient Portal & Yina Instructions Discharge Attestations Time Spent in Discharge Care*: greater than 30 min Quality Metrics Clinical Quality Measures [ No reported AMI, CVA or VTE this stay] Coding Level of Care Code Acute Code for Chg Fwd Diagnoses Systolic CHF I50.20 Takotsubo cardiomyopathy I51.81 Alcohol withdrawal F10.939 Wernicke encephalopathy E51.2
--- NOTE | 2024-11-30 14:58 | PC.NURSE ---
Patient discharged to home. Instruction provided regarding follow up needs and new medications. Patient verbalized understanding. Dressing to right wrist remains c,d,i without s/s of bleeding or hematoma formation observed. patient left ambulatory to meet son at front entrance. Patient denies pain or needs. No distress observed.
[2024-12-01 12:40] LABS: Vitamin B1(Thiamin) Plas/Ser >1200 nmol/L (8-30)
== END 2024-11-30 15:00 | disposition home or self-care (01) | DRG 208 ==
LOC: ER 16:07 → ICU 16:24 → CSU 11-28 10:54
PROVIDERS: Internal Medicine Cardiovascular Disease; Admitting Provider Family Medicine; Emergency Provider Emergency Medicine; PCP Family Medicine; Visit Provider Student in an Organized Health Care Education/Training Program
PROC: 4A023N7 Measurement of Cardiac Sampling and Pressure, Left Heart, Percutaneous Approach (ICD-10-PCS; principal; 2024-11-30 06:00)
DX: J96.01 Acute respiratory failure with hypoxia (principal); A41.9 Sepsis, unspecified organism; I21.4 Non-ST elevation (NSTEMI) myocardial infarction; R65.21 Severe sepsis with septic shock; J18.9 Pneumonia, unspecified organism; J69.0 Pneumonitis due to inhalation of food and vomit; E51.2 Wernicke's encephalopathy; F10.231 Alcohol dependence with withdrawal delirium; E46 Unspecified protein-calorie malnutrition; E87.1 Hypo-osmolality and hyponatremia; Z68.1 Body mass index [BMI] 19.9 or less, adult; G40.89 Other seizures; I51.81 Takotsubo syndrome; I50.20 Unspecified systolic (congestive) heart failure; I25.10 Atherosclerotic heart disease of native coronary artery without angina pectoris; K80.20 Calculus of gallbladder without cholecystitis without obstruction; K70.10 Alcoholic hepatitis without ascites; D69.6 Thrombocytopenia, unspecified; I70.298 Other atherosclerosis of native arteries of extremities, other extremity; R74.01 Elevation of levels of liver transaminase levels; F17.200 Nicotine dependence, unspecified, uncomplicated; E83.42 Hypomagnesemia; R15.9 Full incontinence of feces; Z79.82 Long term (current) use of aspirin; Z79.899 Other long term (current) drug therapy
CPT/HCPCS: 36415; 36416; 36573; 36592; 36600; 51702; 70450; 70496; 70498; 71045; 71250; 74176; 76705; 80051; 80053; 80061; 80202; 80306; 80307; 80503; 81001; 82140; 82330; 82550; 82607; 82746; 82803; 82805; 82962; 83010; 83036; 83605; 83615; 83690; 83735; 83880; 84100; 84145; 84425; 84443; 84484; 85025; 85610; 85651; 85730; 86140; 87040; 87070; 87205; 92507; 92523; 92526; 92610; 93005; 93306; 93458; 94002; 94003; 94640; 94664; 94799; 96366; 96372; 96374; 96375; 97116; 97161; 97165; 99152; 99153; 99291; 99292; C1751; C1769; C1887; C1894; J1644; J1650; J1938; J2250; J2470; J2543; J2704; J3010; J3373; J3411; J3475; J3480; J3490; J7030; J7050; J7120; J9999; P9046; Q0163; Q9967